=== PATIENT | female | born 1945 | race Asian ===

== ENCOUNTER 2018-10-25 09:27 | Inpatient (IN) | payer MEDICAID, OTHER ==
[~2018-10-25] VITALS: Ht 149.9 cm; Wt 69.4 kg
[~2018-10-25 09:27] MED LIST: ASPI-482 PO; GABA-585 PO; GLIP2.5T4 PO; MECL12.5 PO; METF500T9 PO; METO-239 PO; METO25TA4 PO; SIMV40TA3 PO
[2018-10-25] MEDS ORDERED: IPRATRPIUM/ALBUTEROL 0.5/2.5MG 3 ML NEBU. NEB ONE ×2 (09:45→11:15)
[2018-10-25] MEDS ORDERED: methylPREDNISolone SOD SUCC PF 125 MG/2 ML VIAL. IV ONE (09:45)
--- NOTE | 2018-10-25 09:45 | PHYS DOC ---
Past Medical History Past Medical History: Diabetes-Type II, Hypertension Past Surgical History: Coronary Bypass Surgery, Other Additional Past Surgical Histo: Cardiac Stents Alcohol Use: None Drug Use: None Adult General Chief Complaint Chief Complaint: SHORTNESS OF BREATH HPI HPI 73-year-old female was sent to the ER by her primary care physician for complaints of shortness of air and productive cough. Per daughter patient over the past few days has had increased shortness of air and was exposed to RSV. Patient has history of COPD and uses O2 PRN- she arrived with no oxygen on an initial O2 sat was 77% on room air. Pt denies CP, fever, N/V/D, or body aches. Pt's dgtr is translating as pt speaks no Surinamese. Review of Systems Review of Systems Constitutional: Denies fever or chills [] Eyes: Denies change in visual acuity, redness, or eye pain [] HENT: Denies nasal congestion or sore throat [] Respiratory: Reports cough/SOA Cardiovascular: Denies CP GI: Denies abdominal pain, nausea, vomiting, bloody stools or diarrhea [] : Denies dysuria or hematuria [] Musculoskeletal: Denies back/neck pain or joint pain [] Integument: Denies rash, swelling or skin lesions [] Neurologic: Denies headache, focal weakness or sensory changes [] Endocrine: Denies polyuria or polydipsia [] All other systems were reviewed and found to be within normal limits, except as documented in this note. Current Medications Current Medications Current Medications Medications (Trade) Dose Ordered Sig/Pipo Start Time Stop Time Status Last Admin Dose Admin Albuterol/ Ipratropium (Duoneb) 3 ml 1X ONCE 10/25/18 11:15 10/25/18 11:16 DC 10/25/18 11:17 3 ML Aspirin (Children'S Aspirin) 324 mg 1X ONCE 10/25/18 11:45 10/25/18 11:46 DC 10/25/18 12:00 324 MG Doxycycline Hyclate (Vibra-Tab) 100 mg 1X ONCE 10/25/18 11:45 10/25/18 11:46 DC 10/25/18 12:00 100 MG Methylprednisolone Sodium Succinate (SOLU-Medrol 125MG VIAL) 125 mg 1X ONCE 10/25/18 09:45 10/25/18 09:46 DC 10/25/18 10:49 125 MG Allergies Allergies Allergies Coded Allergies Type Severity Reaction Last Updated Verified No Known Drug Allergies 12/06/15 No Physical Exam Physical Exam Constitutional: Well developed, well nourished, no acute distress, non-toxic appearance. [] HENT: Normocephalic, atraumatic, bilateral ears normal, oropharynx moist, no oral exudates, nose normal. [] Eyes: Pupils equal, conjunctiva normal, no discharge. [] Neck: Normal range of motion, no tenderness, supple, no stridor. [] Cardiovascular: Heart rate regular rhythm, no murmur [] Lungs & Thorax: Coarse rhonchi bilat. upper lung wylie with slight expiratory wheeze rt upper lobe- diminished in bases. Resp. equal/nonlabored. Occasional dry cough during exam Abdomen: Bowel sounds normal, soft, no tenderness Skin: Warm, dry, no erythema, no rash. [] Back: No tenderness, no CVA tenderness. [] Extremities: No tenderness, no cyanosis, no clubbing, ROM intact, no edema. [] Neurologic: Alert and oriented X 3, normal motor function, normal sensory function, no focal deficits noted. [] Psychologic: Affect normal, judgement normal, mood normal. [] Current Patient Data Vital Signs Vital Signs Date Time Temp Pulse Resp B/P (MAP) Pulse Ox O2 Delivery O2 Flow Rate FiO2 10/25/18 11:45 68 20 175/86 (115) 95 Nasal Cannula 3.5 10/25/18 09:44 99.7 99.7 Lab Values Laboratory Tests Test 10/25/18 10:05 10/25/18 10:51 Influenza Type A Antigen Negative (NEGATIVE) Influenza Type B Antigen Negative (NEGATIVE) White Blood Count 7.4 x10^3/uL (4.0-11.0) Red Blood Count 5.75 x10^6/uL (3.50-5.40) H Hemoglobin 16.6 g/dL (12.0-15.5) H Hematocrit 49.7 % (36.0-47.0) H Mean Corpuscular Volume 86 fL (79-100) Mean Corpuscular Hemoglobin 29 pg (25-35) Mean Corpuscular Hemoglobin Concent 33 g/dL (31-37) Red Cell Distribution Width 14.8 % (11.5-14.5) H Platelet Count 97 x10^3/uL (140-400) L Neutrophils (%) (Auto) 78 % (31-73) H Lymphocytes (%) (Auto) 12 % (24-48) L Monocytes (%) (Auto) 9 % (0-9) Eosinophils (%) (Auto) 1 % (0-3) Basophils (%) (Auto) 0 % (0-3) Neutrophils # (Auto) 5.8 x10^3uL (1.8-7.7) Lymphocytes # (Auto) 0.8 x10^3/uL (1.0-4.8) L Monocytes # (Auto) 0.7 x10^3/uL (0.0-1.1) Eosinophils # (Auto) 0.1 x10^3/uL (0.0-0.7) Basophils # (Auto) 0.0 x10^3/uL (0.0-0.2) Sodium Level 141 mmol/L (136-145) Potassium Level 3.9 mmol/L (3.5-5.1) Chloride Level 101 mmol/L (98-107) Carbon Dioxide Level 31 mmol/L (21-32) Anion Gap 9 (6-14) Blood Urea Nitrogen 20 mg/dL (7-20) Creatinine 1.3 mg/dL (0.6-1.0) H Estimated GFR (Cockcroft-Gault) 40.2 BUN/Creatinine Ratio 15 (6-20) Glucose Level 167 mg/dL (70-99) H Lactic Acid Level 1.7 mmol/L (0.4-2.0) Calcium Level 8.8 mg/dL (8.5-10.1) Magnesium Level 1.8 mg/dL (1.8-2.4) Total Bilirubin 1.4 mg/dL (0.2-1.0) H Aspartate Amino Transferase (AST) 25 U/L (15-37) Alanine Aminotransferase (ALT) 26 U/L (14-59) Alkaline Phosphatase 78 U/L (46-116) Troponin I Quantitative 0.085 ng/mL (0.000-0.055) DR-Niq-T-Type Natriuretic Peptide 890 pg/mL (0-124) H Total Protein 7.4 g/dL (6.4-8.2) Albumin 3.4 g/dL (3.4-5.0) Albumin/Globulin Ratio 0.9 (1.0-1.7) L Triglycerides Level 144 mg/dL (0-150) Cholesterol Level 252 mg/dL (0-200) H LDL Cholesterol, Calculated 177 mg/dL (0-100) H VLDL Cholesterol, Calculated 29 mg/dL (0-40) Non-HDL Cholesterol Calculated 206 mg/dL (0-129) H HDL Cholesterol 46 mg/dL (40-60) Cholesterol/HDL Ratio 5.5 Thyroid Stimulating Hormone (TSH) 1.079 uIU/mL (0.358-3.74) Laboratory Tests 10/25/18 10:51 Laboratory Tests 10/25/18 10:51 EKG EKG EKG obtained 10/25/[address] Schmidt Sinus rhythm Rate 70 No STEMI Radiology/Procedures Radiology/Procedures PROCEDURE: CHEST AP ONLY Portable chest, 10/25/2018: HISTORY: Chest pain, shortness of breath Comparison is made to a study from 12/06/2015. There has been a previous median sternotomy. The heart is mildly enlarged. There is calcific plaquing of the aorta. The pulmonary vascularity is normal. No pulmonary infiltrate is seen. There is no evidence of pleural fluid. Moderate spurring is present in the spine. IMPRESSION: 1. Cardiomegaly and aortic atherosclerosis. 2. No acute cardiopulmonary abnormality is detected. Electronically signed by: Onel Mooney MD (10/25/2018 9:53 AM) [facility] DICTATED and SIGNED BY: ONEL MOONEY MD DATE: 10/25/18 0952 Course & Med Decision Making Course & Med Decision Making Pertinent Labs and Imaging studies reviewed. (See chart for details) 1200: Patient was sent to the ER by her primary care physician for complaints of shortness of air. Patient has had coarse lung sounds in upper lung wylie with rotatory wheeze. Patient arrived to the ER without oxygen and initial saturation was 66-70%. Patient was placed on O2 via nasal cannula at 3 L and oxygenation improved to 88-90%. Patient was given 2 DuoNeb treatments and IV Solu-Medrol 125 mg. Patient had EKG with no acute ST elevation or STEMI her troponin was elevated at 0.085-with patient denying any chest pain. Chest x-ray with "Cardiomegaly and aortic atherosclerosis. No acute cardiopulmonary abnormality is detected" per report. Flu test neg. Patient had no improvement in lung sounds following treatments and so with elevated troponin discussed test results and plans for admission with patient's daughter who translated for pt. Pt will be given 324 mg of aspirin. Patient will also be started on doxycycline. Blood cultures were obtained. Patient had normal limits lactic at 1.7 WBCs normal limits at 7.4 with platelets down at 97 bands on differential. 1257: Spoke with Dr. Lawrence who called back for Dr. Morrison pt's PCP- discussed pt 's case and admit plan. Will admit to [facility] for further monitoring. Will consult cardiology with admit orders for elevated troponin. Or Staff Physician Addendum: I was working in the ER during the course of this patient's visit. I was available for consultation as needed, but I was not directly involved in the care of this patient. I Alexon Disclaimer Dragon Disclaimer This electronic medical record was generated, in whole or in part, using a voice recognition dictation system. Departure Departure Impression: Primary Impression: Dyspnea Additional Impressions: COPD exacerbation Elevated troponin Disposition: ADMITTED INPATIENT Admitting Physician: Marilee Morrison Condition: STABLE Referrals: MARILEE MORRISON MD (PCP) Scripts Cholecalciferol (Vitamin D3) (Vitamin D) 50,000 Unit Capsule 04447 UNIT PO WEEKLY for replacement for 30 Days, #3 CAP Prov: Hayden SUMMERS MD 10/25/18 Tiotropium [place] (SPIRIVA) 18 Mcg Cap.w.dev 1 CAP IH DAILY for lungs, #30 CAP 3 Refills Prov: Hayden SUMMERS MD 10/25/18 Loratadine (CLARITIN) 10 Mg Tablet 1 TAB PO DAILY for allergies, #30 TAB 5 Refills Prov: Hayden SUMMERS MD 10/25/18 Losartan Potassium (LOSARTAN POTASSIUM) 50 Mg Tablet 50 MG PO DAILY for HYPERTENSION for 30 Days, #30 TAB Prov: Hayden SUMMERS MD 10/25/18 Furosemide (LASIX) 20 Mg Tablet 1 TAB PO DAILY for chf, #90 TAB 1 Refill Prov: Hayden SUMMERS MD 10/25/18 Atorvastatin Calcium (ATORVASTATIN CALCIUM) 40 Mg Tablet 1 TAB PO DAILY for cholesterol, #30 TAB 5 Refills Prov: Hayden SUMMERS MD 10/25/18 Problem Qualifiers RM SIMEON APRN Oct 25, 2018 09:45 JULIO SCHMIDT MD Oct 26, 2018 06:05
--- NOTE | 2018-10-25 09:58 | RAD ---
Portable chest, 10/25/2018: HISTORY: Chest pain, shortness of breath Comparison is made to a study from 12/06/2015. There has been a previous median sternotomy. The heart is mildly enlarged. There is calcific plaquing of the aorta. The pulmonary vascularity is normal. No pulmonary infiltrate is seen. There is no evidence of pleural fluid. Moderate spurring is present in the spine. IMPRESSION: 1. Cardiomegaly and aortic atherosclerosis. 2. No acute cardiopulmonary abnormality is detected. Electronically signed by: Onel Mooney MD (10/25/2018 9:53 AM) [facility]
--- NOTE | 2018-10-25 10:22 | EKG ---
[facility] [address] [place] [address] Test Date: 2018-10-25 Test Time: 10:08:57 Pat Name: TRACEY LOPEZ Department: Room: Gender: F Set Builder: : [id number] Requested By: RM SIMEON Order Number: [id number] Reading MD: Fran Juarez MD Measurements Intervals [place] Rate: 69 P: [place]: QRS: 25 QRSD: 82 T: 41 QT: 414 QTc: 450 Interpretive Statements SR NON-SPECIFIC ST/T CHANGES Electronically Signed On 10-25-2018 12:34:58 CAP MAKER by Fran Juarez MD
[2018-10-25 10:35] LABS: INFLUENZA A PATIENT NEGATIVE (NEGATIVE); INFLUENZA B PATIENT NEGATIVE (NEGATIVE)
[2018-10-25 11:05] LABS: BASO % 0 % (0-3); EOS # 0.1 x10^3/uL (0.0-0.7); EOS % 1 % (0-3); HEMATOCRIT 49.7 % (36.0-47.0); HEMOGLOBIN 16.6 g/dL (12.0-15.5); LYMPH # 0.8 x10^3/uL (1.0-4.8); LYMPH % 12 % (24-48); MEAN CORPUSCULAR HEMOGLOBIN 29 pg (25-35); MEAN CORPUSCULAR HGB CONC 33 g/dL (31-37); MEAN CORPUSCULAR VOLUME 86 fL (79-100); MONO # 0.7 x10^3/uL (0.0-1.1); MONO % 9 % (0-9); NEUT # 5.8 x10^3uL (1.8-7.7); NEUT % 78 % (31-73); PLATELET COUNT 97 x10^3/uL (140-400); RED BLOOD COUNT 5.75 x10^6/uL (3.50-5.40); RED CELL DISTRIBUTION WIDTH 14.8 % (11.5-14.5); WHITE BLOOD COUNT 7.4 x10^3/uL (4.0-11.0)
[2018-10-25 11:14] LABS: CALCIUM 8.8 mg/dL (8.5-10.1); CREATININE 1.3 mg/dL (0.6-1.0); GFR 40.2; POTASSIUM 3.9 mmol/L (3.5-5.1)
[2018-10-25 11:20] LABS: ALBUMIN 3.4 g/dL (3.4-5.0); ALBUMIN/GLOBULIN RATIO 0.9 (1.0-1.7); MAGNESIUM 1.8 mg/dL (1.8-2.4); TOTAL BILIRUBIN 1.4 mg/dL (0.2-1.0); TOTAL PROTEIN 7.4 g/dL (6.4-8.2)
[2018-10-25] MEDS ORDERED: DOXYCYCLINE HYCLATE 100 MG TABLET PO ONE (11:45)
[2018-10-25] MEDS ORDERED: ASPIRIN CHEWABLE 81 MG TABLET. PO ONE (11:45)
[2018-10-25 14:35] LABS: BILIRUBIN,URINE NEGATIVE (NEG); CLARITY,URINE CLEAR; COLOR,URINE AMBER; NITRITE,URINE NEGATIVE (NEG); PROTEIN,URINE >=300 mg/dL (NEG-TRACE)
[2018-10-25 14:42] LABS: BACTERIA,URINE FEW /HPF (0-FEW); HYALINE CASTS, URINE FEW /HPF; RBC,URINE OCC /HPF (0-2); SQUAMOUS EPITHELIAL CELL,UR MANY /LPF; WBC,URINE OCC /HPF (0-4)
--- NOTE | 2018-10-25 15:01 | PDOC2 ---
BRITTANY NUÑEZ LAWN TECHNICIAN 10/25/18 1501: CARDIAC CONSULT DATE OF CONSULT Date of Consult DATE: 10/25/18 TIME: 14:47 REASON FOR CONSULT Reason for Consult: elevated troponin REFERRING PHYSICIAN Referring Physician: diamond SOURCE Source: Caregiver (daughter), Chart review, Patient HISTORY OF PRESENT ILLNESS HISTORY OF PRESENT ILLNESS This is a 73 yo female admitted for complains of SOA and productive cough with white sputum. She has been exposed to RSV from her 2 yo nephew recently. Her SOA and cough started about last week and was getting worse. No reported fever. She also has COPD from significant secondary tobacco exposure at her younger years and has not been routinely using her advair and albuterol. Denies any chest pain or SOA prior to this event. She has been having intermittent shapr simon pain since her cough started and again reproducible with cough. Presently her SOA is better and no CP. she has had aortic dissection repair and CABG in 2009 and has not seen her burlesque dancer in a while otherwise she has been complaint with her medications. PAST MEDICAL HISTORY Cardiovascular: CAD, HTN, Hyperlipidemia, Other (aortic dissection with repair in 2009) CENTRAL NERVOUS SYSTEM: Periperal neuropathy, Vertigo, Other (meningioma) GI: No pertinent hx Musculoskeletal: Osteoarthritis Infectious disease: No pertinent hx ENT: No pertinent hx Renal/: Chronic renal insuff (?) Endocrine: Diabetes (2) Dermatology: No pertinent hx PAST SURGICAL HISTORY Past Surgical History: CABG, Other (PCI/stent) FAMILY HISTORY Family History noncontributory SOCIAL HISTORY Smoke: No ALCOHOL: none Drugs: None Lives: with Family CURRENT MEDICATIONS CURRENT MEDICATIONS Current Medications Medications (Trade) Dose Ordered Sig/Pipo Route PRN Reason Start Time Stop Time Status Last Admin Dose Admin Albuterol/ Ipratropium (Duoneb) 3 ml 1X ONCE NEB 10/25/18 09:45 10/25/18 09:46 DC 10/25/18 09:54 Methylprednisolone Sodium Succinate (SOLU-Medrol 125MG VIAL) 125 mg 1X ONCE IV 10/25/18 09:45 10/25/18 09:46 DC 10/25/18 10:49 Albuterol/ Ipratropium (Duoneb) 3 ml 1X ONCE NEB 10/25/18 11:15 10/25/18 11:16 DC 10/25/18 11:17 Doxycycline Hyclate (Vibra-Tab) 100 mg 1X ONCE PO 10/25/18 11:45 10/25/18 11:46 DC 10/25/18 12:00 Aspirin (Children'S Aspirin) 324 mg 1X ONCE PO 10/25/18 11:45 10/25/18 11:46 DC 10/25/18 12:00 ALLERGIES ALLERGIES: Coded Allergies: No Known Drug Allergies (Unverified , 12/06/15) ROS Review of System limited: SANJU, language barrier PHYSICAL EXAM General: Alert, Oriented X3, Cooperative, mild distress HEENT: Atraumatic, Mucous membr. moist/pink Lungs: Other (faint wheeze) Heart: Regular rate (SR), Normal S1, Normal S2, No murmurs Abdomen: Soft, No tenderness Extremities: No cyanosis, No edema Skin: No breakdown, No significant lesion Neuro: Normal speech, Sensation intact Psych/Mental Status: Mental status NL, Mood NL MUSCULOSKELETAL: Osteoarthritic changes both hands VITALS VITALS Vital Signs Date Time Temp Pulse Resp B/P (MAP) Pulse Ox O2 Delivery O2 Flow Rate FiO2 10/25/18 14:07 74 20 169/86 (113) 98 Nasal Cannula 3.5 10/25/18 09:44 99.7 99.7 LABS Lab: Laboratory Tests Test 10/25/18 10:05 10/25/18 10:51 10/25/18 14:20 Influenza Type A Antigen Negative (NEGATIVE) Influenza Type B Antigen Negative (NEGATIVE) White Blood Count 7.4 x10^3/uL (4.0-11.0) Red Blood Count 5.75 x10^6/uL (3.50-5.40) Hemoglobin 16.6 g/dL (12.0-15.5) Hematocrit 49.7 % (36.0-47.0) Mean Corpuscular Volume 86 fL (79-100) Mean Corpuscular Hemoglobin 29 pg (25-35) Mean Corpuscular Hemoglobin Concent 33 g/dL (31-37) Red Cell Distribution Width 14.8 % (11.5-14.5) Platelet Count 97 x10^3/uL (140-400) Neutrophils (%) (Auto) 78 % (31-73) Lymphocytes (%) (Auto) 12 % (24-48) Monocytes (%) (Auto) 9 % (0-9) Eosinophils (%) (Auto) 1 % (0-3) Basophils (%) (Auto) 0 % (0-3) Neutrophils # (Auto) 5.8 x10^3uL (1.8-7.7) Lymphocytes # (Auto) 0.8 x10^3/uL (1.0-4.8) Monocytes # (Auto) 0.7 x10^3/uL (0.0-1.1) Eosinophils # (Auto) 0.1 x10^3/uL (0.0-0.7) Basophils # (Auto) 0.0 x10^3/uL (0.0-0.2) Sodium Level 141 mmol/L (136-145) Potassium Level 3.9 mmol/L (3.5-5.1) Chloride Level 101 mmol/L (98-107) Carbon Dioxide Level 31 mmol/L (21-32) Anion Gap 9 (6-14) Blood Urea Nitrogen 20 mg/dL (7-20) Creatinine 1.3 mg/dL (0.6-1.0) Estimated GFR (Cockcroft-Gault) 40.2 BUN/Creatinine Ratio 15 (6-20) Glucose Level 167 mg/dL (70-99) Lactic Acid Level 1.7 mmol/L (0.4-2.0) Calcium Level 8.8 mg/dL (8.5-10.1) Magnesium Level 1.8 mg/dL (1.8-2.4) Total Bilirubin 1.4 mg/dL (0.2-1.0) Aspartate Amino Transf (AST/SGOT) 25 U/L (15-37) Alanine Aminotransferase (ALT/SGPT) 26 U/L (14-59) Alkaline Phosphatase 78 U/L (46-116) Troponin I Quantitative 0.085 ng/mL (0.000-0.055) LI-Upt-A-Type Natriuretic Peptide 890 pg/mL (0-124) Total Protein 7.4 g/dL (6.4-8.2) Albumin 3.4 g/dL (3.4-5.0) Albumin/Globulin Ratio 0.9 (1.0-1.7) Urine Collection Type Unknown Urine Color [place] Urine Clarity Clear Urine pH 6.0 Urine Specific [place] >=1.030 Urine Protein >=300 mg/dL (NEG-TRACE) Urine Glucose (UA) Negative mg/dL (NEG) Urine Ketones (Stick) Negative mg/dL (NEG) Urine Blood Trace (NEG) Urine Nitrite Negative (NEG) Urine Bilirubin Negative (NEG) Urine Urobilinogen Dipstick 1.0 mg/dL (0.2 mg/dL) Urine Leukocyte Esterase Negative (NEG) Urine RBC Occ /HPF (0-2) Urine WBC Occ /HPF (0-4) Urine Squamous Epithelial Cells Many /LPF Urine Bacteria Few /HPF (0-FEW) Urine Hyaline Casts Few /HPF Urine Mucus Marked /LPF ASSESSMENT/PLAN ASSESSMENT/PLAN 1. AECOPD: recent RSV exposure. Noncompliant with her inhalers. 2. Elevated troponin: initial at 0.085, EKG SR no acute changes. Demand mediated due to hypoxia. 3. Thrombocytopenia: possibly reactive. defer to PCP 4. HTN: controlled 5. HLP 6. DM2/DPN 7. Suspect CKD3 with macroalbuminuria 8. CAD: past CABG, clinically stable. 9. Pleuritic CP: reproducible with cough Recommendations 1. TTE, lipids and TSH. 2. Consult pulmonary. Solumedrol given in ED. 3. Consider outpt stress test as an outpt unless significant changes to TTE. and will trend troponin 4. Continue secondary prevention measures. 5. May follow up with burlesque dancer upon discharge. LUIS MIGUEL MEHTA MD 10/26/18 0915: CARDIAC CONSULT ASSESSMENT/PLAN ASSESSMENT/PLAN Patient seen and examined 10/25/18. Agree with BREWING DIRECTOR's assessment and plan. Slight troponin elevation probably demand ischemia. CAD status clinically stable overall. Check 2-D echo to assess LV function and rule out wall motion abnormalities. Consider ischemic evaluation as an outpatient. Continue current treatment for acute COPD exacerbation. Thank you for your consultation. BRITTANY NUÑEZ APRN Oct 25, 2018 15:01 LUIS MIGUEL MEHTA MD Oct 26, 2018 09:15
[2018-10-25 15:37] LABS: CHOLESTEROL/HDL RATIO 5.5
[2018-10-25 16:00] VITALS: BP 151/55
[2018-10-25] MEDS ORDERED: ALBU2.5V8 INH (16:04)
[2018-10-25] MEDS ORDERED: SITA50TA PO (16:04)
[2018-10-25] MEDS ORDERED: ERGO500027 PO (16:04)
[2018-10-25] MEDS ORDERED: ATOR40TA59 PO (16:57)
[2018-10-25] MEDS ORDERED: FURO-69 PO (16:57)
[2018-10-25] MEDS ORDERED: LORA10TA68 PO (16:57)
[2018-10-25] MEDS ORDERED: CHOL500050 PO (16:57)
[2018-10-25] MEDS ORDERED: LOSA-73 PO (16:57)
[2018-10-25] MEDS ORDERED: TIOT18CA IH (16:57)
[2018-10-25] MEDS ORDERED: MECLIZINE HCL 12.5 MG TABLET. PO PRN (17:00)
[2018-10-25] MEDS ORDERED: ALBUTEROL SULFATE 2.5 MG/3 ML NEBU. INH PRN ×2 (17:00→17:30)
[2018-10-25] MEDS ORDERED: DEXTROSE 50% 25 GM / 50ML DISP.SYRIN. IV PRN (17:00)
[2018-10-25] MEDS ORDERED: GABAPENTIN 100 MG CAPSULE. PO PRN (17:00)
--- NOTE | 2018-10-25 17:39 | PDOC ---
PULMONARY PROGRESS NOTES Vitals Vital Signs Date Time Temp Pulse Resp B/P (MAP) Pulse Ox O2 Delivery O2 Flow Rate FiO2 10/25/18 16:00 97.9 70 16 151/55 (87) 96 97.9 10/25/18 14:07 Nasal Cannula 3.5 Labs Laboratory Tests Test 10/25/18 10:05 10/25/18 10:51 10/25/18 14:20 10/25/18 16:00 Influenza Type A Antigen Negative (NEGATIVE) Influenza Type B Antigen Negative (NEGATIVE) White Blood Count 7.4 x10^3/uL (4.0-11.0) Red Blood Count 5.75 x10^6/uL (3.50-5.40) Hemoglobin 16.6 g/dL (12.0-15.5) Hematocrit 49.7 % (36.0-47.0) Mean Corpuscular Volume 86 fL (79-100) Mean Corpuscular Hemoglobin 29 pg (25-35) Mean Corpuscular Hemoglobin Concent 33 g/dL (31-37) Red Cell Distribution Width 14.8 % (11.5-14.5) Platelet Count 97 x10^3/uL (140-400) Neutrophils (%) (Auto) 78 % (31-73) Lymphocytes (%) (Auto) 12 % (24-48) Monocytes (%) (Auto) 9 % (0-9) Eosinophils (%) (Auto) 1 % (0-3) Basophils (%) (Auto) 0 % (0-3) Neutrophils # (Auto) 5.8 x10^3uL (1.8-7.7) Lymphocytes # (Auto) 0.8 x10^3/uL (1.0-4.8) Monocytes # (Auto) 0.7 x10^3/uL (0.0-1.1) Eosinophils # (Auto) 0.1 x10^3/uL (0.0-0.7) Basophils # (Auto) 0.0 x10^3/uL (0.0-0.2) Sodium Level 141 mmol/L (136-145) Potassium Level 3.9 mmol/L (3.5-5.1) Chloride Level 101 mmol/L (98-107) Carbon Dioxide Level 31 mmol/L (21-32) Anion Gap 9 (6-14) Blood Urea Nitrogen 20 mg/dL (7-20) Creatinine 1.3 mg/dL (0.6-1.0) Estimated GFR (Cockcroft-Gault) 40.2 BUN/Creatinine Ratio 15 (6-20) Glucose Level 167 mg/dL (70-99) Lactic Acid Level 1.7 mmol/L (0.4-2.0) Calcium Level 8.8 mg/dL (8.5-10.1) Magnesium Level 1.8 mg/dL (1.8-2.4) Total Bilirubin 1.4 mg/dL (0.2-1.0) Aspartate Amino Transf (AST/SGOT) 25 U/L (15-37) Alanine Aminotransferase (ALT/SGPT) 26 U/L (14-59) Alkaline Phosphatase 78 U/L (46-116) Troponin I Quantitative 0.085 ng/mL (0.000-0.055) 0.063 ng/mL (0.000-0.055) LG-Zjt-Z-Type Natriuretic Peptide 890 pg/mL (0-124) Total Protein 7.4 g/dL (6.4-8.2) Albumin 3.4 g/dL (3.4-5.0) Albumin/Globulin Ratio 0.9 (1.0-1.7) Triglycerides Level 144 mg/dL (0-150) Cholesterol Level 252 mg/dL (0-200) LDL Cholesterol, Calculated 177 mg/dL (0-100) VLDL Cholesterol, Calculated 29 mg/dL (0-40) Non-HDL Cholesterol Calculated 206 mg/dL (0-129) HDL Cholesterol 46 mg/dL (40-60) Cholesterol/HDL Ratio 5.5 Thyroid Stimulating Hormone (TSH) 1.079 uIU/mL (0.358-3.74) Urine Collection Type Unknown Urine Color Zena Urine Clarity Clear Urine pH 6.0 Urine Specific [place] >=1.030 Urine Protein >=300 mg/dL (NEG-TRACE) Urine Glucose (UA) Negative mg/dL (NEG) Urine Ketones (Stick) Negative mg/dL (NEG) Urine Blood Trace (NEG) Urine Nitrite Negative (NEG) Urine Bilirubin Negative (NEG) Urine Urobilinogen Dipstick 1.0 mg/dL (0.2 mg/dL) Urine Leukocyte Esterase Negative (NEG) Urine RBC Occ /HPF (0-2) Urine WBC Occ /HPF (0-4) Urine Squamous Epithelial Cells Many /LPF Urine Bacteria Few /HPF (0-FEW) Urine Hyaline Casts Few /HPF Urine Mucus Marked /LPF Test 10/25/18 17:00 Glucose (Fingerstick) 353 mg/dL (70-99) Laboratory Tests Test 10/25/18 10:05 10/25/18 10:51 10/25/18 14:20 10/25/18 16:00 Influenza Type A Antigen Negative (NEGATIVE) Influenza Type B Antigen Negative (NEGATIVE) White Blood Count 7.4 x10^3/uL (4.0-11.0) Red Blood Count 5.75 x10^6/uL (3.50-5.40) Hemoglobin 16.6 g/dL (12.0-15.5) Hematocrit 49.7 % (36.0-47.0) Mean Corpuscular Volume 86 fL (79-100) Mean Corpuscular Hemoglobin 29 pg (25-35) Mean Corpuscular Hemoglobin Concent 33 g/dL (31-37) Red Cell Distribution Width 14.8 % (11.5-14.5) Platelet Count 97 x10^3/uL (140-400) Neutrophils (%) (Auto) 78 % (31-73) Lymphocytes (%) (Auto) 12 % (24-48) Monocytes (%) (Auto) 9 % (0-9) Eosinophils (%) (Auto) 1 % (0-3) Basophils (%) (Auto) 0 % (0-3) Neutrophils # (Auto) 5.8 x10^3uL (1.8-7.7) Lymphocytes # (Auto) 0.8 x10^3/uL (1.0-4.8) Monocytes # (Auto) 0.7 x10^3/uL (0.0-1.1) Eosinophils # (Auto) 0.1 x10^3/uL (0.0-0.7) Basophils # (Auto) 0.0 x10^3/uL (0.0-0.2) Sodium Level 141 mmol/L (136-145) Potassium Level 3.9 mmol/L (3.5-5.1) Chloride Level 101 mmol/L (98-107) Carbon Dioxide Level 31 mmol/L (21-32) Anion Gap 9 (6-14) Blood Urea Nitrogen 20 mg/dL (7-20) Creatinine 1.3 mg/dL (0.6-1.0) Estimated GFR (Cockcroft-Gault) 40.2 BUN/Creatinine Ratio 15 (6-20) Glucose Level 167 mg/dL (70-99) Lactic Acid Level 1.7 mmol/L (0.4-2.0) Calcium Level 8.8 mg/dL (8.5-10.1) Magnesium Level 1.8 mg/dL (1.8-2.4) Total Bilirubin 1.4 mg/dL (0.2-1.0) Aspartate Amino Transf (AST/SGOT) 25 U/L (15-37) Alanine Aminotransferase (ALT/SGPT) 26 U/L (14-59) Alkaline Phosphatase 78 U/L (46-116) Troponin I Quantitative 0.085 ng/mL (0.000-0.055) 0.063 ng/mL (0.000-0.055) LK-Wiw-Y-Type Natriuretic Peptide 890 pg/mL (0-124) Total Protein 7.4 g/dL (6.4-8.2) Albumin 3.4 g/dL (3.4-5.0) Albumin/Globulin Ratio 0.9 (1.0-1.7) Triglycerides Level 144 mg/dL (0-150) Cholesterol Level 252 mg/dL (0-200) LDL Cholesterol, Calculated 177 mg/dL (0-100) VLDL Cholesterol, Calculated 29 mg/dL (0-40) Non-HDL Cholesterol Calculated 206 mg/dL (0-129) HDL Cholesterol 46 mg/dL (40-60) Cholesterol/HDL Ratio 5.5 Thyroid Stimulating Hormone (TSH) 1.079 uIU/mL (0.358-3.74) Urine Collection Type Unknown Urine Color Zena Urine Clarity Clear Urine pH 6.0 Urine Specific [place] >=1.030 Urine Protein >=300 mg/dL (NEG-TRACE) Urine Glucose (UA) Negative mg/dL (NEG) Urine Ketones (Stick) Negative mg/dL (NEG) Urine Blood Trace (NEG) Urine Nitrite Negative (NEG) Urine Bilirubin Negative (NEG) Urine Urobilinogen Dipstick 1.0 mg/dL (0.2 mg/dL) Urine Leukocyte Esterase Negative (NEG) Urine RBC Occ /HPF (0-2) Urine WBC Occ /HPF (0-4) Urine Squamous Epithelial Cells Many /LPF Urine Bacteria Few /HPF (0-FEW) Urine Hyaline Casts Few /HPF Urine Mucus Marked /LPF Test 10/25/18 17:00 Glucose (Fingerstick) 353 mg/dL (70-99) Medications Active Scripts Medications Dose Route/Sig Max Daily Dose Days Date Category Dose Instructions Vitamin D (Cholecalciferol (Vitamin D3)) 50,000 Unit Capsule 50,000 Unit PO WEEKLY 30 10/25/18 Rx Spiriva (Tiotropium [place]) 18 Mcg Cap.w.dev 1 Cap IH DAILY 10/25/18 Rx Claritin (Loratadine) 10 Mg Tablet 1 Tab PO DAILY 10/25/18 Rx Losartan Potassium 50 Mg Tablet 50 Mg PO DAILY 30 10/25/18 Rx Lasix (Furosemide) 20 Mg Tablet 1 Tab PO DAILY 10/25/18 Rx Atorvastatin Calcium 40 Mg Tablet 1 Tab PO DAILY 10/25/18 Rx Vitamin D2 (Ergocalciferol (Vitamin D2)) 50,000 Unit Capsule 1 Cap PO WEEKLY 10/25/18 Reported Proair Hfa (Albuterol Sulfate) 8.5 Gm Hfa.aer.ad 1 Puff INH QID PRN 10/25/18 Reported Januvia (Sitagliptin Phosphate) 50 Mg Tablet 1 Tab PO DAILY 10/25/18 Reported Metoprolol Tartrate 25 Mg Tablet 25 Mg PO BID 12/08/15 Reported Aspir 81 (Aspirin) 81 Mg Tablet.dr 1 Tab PO DAILY 12/08/15 Reported Antivert (Meclizine Hcl) 12.5 Mg Tablet 25 Mg PO PRN TID PRN 12/08/15 Rx Glipizide Er (Glipizide) 2.5 Mg Tab.er.24 4 Tab PO DAILY 12/06/15 Reported Gave this morning Take again tomorrow morning Gabapentin (Gabapentin) 100 Mg Capsule 100 Mg PO PRN Q8HRS PRN 12/06/15 Reported Not given on this admission Take as previously directed Metformin Hcl Er (Metformin Hcl) 500 Mg Tab.er.24h 2 Tab PO BID 12/06/15 Reported Gave this morning Take again tonight Impression . DICTATED AECOPD AGREE WITHC CURRENT RX THANKS HERIBERTO MENON MD Oct 25, 2018 17:39
[2018-10-25] MEDS: metFORMIN XR 500 MG TAB.ER.24H PO SCH (17:44)
[2018-10-25] MEDS: INSULIN LISPRO 300 UNITS/3 ML INSULN.PEN. SQ SCH (17:48)
[2018-10-25 19:25] VITALS: BP 192/81
[2018-10-25] MEDS ORDERED: IPRATRPIUM/ALBUTEROL 0.5/2.5MG 3 ML NEBU. NEB SCH (20:00)
[2018-10-25] MEDS: ALBUTEROL SULFATE 2.5 MG/3 ML NEBU. NEB SCH (20:14)
[2018-10-25] MEDS: METOPROLOL TART IMMED RELEASE 25 MG TABLET. PO SCH (21:00)
[2018-10-25] MEDS ORDERED: ATORVASTATIN CALCIUM 40 MG TABLET. PO SCH (21:00)
[2018-10-25] MEDS ORDERED: SIMVASTATIN 40 MG TABLET. PO SCH (21:00)
--- NOTE | 2018-10-25 22:06 | CONS ---
DATE OF CONSULTATION: 10/25/2018 ATTENDING PHYSICIAN: Dr. Morrison. REASON FOR CONSULTATION: The patient seen in pulmonary consultation at the request of Dr. Morrison for hypoxemia. HISTORY OF PRESENT ILLNESS: The patient is a 73-year-old female that was seen by Dr. Morrison in the office for increasing shortness of breath and cough. She was apparently exposed to RSV. She became increasingly more short of breath. She normally wears 2 liters of oxygen supplementation. She was found to have O2 saturation of 77% on room air. She was admitted. I was asked to see her in consultation. Denies fever, chills, nausea, vomiting. PAST MEDICAL AND PAST SURGICAL HISTORY: Type 2 diabetes, hypertension, coronary artery bypass grafting, previous cardiac stenting. REVIEW OF SYSTEMS: CONSTITUTIONAL: No fever or chills. EYES: No change in visual acuity. HEENT: No nasal congestion or sore throat. PULMONARY: As indicated above. CARDIOVASCULAR: No chest pain or pressure. GASTROINTESTINAL: No nausea, vomiting, diarrhea. GENITOURINARY: No dysuria or frequency. CURRENT MEDICATIONS: List was reviewed. ALLERGIES: No known drug allergies. PHYSICAL EXAMINATION: GENERAL: The patient was in no respiratory distress, normally on 2 liters of oxygen supplementation. VITAL SIGNS: She is up to 4 liters now. HEENT: Eyes, the sclerae were nonicteric. NECK: Jugular venous distention was not elevated. No lymphadenopathy. CHEST: Full expansion. LUNGS: Coarse breath sounds, expiratory wheeze. CARDIOVASCULAR: Regular rate and rhythm with S1, S2, no S3. ABDOMEN: Soft, nontender, nondistended. EXTREMITIES: No clubbing, cyanosis or edema. NEUROLOGIC: The patient was awake, alert, following commands. A detailed neuro exam was not performed. LABORATORY DATA: Reviewed. White count was normal. Electrolytes were noted. Chest x-ray: No acute infiltrate. IMPRESSION: 1. Acute on chronic hypoxemic respiratory failure. 2. Acute nonspecific bronchitis. 3. Recent RSV exposure. 4. Significant wheezing, dyspnea secondary to above. PLAN: 1. Continue current support with oxygen supplementation. 2. Nebulized treatments. 3. Steroids. 4. DVT prophylaxis. 5. Continue home meds. I do appreciate the privilege in sharing in this patient's care. HERIBERTO MENON MD DR: ABE/nolvia JOB#: [id number] / [id number]
[2018-10-25 23:44] VITALS: BP 182/81
[2018-10-26 03:46] VITALS: BP 143/83
[2018-10-26 05:02] LABS: BASO % 0 % (0-3); EOS % 0 % (0-3); HEMATOCRIT 46.9 % (36.0-47.0); HEMOGLOBIN 15.9 g/dL (12.0-15.5); LYMPH # 0.8 x10^3/uL (1.0-4.8); LYMPH % 14 % (24-48); MEAN CORPUSCULAR HEMOGLOBIN 29 pg (25-35); MEAN CORPUSCULAR HGB CONC 34 g/dL (31-37); MEAN CORPUSCULAR VOLUME 86 fL (79-100); MONO # 0.3 x10^3/uL (0.0-1.1); MONO % 6 % (0-9); NEUT # 4.3 x10^3uL (1.8-7.7); NEUT % 80 % (31-73); PLATELET COUNT 102 x10^3/uL (140-400); RED BLOOD COUNT 5.43 x10^6/uL (3.50-5.40); RED CELL DISTRIBUTION WIDTH 14.9 % (11.5-14.5); WHITE BLOOD COUNT 5.4 x10^3/uL (4.0-11.0)
[2018-10-26 05:43] LABS: CALCIUM 9.2 mg/dL (8.5-10.1); CREATININE 1.8 mg/dL (0.6-1.0); GFR 27.6; POTASSIUM 3.9 mmol/L (3.5-5.1)
[2018-10-26 07:00] VITALS: BP 161/58
[2018-10-26] MEDS: ALBUTEROL SULFATE 2.5 MG/3 ML NEBU. NEB SCH ×3 (08:00→15:46)
--- NOTE | 2018-10-26 08:48 | PDOC ---
PULMONARY PROGRESS NOTES Subjective PT NOT MORE SOA Vitals Vital Signs Date Time Temp Pulse Resp B/P (MAP) Pulse Ox O2 Delivery O2 Flow Rate FiO2 10/26/18 07:00 97.9 61 20 161/58 (92) 97 Nasal Cannula 3.5 97.9 ROS: No Nausea, No Chest Pain, No Abdominal Pain, No Increase Cough Lungs: Wheezing Cardiovascular: S1, S2 Abdomen: Soft Neuro Exam: Alert Extremities: No Edema Skin: Warm Labs Laboratory Tests Test 10/25/18 10:05 10/25/18 10:51 10/25/18 14:20 10/25/18 16:00 Influenza Type A Antigen Negative (NEGATIVE) Influenza Type B Antigen Negative (NEGATIVE) White Blood Count 7.4 x10^3/uL (4.0-11.0) Red Blood Count 5.75 x10^6/uL (3.50-5.40) Hemoglobin 16.6 g/dL (12.0-15.5) Hematocrit 49.7 % (36.0-47.0) Mean Corpuscular Volume 86 fL (79-100) Mean Corpuscular Hemoglobin 29 pg (25-35) Mean Corpuscular Hemoglobin Concent 33 g/dL (31-37) Red Cell Distribution Width 14.8 % (11.5-14.5) Platelet Count 97 x10^3/uL (140-400) Neutrophils (%) (Auto) 78 % (31-73) Lymphocytes (%) (Auto) 12 % (24-48) Monocytes (%) (Auto) 9 % (0-9) Eosinophils (%) (Auto) 1 % (0-3) Basophils (%) (Auto) 0 % (0-3) Neutrophils # (Auto) 5.8 x10^3uL (1.8-7.7) Lymphocytes # (Auto) 0.8 x10^3/uL (1.0-4.8) Monocytes # (Auto) 0.7 x10^3/uL (0.0-1.1) Eosinophils # (Auto) 0.1 x10^3/uL (0.0-0.7) Basophils # (Auto) 0.0 x10^3/uL (0.0-0.2) Sodium Level 141 mmol/L (136-145) Potassium Level 3.9 mmol/L (3.5-5.1) Chloride Level 101 mmol/L (98-107) Carbon Dioxide Level 31 mmol/L (21-32) Anion Gap 9 (6-14) Blood Urea Nitrogen 20 mg/dL (7-20) Creatinine 1.3 mg/dL (0.6-1.0) Estimated GFR (Cockcroft-Gault) 40.2 BUN/Creatinine Ratio 15 (6-20) Glucose Level 167 mg/dL (70-99) Lactic Acid Level 1.7 mmol/L (0.4-2.0) Calcium Level 8.8 mg/dL (8.5-10.1) Magnesium Level 1.8 mg/dL (1.8-2.4) Total Bilirubin 1.4 mg/dL (0.2-1.0) Aspartate Amino Transf (AST/SGOT) 25 U/L (15-37) Alanine Aminotransferase (ALT/SGPT) 26 U/L (14-59) Alkaline Phosphatase 78 U/L (46-116) Troponin I Quantitative 0.085 ng/mL (0.000-0.055) 0.063 ng/mL (0.000-0.055) IU-Nxk-W-Type Natriuretic Peptide 890 pg/mL (0-124) Total Protein 7.4 g/dL (6.4-8.2) Albumin 3.4 g/dL (3.4-5.0) Albumin/Globulin Ratio 0.9 (1.0-1.7) Triglycerides Level 144 mg/dL (0-150) Cholesterol Level 252 mg/dL (0-200) LDL Cholesterol, Calculated 177 mg/dL (0-100) VLDL Cholesterol, Calculated 29 mg/dL (0-40) Non-HDL Cholesterol Calculated 206 mg/dL (0-129) HDL Cholesterol 46 mg/dL (40-60) Cholesterol/HDL Ratio 5.5 Thyroid Stimulating Hormone (TSH) 1.079 uIU/mL (0.358-3.74) Urine Collection Type Unknown Urine Color Zena Urine Clarity Clear Urine pH 6.0 Urine Specific [place] >=1.030 Urine Protein >=300 mg/dL (NEG-TRACE) Urine Glucose (UA) Negative mg/dL (NEG) Urine Ketones (Stick) Negative mg/dL (NEG) Urine Blood Trace (NEG) Urine Nitrite Negative (NEG) Urine Bilirubin Negative (NEG) Urine Urobilinogen Dipstick 1.0 mg/dL (0.2 mg/dL) Urine Leukocyte Esterase Negative (NEG) Urine RBC Occ /HPF (0-2) Urine WBC Occ /HPF (0-4) Urine Squamous Epithelial Cells Many /LPF Urine Bacteria Few /HPF (0-FEW) Urine Hyaline Casts Few /HPF Urine Mucus Marked /LPF Test 10/25/18 17:00 10/25/18 19:00 10/25/18 20:56 10/26/18 04:20 Glucose (Fingerstick) 353 mg/dL (70-99) 293 mg/dL (70-99) Troponin I Quantitative 0.068 ng/mL (0.000-0.055) White Blood Count 5.4 x10^3/uL (4.0-11.0) Red Blood Count 5.43 x10^6/uL (3.50-5.40) Hemoglobin 15.9 g/dL (12.0-15.5) Hematocrit 46.9 % (36.0-47.0) Mean Corpuscular Volume 86 fL (79-100) Mean Corpuscular Hemoglobin 29 pg (25-35) Mean Corpuscular Hemoglobin Concent 34 g/dL (31-37) Red Cell Distribution Width 14.9 % (11.5-14.5) Platelet Count 102 x10^3/uL (140-400) Neutrophils (%) (Auto) 80 % (31-73) Lymphocytes (%) (Auto) 14 % (24-48) Monocytes (%) (Auto) 6 % (0-9) Eosinophils (%) (Auto) 0 % (0-3) Basophils (%) (Auto) 0 % (0-3) Neutrophils # (Auto) 4.3 x10^3uL (1.8-7.7) Lymphocytes # (Auto) 0.8 x10^3/uL (1.0-4.8) Monocytes # (Auto) 0.3 x10^3/uL (0.0-1.1) Eosinophils # (Auto) 0.0 x10^3/uL (0.0-0.7) Basophils # (Auto) 0.0 x10^3/uL (0.0-0.2) Sodium Level 142 mmol/L (136-145) Potassium Level 3.9 mmol/L (3.5-5.1) Chloride Level 102 mmol/L (98-107) Carbon Dioxide Level 29 mmol/L (21-32) Anion Gap 11 (6-14) Blood Urea Nitrogen 35 mg/dL (7-20) Creatinine 1.8 mg/dL (0.6-1.0) Estimated GFR (Cockcroft-Gault) 27.6 Glucose Level 186 mg/dL (70-99) Calcium Level 9.2 mg/dL (8.5-10.1) Test 10/26/18 07:12 Glucose (Fingerstick) 163 mg/dL (70-99) Laboratory Tests Test 10/25/18 10:05 10/25/18 10:51 10/25/18 14:20 10/25/18 16:00 Influenza Type A Antigen Negative (NEGATIVE) Influenza Type B Antigen Negative (NEGATIVE) White Blood Count 7.4 x10^3/uL (4.0-11.0) Red Blood Count 5.75 x10^6/uL (3.50-5.40) Hemoglobin 16.6 g/dL (12.0-15.5) Hematocrit 49.7 % (36.0-47.0) Mean Corpuscular Volume 86 fL (79-100) Mean Corpuscular Hemoglobin 29 pg (25-35) Mean Corpuscular Hemoglobin Concent 33 g/dL (31-37) Red Cell Distribution Width 14.8 % (11.5-14.5) Platelet Count 97 x10^3/uL (140-400) Neutrophils (%) (Auto) 78 % (31-73) Lymphocytes (%) (Auto) 12 % (24-48) Monocytes (%) (Auto) 9 % (0-9) Eosinophils (%) (Auto) 1 % (0-3) Basophils (%) (Auto) 0 % (0-3) Neutrophils # (Auto) 5.8 x10^3uL (1.8-7.7) Lymphocytes # (Auto) 0.8 x10^3/uL (1.0-4.8) Monocytes # (Auto) 0.7 x10^3/uL (0.0-1.1) Eosinophils # (Auto) 0.1 x10^3/uL (0.0-0.7) Basophils # (Auto) 0.0 x10^3/uL (0.0-0.2) Sodium Level 141 mmol/L (136-145) Potassium Level 3.9 mmol/L (3.5-5.1) Chloride Level 101 mmol/L (98-107) Carbon Dioxide Level 31 mmol/L (21-32) Anion Gap 9 (6-14) Blood Urea Nitrogen 20 mg/dL (7-20) Creatinine 1.3 mg/dL (0.6-1.0) Estimated GFR (Cockcroft-Gault) 40.2 BUN/Creatinine Ratio 15 (6-20) Glucose Level 167 mg/dL (70-99) Lactic Acid Level 1.7 mmol/L (0.4-2.0) Calcium Level 8.8 mg/dL (8.5-10.1) Magnesium Level 1.8 mg/dL (1.8-2.4) Total Bilirubin 1.4 mg/dL (0.2-1.0) Aspartate Amino Transf (AST/SGOT) 25 U/L (15-37) Alanine Aminotransferase (ALT/SGPT) 26 U/L (14-59) Alkaline Phosphatase 78 U/L (46-116) Troponin I Quantitative 0.085 ng/mL (0.000-0.055) 0.063 ng/mL (0.000-0.055) KD-Kbo-Q-Type Natriuretic Peptide 890 pg/mL (0-124) Total Protein 7.4 g/dL (6.4-8.2) Albumin 3.4 g/dL (3.4-5.0) Albumin/Globulin Ratio 0.9 (1.0-1.7) Triglycerides Level 144 mg/dL (0-150) Cholesterol Level 252 mg/dL (0-200) LDL Cholesterol, Calculated 177 mg/dL (0-100) VLDL Cholesterol, Calculated 29 mg/dL (0-40) Non-HDL Cholesterol Calculated 206 mg/dL (0-129) HDL Cholesterol 46 mg/dL (40-60) Cholesterol/HDL Ratio 5.5 Thyroid Stimulating Hormone (TSH) 1.079 uIU/mL (0.358-3.74) Urine Collection Type Unknown Urine Color [place] Urine Clarity Clear Urine pH 6.0 Urine Specific [place] >=1.030 Urine Protein >=300 mg/dL (NEG-TRACE) Urine Glucose (UA) Negative mg/dL (NEG) Urine Ketones (Stick) Negative mg/dL (NEG) Urine Blood Trace (NEG) Urine Nitrite Negative (NEG) Urine Bilirubin Negative (NEG) Urine Urobilinogen Dipstick 1.0 mg/dL (0.2 mg/dL) Urine Leukocyte Esterase Negative (NEG) Urine RBC Occ /HPF (0-2) Urine WBC Occ /HPF (0-4) Urine Squamous Epithelial Cells Many /LPF Urine Bacteria Few /HPF (0-FEW) Urine Hyaline Casts Few /HPF Urine Mucus Marked /LPF Test 10/25/18 17:00 10/25/18 19:00 10/25/18 20:56 10/26/18 04:20 Glucose (Fingerstick) 353 mg/dL (70-99) 293 mg/dL (70-99) Troponin I Quantitative 0.068 ng/mL (0.000-0.055) White Blood Count 5.4 x10^3/uL (4.0-11.0) Red Blood Count 5.43 x10^6/uL (3.50-5.40) Hemoglobin 15.9 g/dL (12.0-15.5) Hematocrit 46.9 % (36.0-47.0) Mean Corpuscular Volume 86 fL (79-100) Mean Corpuscular Hemoglobin 29 pg (25-35) Mean Corpuscular Hemoglobin Concent 34 g/dL (31-37) Red Cell Distribution Width 14.9 % (11.5-14.5) Platelet Count 102 x10^3/uL (140-400) Neutrophils (%) (Auto) 80 % (31-73) Lymphocytes (%) (Auto) 14 % (24-48) Monocytes (%) (Auto) 6 % (0-9) Eosinophils (%) (Auto) 0 % (0-3) Basophils (%) (Auto) 0 % (0-3) Neutrophils # (Auto) 4.3 x10^3uL (1.8-7.7) Lymphocytes # (Auto) 0.8 x10^3/uL (1.0-4.8) Monocytes # (Auto) 0.3 x10^3/uL (0.0-1.1) Eosinophils # (Auto) 0.0 x10^3/uL (0.0-0.7) Basophils # (Auto) 0.0 x10^3/uL (0.0-0.2) Sodium Level 142 mmol/L (136-145) Potassium Level 3.9 mmol/L (3.5-5.1) Chloride Level 102 mmol/L (98-107) Carbon Dioxide Level 29 mmol/L (21-32) Anion Gap 11 (6-14) Blood Urea Nitrogen 35 mg/dL (7-20) Creatinine 1.8 mg/dL (0.6-1.0) Estimated GFR (Cockcroft-Gault) 27.6 Glucose Level 186 mg/dL (70-99) Calcium Level 9.2 mg/dL (8.5-10.1) Test 10/26/18 07:12 Glucose (Fingerstick) 163 mg/dL (70-99) Medications Active Scripts Medications Dose Route/Sig Max Daily Dose Days Date Category Dose Instructions Vitamin D (Cholecalciferol (Vitamin D3)) 50,000 Unit Capsule 50,000 Unit PO WEEKLY 30 10/25/18 Rx Spiriva (Tiotropium [place]) 18 Mcg Cap.w.dev 1 Cap IH DAILY 10/25/18 Rx Claritin (Loratadine) 10 Mg Tablet 1 Tab PO DAILY 10/25/18 Rx Losartan Potassium 50 Mg Tablet 50 Mg PO DAILY 30 10/25/18 Rx Lasix (Furosemide) 20 Mg Tablet 1 Tab PO DAILY 10/25/18 Rx Atorvastatin Calcium 40 Mg Tablet 1 Tab PO DAILY 10/25/18 Rx Vitamin D2 (Ergocalciferol (Vitamin D2)) 50,000 Unit Capsule 1 Cap PO WEEKLY 10/25/18 Reported Proair Hfa (Albuterol Sulfate) 8.5 Gm Hfa.aer.ad 1 Puff INH QID PRN 10/25/18 Reported Januvia (Sitagliptin Phosphate) 50 Mg Tablet 1 Tab PO DAILY 10/25/18 Reported Metoprolol Tartrate 25 Mg Tablet 25 Mg PO BID 12/08/15 Reported Aspir 81 (Aspirin) 81 Mg Tablet.dr 1 Tab PO DAILY 12/08/15 Reported Antivert (Meclizine Hcl) 12.5 Mg Tablet 25 Mg PO PRN TID PRN 12/08/15 Rx Glipizide Er (Glipizide) 2.5 Mg Tab.er.24 4 Tab PO DAILY 12/06/15 Reported Gave this morning Take again tomorrow morning Gabapentin (Gabapentin) 100 Mg Capsule 100 Mg PO PRN Q8HRS PRN 12/06/15 Reported Not given on this admission Take as previously directed Metformin Hcl Er (Metformin Hcl) 500 Mg Tab.er.24h 2 Tab PO BID 12/06/15 Reported Gave this morning Take again tonight Impression . IMPRESSION: 1. Acute on chronic hypoxemic respiratory failure. 2. Acute nonspecific bronchitis. 3. Recent RSV exposure. 4. Significant wheezing, dyspnea secondary to above. Plan . HOME OK BY SPOKE WITH FAMILY HERIBERTO MENON MD Oct 26, 2018 08:48
[2018-10-26] MEDS ORDERED: CETIRIZINE HCL 10 MG TABLET. PO SCH (09:00)
[2018-10-26] MEDS ORDERED: FUROSEMIDE 20 MG TABLET PO SCH (09:00)
[2018-10-26] MEDS ORDERED: ASPIRIN ENTERIC COATED 81 MG TABLET.DR. PO SCH (09:00)
[2018-10-26] MEDS ORDERED: LINAGLIPTIN 5 MG TABLET PO SCH (09:00)
[2018-10-26] MEDS ORDERED: glipiZIDE ER 2.5 MG TAB.ER.24 PO SCH (09:00)
[2018-10-26] MEDS ORDERED: LOSARTAN POTASSIUM 50 MG TABLET. PO SCH ×2 (09:00)
[2018-10-26] MEDS ORDERED: NON FORMULARY ITEM (Tiotropium Bromide (Spiriva) 1 CAP) IH SCH (09:00)
[2018-10-26] MEDS: metFORMIN XR 500 MG TAB.ER.24H PO SCH (09:34)
[2018-10-26] MEDS: METOPROLOL TART IMMED RELEASE 25 MG TABLET. PO SCH (09:37)
[2018-10-26] MEDS: INSULIN LISPRO 300 UNITS/3 ML INSULN.PEN. SQ SCH ×2 (09:43→11:33)
--- NOTE | 2018-10-26 11:02 | CARD ---
MR#: [id number] Date of Study: 10/26/2018 Ordering Physician: BRITTANY NUÑEZ, Referring Physician: VIMAL MONAE Tech: Yulisa Roger RDCS APPROVED REPORT EXAM: Two-dimensional and M-mode echocardiogram with Doppler and color Doppler. Other Information Quality : GoodHR: 63bpm Rhythm : NSR INDICATION CAD 2D DIMENSIONS RVDd2.7 (2.9-3.5cm)Left Atrium(2D)3.9 (1.6-4.0cm) IVSd1.3 (0.7-1.1cm)Aortic Root(2D)3.1 (2.0-3.7cm) LVDd4.6 (3.9-5.9cm)LVOT Diameter2.3 (1.8-2.4cm) PWd0.9 (0.7-1.1cm)LVDs2.4 (2.5-4.0cm) FS (%) 47.8 %SV77.4 ml LVEF(%)79.3 (>50%) M-Mode DIMENSIONS Left Atrium(MM)3.90 (2.5-4.0cm)Aortic Root3.23 (2.2-3.7cm) Aortic Valve AoV Peak Ole.149.9cm/sAoV VTI32.3cm AO Peak GR.9.0mmHgLVOT Peak Ole.100.3cm/s AO Mean GR.5mmHgAVA (VMAX)2.67cm2 HERBERT (VTI)2.49fn9YS P 1/2 Kzzy405oh Mitral Valve MV E Iyqrbaah498.0cm/sMV E Peak Gr.8mmHg MV DECEL [id number] A Hwrcgnsp18.8cm/s MV E Mean Gr.2mmHgE/A Ratio2.1 MV A [id number] Pulmonary Valve PV Peak Iffejlsa737.2cm/s Tricuspid Valve TR P. Addxjkof731xm/sRAP [id number] TR Peak Gr.96jkGlILUA76isZe Pulmonary Vein S1 Jeahhrzr51.3cm/sD2 Robvkehi00.3cm/s LEFT VENTRICLE The left ventricle is normal size. Proximal septal thickening is noted. The left ventricle systolic f unction is hyperdynamic. The Ejection Fraction is >70%. There is normal LV segmental wall motion. Tra nsmitral Doppler flow pattern is Grade II-pseudonormal filling dynamics. RIGHT VENTRICLE The right ventricle is normal size. There is normal right ventricular wall thickness. The right ventr icular systolic function is normal. ATRIA The left atrium size is normal. The right atrium size is normal. The interatrial septum is intact wit h no evidence for an atrial septal defect or patent foramen ovale as noted on 2-D or Doppler imaging. AORTIC VALVE The aortic valve is calcified but opens well. The aortic valve is trileaflet. Doppler and Color Flow revealed mild aortic regurgitation. There is no significant aortic valvular stenosis. MITRAL VALVE There is systolic anterior motion of the mitral valve. There is no evidence of mitral valve prolapse. There is no mitral valve stenosis. Doppler and Color-flow revealed mild mitral regurgitation. TRICUSPID VALVE The tricuspid valve is normal in structure and function. Doppler and Color Flow revealed trace tricus pid regurgitation. There is moderate pulmonary hypertension. The PA pressure was estimated at 58 mmHg . There is no tricuspid valve prolapse or vegetation. There is no tricuspid valve stenosis. PULMONIC VALVE The pulmonary valve is normal in structure and function. Doppler and Color Flow revealed mild pulmoni c valvular regurgitation. There is no pulmonic valvular stenosis. GREAT VESSELS The aortic root is normal in size. The ascending aorta is normal in size. The IVC is normal in size a nd collapses >50% with inspiration. PERICARDIAL EFFUSION There is no evidence of significant pericardial effusion. Critical Notification Critical Value: No <Conclusion> The left ventricle systolic function is hyperdynamic. The Ejection Fraction is >70%. There is normal LV segmental wall motion. Transmitral Doppler flow pattern is Grade II-pseudonormal filling dynamics. Mild aortic regurgitation. Mild mitral regurgitation. Trace tricuspid regurgitation. There is moderate pulmonary hypertension. The PA pressure was estimated at 58 mmHg. There is no evidence of significant pericardial effusion. Signed by : Zheng Bryant, Electronically Approved : 10/26/2018 11:00:37
[2018-10-26 11:09] VITALS: BP 137/77
--- NOTE | 2018-10-26 13:31 | PDOC ---
BRITTANY NUÑEZ MIX MAKER 10/26/18 1331: CARDIO Progress Notes Date and Time Date of Service 10/26/2018 Time of Evaluation 1300 Subjective Subjective: No Chest Pain, No shortness of breath, No Palpitations, Other (SOA much better) Vitals Vitals Vital Signs Date Time Temp Pulse Resp B/P (MAP) Pulse Ox O2 Delivery O2 Flow Rate FiO2 10/26/18 11:18 98 Nasal Cannula 3.0 10/26/18 11:09 98.2 68 20 137/77 (97) 98.2 Weight Weight [ ] Input and Output Intake and Output Intake and Output 10/26/18 07:01 Intake Total 700 ml Output Total 150 ml Balance 550 ml Intake Oral 700 ml Output Urine Total 150 ml # Voids 1 Laboratory Labs Laboratory Tests Test 10/25/18 14:20 10/25/18 16:00 10/25/18 17:00 10/25/18 19:00 Urine Collection Type Unknown Urine Color Zena Urine Clarity Clear Urine pH 6.0 Urine Specific [place] >=1.030 Urine Protein >=300 mg/dL (NEG-TRACE) Urine Glucose (UA) Negative mg/dL (NEG) Urine Ketones (Stick) Negative mg/dL (NEG) Urine Blood Trace (NEG) Urine Nitrite Negative (NEG) Urine Bilirubin Negative (NEG) Urine Urobilinogen Dipstick 1.0 mg/dL (0.2 mg/dL) Urine Leukocyte Esterase Negative (NEG) Urine RBC Occ /HPF (0-2) Urine WBC Occ /HPF (0-4) Urine Squamous Epithelial Cells Many /LPF Urine Bacteria Few /HPF (0-FEW) Urine Hyaline Casts Few /HPF Urine Mucus Marked /LPF Troponin I Quantitative 0.063 ng/mL (0.000-0.055) 0.068 ng/mL (0.000-0.055) Glucose (Fingerstick) 353 mg/dL (70-99) Test 10/25/18 20:56 10/26/18 04:20 10/26/18 07:12 10/26/18 11:20 Glucose (Fingerstick) 293 mg/dL (70-99) 163 mg/dL (70-99) 148 mg/dL (70-99) White Blood Count 5.4 x10^3/uL (4.0-11.0) Red Blood Count 5.43 x10^6/uL (3.50-5.40) Hemoglobin 15.9 g/dL (12.0-15.5) Hematocrit 46.9 % (36.0-47.0) Mean Corpuscular Volume 86 fL (79-100) Mean Corpuscular Hemoglobin 29 pg (25-35) Mean Corpuscular Hemoglobin Concent 34 g/dL (31-37) Red Cell Distribution Width 14.9 % (11.5-14.5) Platelet Count 102 x10^3/uL (140-400) Neutrophils (%) (Auto) 80 % (31-73) Lymphocytes (%) (Auto) 14 % (24-48) Monocytes (%) (Auto) 6 % (0-9) Eosinophils (%) (Auto) 0 % (0-3) Basophils (%) (Auto) 0 % (0-3) Neutrophils # (Auto) 4.3 x10^3uL (1.8-7.7) Lymphocytes # (Auto) 0.8 x10^3/uL (1.0-4.8) Monocytes # (Auto) 0.3 x10^3/uL (0.0-1.1) Eosinophils # (Auto) 0.0 x10^3/uL (0.0-0.7) Basophils # (Auto) 0.0 x10^3/uL (0.0-0.2) Sodium Level 142 mmol/L (136-145) Potassium Level 3.9 mmol/L (3.5-5.1) Chloride Level 102 mmol/L (98-107) Carbon Dioxide Level 29 mmol/L (21-32) Anion Gap 11 (6-14) Blood Urea Nitrogen 35 mg/dL (7-20) Creatinine 1.8 mg/dL (0.6-1.0) Estimated GFR (Cockcroft-Gault) 27.6 Glucose Level 186 mg/dL (70-99) Calcium Level 9.2 mg/dL (8.5-10.1) Microbiology Micro Microbiology 10/25/18 Blood Culture - Preliminary, Resulted NO GROWTH AFTER 1 DAY Physical Exam HEENT: Neck Supple W Full Motion Chest: Symmetric LUNGS: Other (diminished basilar wheeze. ) Heart: S1S2, RRR (SR) Abdomen: Soft N/T Extremities: No Edema, No Calf Tenderness Neurology: alert, follow commands, other (language barrier) Assessment Assessment 1. AECOPD/moderate pulmonary HTN: recent RSV exposure. Noncompliant with her inhalers. SOA better. per pulmonary 2. Elevated troponin: peaked at 0.085, EKG SR no acute changes. Demand mediated due to hypoxia. EF >70% 3. Thrombocytopenia: possibly reactive. defer to PCP 4. HTN: controlled 5. HLP: not on goal 6. DM2/DPN 7. 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 Cr at 1.8 per PCP 8. CAD: past CABG, clinically stable. 9. Pleuritic CP: reproducible with cough 10. Mild valvular insufficiency: mild AI/MR Recommendations 1. Consider outpt stress test as an outpt and will defer to her route delivery service driver 2. Increase lipitor 3. Continue secondary prevention measures. 4. May follow up with route delivery service driver upon discharge. LUIS MIGUEL MEHTA MD 10/26/182039: CARDIO Progress Notes Assessment Assessment Patient seen and examined. Agree with BRASS BOBBIN WINDER's assessment and plan 2D echo showed normal LVF without any WMA Slight trop elevation probably demand ischemia We will consider ischemic evaluation as outpatient BRITTANY NUÑEZ APRN Oct 26, 2018 13:31 LUIS MIGUEL MEHTA MD Oct 26, 2018 20:40
--- NOTE | 2018-10-26 14:39 | PDOC3 ---
DATE OF ADMISSION Date of Admission 10/25/18 DATE OF DISCHARGE Discharge Date 10/26/18 PROBLEM LIST Problems: (1) COPD exacerbation (2) Elevated troponin CONSULTS Consults cardiology and pulmonary PROCEDURES Procedures none LABS Labs Laboratory Tests Test 10/25/18 16:00 10/25/18 17:00 10/25/18 19:00 10/25/18 20:56 Troponin I Quantitative 0.063 ng/mL (0.000-0.055) 0.068 ng/mL (0.000-0.055) Glucose (Fingerstick) 353 mg/dL (70-99) 293 mg/dL (70-99) Test 10/26/18 04:20 10/26/18 07:12 10/26/18 11:20 White Blood Count 5.4 x10^3/uL (4.0-11.0) Red Blood Count 5.43 x10^6/uL (3.50-5.40) Hemoglobin 15.9 g/dL (12.0-15.5) Hematocrit 46.9 % (36.0-47.0) Mean Corpuscular Volume 86 fL (79-100) Mean Corpuscular Hemoglobin 29 pg (25-35) Mean Corpuscular Hemoglobin Concent 34 g/dL (31-37) Red Cell Distribution Width 14.9 % (11.5-14.5) Platelet Count 102 x10^3/uL (140-400) Neutrophils (%) (Auto) 80 % (31-73) Lymphocytes (%) (Auto) 14 % (24-48) Monocytes (%) (Auto) 6 % (0-9) Eosinophils (%) (Auto) 0 % (0-3) Basophils (%) (Auto) 0 % (0-3) Neutrophils # (Auto) 4.3 x10^3uL (1.8-7.7) Lymphocytes # (Auto) 0.8 x10^3/uL (1.0-4.8) Monocytes # (Auto) 0.3 x10^3/uL (0.0-1.1) Eosinophils # (Auto) 0.0 x10^3/uL (0.0-0.7) Basophils # (Auto) 0.0 x10^3/uL (0.0-0.2) Sodium Level 142 mmol/L (136-145) Potassium Level 3.9 mmol/L (3.5-5.1) Chloride Level 102 mmol/L (98-107) Carbon Dioxide Level 29 mmol/L (21-32) Anion Gap 11 (6-14) Blood Urea Nitrogen 35 mg/dL (7-20) Creatinine 1.8 mg/dL (0.6-1.0) Estimated GFR (Cockcroft-Gault) 27.6 Glucose Level 186 mg/dL (70-99) Calcium Level 9.2 mg/dL (8.5-10.1) Glucose (Fingerstick) 163 mg/dL (70-99) 148 mg/dL (70-99) Microbiology 10/25/18 Blood Culture - Preliminary, Resulted NO GROWTH AFTER 1 DAY MEDICATIONS Medications Medications reviewed and reconciled for discharge. CHEIF COMPLAINT Cheif Complaint She was brought to office by her daughter for SOA and was found to be significantly hypoxic despite a neb treatment and sent to ER and subsequently admitted. She has had recent exposure to RSV. She has oxygen at home and uses it intermittently. In the ER her sats came up to 90 % on 2 liters of oxygen, she received Duoneb x 2 and IV solumedrol. Overnight she has improved but remains on O2. Her troponin was elevated initially which also contributed to her being hospitalized, she denied chest pain though PAST MEDICAL HISTORY PMH type 2 diabetes with DPN HTN COPD hypoxia allergic rhinitis AAA Prevnar given 05/28 PAST SURGICAL HISTORY PSH AAA dissection repair 10/2009 SOCIAL HISTORY SH never smoker, no drug use, , lives with and daughter, [place] FAMILY HISTORY FH parents , unknown cause, daughter healthy ALLERGIES Allergies Allergies Coded Allergies Type Severity Reaction Last Updated Verified No Known Drug Allergies 12/06/15 No MEDICATIONS Meds Medications reviewed. REVIEW OF SYSTEMS ROS A 14 point ROS was completed with the following noted as positive: see HPI Other systems reviewed and negative. PHYSICAL EXAM Subjective SOA Objective NAD, A&O HEENT: no acute findings other than mild nasal congestion Neck: supple, no adenopathy Lungs: end expiratory wheezes, good respiratory effort, non labored Heart: RRR, no murmur heard Chest: no tenderness Abdomen: soft and non tender, normal bowel sounds Ext: no C/C/E Skin: no rash, good turgor MS: good tone and strength Neuro: diminished sensation distal legs Vital Signs Vital Signs Date Time Temp Pulse Resp B/P (MAP) Pulse Ox O2 Delivery O2 Flow Rate FiO2 10/26/18 11:18 98 Nasal Cannula 3.0 10/26/18 11:09 98.2 68 20 137/77 (97) 98.2 Assessment Acute COPD exac, elevated troponin in a diabetic that has O2 at home, she has had recent RSV exposure [facility] Note She has improved dramatically overnight with neb treatments, O2 and solumedrol, her blood sugar has been controlled, she has been evaluated by PT and strength is adequate. She did have a slight rise in her creatinine overnight presumably from a dose of furosemide but is eating and drinking well now. Cardiology and Pulmonary have seen her in consultation and have found no further need for hospitalization and recommending discharge. She will be sent home on 12 day prednisone taper and Tyra Nixon FOLLOW UP F/U 1-2 weeks DISPOSITION Dispo home. hold Hayden Contreras MD Oct 26, 2018 14:39
[2018-10-26] MEDS ORDERED: BENZ100C PO (14:43)
[2018-10-26] MEDS ORDERED: PRED-220 PO (14:43)
--- NOTE | 2018-10-26 17:09 | NUR ---
Discharge Note: SUZANNE LOPEZ Discharge instructions and discharge home medications reviewed with Patient and a copy given. All questions have been answered and understanding verbalized. The following instructions and handouts were given: COPD, COPD exacerbation, Troponin Discontinued lines and drains: 20G R-hand removed. Catheter intact. Patient discharged to home with self-care via to private vehicle. Pt. son accepted discharge instuctions. Pt. dressed self and had a steady gait walking to and from to car.
[2018-10-26 19:15] LABS: HEMOGLOBIN A1C 8.3 % (4.8-5.6)
[2018-10-26] MEDS ORDERED: ATORVASTATIN CALCIUM 40 MG TABLET. PO SCH (21:00)
[2018-10-30] MEDS ORDERED: ERGOCALCIFEROL (VITAMIN D2) 50,000 UNIT CAPSULE. PO SCH (09:00)
[2018-11-01] MEDS ORDERED: ERGOCALCIFEROL (VITAMIN D2) 50,000 UNIT CAPSULE. PO SCH (09:00)
== END 2018-10-26 17:00 | disposition home or self-care (01) | DRG 189 ==
LOC: ER 09:27 → 2 SOUTH 12:25
PROVIDERS: ADMIT Family Medicine; ATTEND Family Medicine
DX: J96.21 Acute and chronic respiratory failure with hypoxia (principal); J44.1 Chronic obstructive pulmonary disease with (acute) exacerbation; N17.9 Acute kidney failure, unspecified; D69.6 Thrombocytopenia, unspecified; E11.22 Type 2 diabetes mellitus with diabetic chronic kidney disease; E78.5 Hyperlipidemia, unspecified; I12.9 Hypertensive chronic kidney disease with stage 1 through stage 4 chronic kidney disease, or unspecified chronic kidney disease; I25.10 Atherosclerotic heart disease of native coronary artery without angina pectoris; I27.20 Pulmonary hypertension, unspecified; G62.9 Polyneuropathy, unspecified; M19.90 Unspecified osteoarthritis, unspecified site; I34.0 Nonrheumatic mitral (valve) insufficiency; N18.3 Chronic kidney disease, stage 3 (moderate); Z20.828 Contact with and (suspected) exposure to other viral communicable diseases; Z86.011 Personal history of benign neoplasm of the brain; Z91.19 Patient's noncompliance with other medical treatment and regimen; Z95.1 Presence of aortocoronary bypass graft; Z95.5 Presence of coronary angioplasty implant and graft; Z99.81 Dependence on supplemental oxygen
CPT/HCPCS: 36415; 71045; 80048; 80053; 80061; 81001; 82962; 83036; 83605; 83735; 83880; 84443; 84484; 85025; 87040; 87804; 93005; 93306; 94640; 94760; 96374; J1815; J2930; J7613; J7620; 99285-25; G0378

== ENCOUNTER 2019-08-14 16:12 | Inpatient (IN) | payer MEDICAID, OTHER ==
[~2019-08-14] VITALS: Ht 149.9 cm; Wt 65.8 kg
[~2019-08-14 16:12] MED LIST changes: +ALBU2.5V8 INH; +ATOR40TA59 PO; +BENZ100C PO; +CHOL500050 PO; +ERGO500027 PO; +FURO-69 PO; +LORA10TA68 PO; +LOSA-73 PO; +METF500T11 PO; -METF500T9 PO; +PRED-220 PO; +SIMV40TA18 PO; -SIMV40TA3 PO; +SITA50TA PO; +TIOT18CA IH
--- NOTE | 2019-08-14 16:41 | PHYS DOC ---
Past Medical History Past Medical History: COPD, Diabetes-Type II, High Cholesterol, Hypertension Past Surgical History: Coronary Bypass Surgery, Other Additional Past Surgical Histo: Cardiac Stents - UNKNOWN NUMBER Alcohol Use: Rarely Drug Use: None Adult General Chief Complaint Chief Complaint: CHEST PAIN HPI HPI Patient is a 74 year old Female who presents with 3 days of right-sided chest pain it's a burning sensation. Patient states when she gets up and moves is worse. Patient states it does not radiate. Patient states she also has some shortness of air. Patient also states that she has dizziness and blurred vision especially when she stands up but not at this time. She states it comes and goes. She states that dizziness and the blurred vision has been going on for months. Patient does have history of vertigo. Patient rates her pain a 10 out of 10. Patient denies abdominal pain, nausea, vomiting, diarrhea, syncope, headache. Review of Systems Review of Systems Eyes: Blurred visual acuity, denies redness, or eye pain [] HENT: Denies nasal congestion or sore throat [] Respiratory: Denies cough. +shortness of breath [] Cardiovascular: Right sided burning chest pain Neurologic: Dizziness. Denies headache, focal weakness or sensory changes [] All other systems were reviewed and found to be within normal limits, except as documented in this note. Current Medications Current Medications Current Medications Medications (Trade) Dose Ordered [facility] Start Time Stop Time Status Last Admin Dose Admin Aspirin (Daly Aspirin) 325 mg 1X ONCE 08/14/19 16:45 08/14/19 16:46 DC 08/14/19 17:56 325 MG Clonidine HCl (Catapres) 0.1 mg 1X ONCE 08/14/19 17:00 08/14/19 17:54 DC Famotidine (Pepcid Vial) 20 mg 1X ONCE 08/14/19 16:45 08/14/19 16:46 DC 08/14/19 17:57 20 MG Allergies Allergies Allergies Coded Allergies Type Severity Reaction Last Updated Verified No Known Drug Allergies 12/06/15 No Physical Exam Physical Exam Constitutional: Well developed, well nourished, no acute distress, non-toxic appearance. [] HENT: Normocephalic, atraumatic, bilateral external ears normal, oropharynx moist, no oral exudates, nose normal. [] Eyes: PERRLA, EOMI, conjunctiva normal, no discharge. [] Neck: Normal range of motion, no tenderness, supple, no stridor. [] Cardiovascular:Heart rate regular rhythm, no murmur. Tenderness with palpation to right chest. [] Lungs & Thorax: Bilateral breath sounds clear to auscultation [] Abdomen: Bowel sounds normal, soft, no tenderness, no masses, no pulsatile masses. [] Skin: Warm, dry, no erythema, no rash. [] Back: No tenderness, no CVA tenderness. [] Extremities: No tenderness, no cyanosis, no clubbing, ROM intact, no edema. [] Neurologic: Alert and oriented X 3, normal motor function, normal sensory function, no focal deficits noted. [] Psychologic: Affect normal, judgement normal, mood normal. [] Current Patient Data Vital Signs Vital Signs Date Time Temp Pulse Resp B/P (MAP) Pulse Ox O2 Delivery O2 Flow Rate FiO2 08/14/19 16:21 97.3 58 16 222/88 (132) 96 Room Air 97.3 Lab Values Laboratory Tests Test 08/14/19 16:50 08/14/19 17:35 White Blood Count 7.6 x10^3/uL (4.0-11.0) Red Blood Count 5.28 x10^6/uL (3.50-5.40) Hemoglobin 15.2 g/dL (12.0-15.5) Hematocrit 45.2 % (36.0-47.0) Mean Corpuscular Volume 86 fL (79-100) Mean Corpuscular Hemoglobin 29 pg (25-35) Mean Corpuscular Hemoglobin Concent 34 g/dL (31-37) Red Cell Distribution Width 15.1 % (11.5-14.5) H Platelet Count 118 x10^3/uL (140-400) L Neutrophils (%) (Auto) 58 % (31-73) Lymphocytes (%) (Auto) 30 % (24-48) Monocytes (%) (Auto) 8 % (0-9) Eosinophils (%) (Auto) 3 % (0-3) Basophils (%) (Auto) 1 % (0-3) Neutrophils # (Auto) 4.4 x10^3/uL (1.8-7.7) Lymphocytes # (Auto) 2.3 x10^3/uL (1.0-4.8) Monocytes # (Auto) 0.6 x10^3/uL (0.0-1.1) Eosinophils # (Auto) 0.2 x10^3/uL (0.0-0.7) Basophils # (Auto) 0.1 x10^3/uL (0.0-0.2) Sodium Level 147 mmol/L (136-145) H Potassium Level 4.1 mmol/L (3.5-5.1) Chloride Level 106 mmol/L (98-107) Carbon Dioxide Level 29 mmol/L (21-32) Anion Gap 12 (6-14) Blood Urea Nitrogen 27 mg/dL (7-20) H Creatinine 1.4 mg/dL (0.6-1.0) H Estimated GFR (Cockcroft-Gault) 36.8 BUN/Creatinine Ratio 19 (6-20) Glucose Level 156 mg/dL (70-99) H Calcium Level 9.3 mg/dL (8.5-10.1) Total Bilirubin 1.1 mg/dL (0.2-1.0) H Aspartate Amino Transferase (AST) 23 U/L (15-37) Alanine Aminotransferase (ALT) 24 U/L (14-59) Alkaline Phosphatase 69 U/L (46-116) Troponin I Quantitative 0.025 ng/mL (0.000-0.055) Total Protein 7.4 g/dL (6.4-8.2) Albumin 3.6 g/dL (3.4-5.0) Albumin/Globulin Ratio 0.9 (1.0-1.7) L Laboratory Tests 08/14/19 16:50 Laboratory Tests 08/14/19 17:35 EKG EKG Sinus Rhythm and no STEMI[] Interpretation Time: [address] Watson Radiology/Procedures Radiology/Procedures [] Impressions: [facility] [address] [place], [place] [id number] IMAGING REPORT Signed PATIENT: TRACEY LOPEZ ACCOUNT: [id number] : 1945 LOCATION: ER AGE: 74 SEX: F EXAM STATUS: REG ER ORD. PHYSICIAN: BAFUS,IVETTE M RN FIELD CASE MANAGER REASON: DIZZINESS PROCEDURE: CT HEAD WO CONTRAST CT HEAD WO CONTRAST History: Dizziness Comparison: Brain MRI December 07, [address] December 06, 2015 Technique: Noncontrast CT imaging was performed of the head. Exposure: One or more of the following individualized dose reduction techniques were utilized for this examination: 1. Automated exposure control 2. Adjustment of the mA and/or kV according to patient size 3. Use of iterative reconstruction technique. Findings: No acute intracranial hemorrhage. No hydrocephalus. Right paramedian frontal region partially calcified extra-axial mass measures 2.9 x 2.2 cm. Additional smaller calcified left superior frontal parietal extra-axial lesion, unchanged, favor meningioma. Foci of decreased attenuation within the hemispheric white matter, most often due to moderate sequela chronic microvascular ischemia. Mild brain parenchymal volume loss., similar compared to prior. Imaged orbits are unremarkable. Minimal scattered paranasal sinus mucosal thickening. Mastoid air cells are clear. No acute calvarial fracture. Left frontal scalp cutaneous lesion, increased compared to prior measures 0.7 cm compared to 0.4 cm. Impression: 1. No acute intracranial abnormality. 2. Unchanged right paramedian frontal extra-axial partially calcified mass, favor meningioma. 3. Moderate sequela chronic microvascular ischemia. Electronically signed by: Randy Smalls DO (08/14/2019 5:30 PM) [id number] DICTATED and SIGNED BY: RANDY SMALLS DO DATE: 08/14/19 173 [facility] [address] [place] [address] IMAGING REPORT Signed PATIENT: TRACEY LOPEZ ACCOUNT: [id number] : 1945 LOCATION: ER AGE: 74 SEX: F EXAM STATUS: REG ER ORD. PHYSICIAN: IVETTE STANLEY APRN REASON: RIGHT SIDED CHEST PAIN X3 DAYS PROCEDURE: PORTABLE CHEST 1V PORTABLE CHEST 1V History: Right-sided chest pain. Comparison: October 25, 2018 Findings: Cardiomegaly, unchanged. Prior median sternotomy. No consolidation or pleural effusion. No pneumothorax. Impression: 1. No acute cardiopulmonary process. 2. Cardiomegaly, unchanged. Electronically signed by: Randy Smalls DO (08/14/2019 5:18 PM) [facility]-HCA6 DICTATED and SIGNED BY: RANDY SMALLS DO DATE: 08/14/191717 Course & Med Decision Making Course & Med Decision Making Patient states she took her hypertension medication today but her blood pressure is 222/88. She is alert and oriented. Speaks in full clear sentences. Ambulatory with a steady gait. Moves all extremities equally and has equal strengths. Denies any numbness or tingling. Patient does have some neuropathy in her hands and feet due to diabetes. Lungs are clear to auscultation in all lobes. Skin is pink warm and dry. Patient is eating and drinking without location. Abdomen is soft and nontender. When I palpate the chest patient states it does hurt worse right shoulder her chest on the right side. PERRLA. Patient has a history of crack cholesterol, hypertension, diabetes, COPD, neuropathy, vertigo. No extremity edema. She is sinus rhythm and no STEMI. 1749: Blood pressure is 158/ 64. The nurse had not given the Clonidine yet and I have told RN to hold the Clonidine as the blood pressure has come down on its own. 1834: Has spoken to Dr. castillo for admission. Dragon Disclaimer Alexon Disclaimer This electronic medical record was generated, in whole or in part, using a voice recognition dictation system. The HEART Score for CP Pts HEART Score for Chest Pain: HEART Score for Chest Pain Response (Comments) Value History Moderately Suspicious 1 ECG Nonspecific Repolarizatio 1 Age > 65 2 Risk Factors >3 Risk Factors or Hx CAD 2 Troponin < Normal Limit 0 Total 6 Risk Factors: Risk Factors: DM, Current or recent (<one month) smoker, HTN, HLP, family history of CAD, obesity. Risk Scores: Score 0 - 3: 2.5% MACE over next 6 weeks - Discharge Home Score 4 - 6: 20.3% MACE over next 6 weeks - Admit for Clinical Observation Score 7 - 10: 72.7% MACE over next 6 weeks - Early Invasive Strategies NIHSS Stroke Scale NIH Stroke Scale: NIH Stroke Scale Response (Comments) Value Level of Consciousness: 0 Alert/Responsive 0 LOC Questions: 0 Answers both correctly 0 LOC Commands: 0 Performs both tasks 0 Best Gaze: 0 Normal 0 Visual: 0 No visual loss 0 Facial Palsy: 0 Normal, symmetrical 0 Motor - Left Arm 0 No drift 0 Motor - Right Arm 0 No drift 0 Motor - Left Leg 0 No drift 0 Motor: Right Leg 0 No drift 0 Limb Ataxia: 0 Absent 0 Sensory: 0 No loss 0 Best Language: 0 Normal 0 Dysathria: 0 Normal 0 Extinction and Inattention: 0 Normal 0 Total 0 Departure Departure Impression: Primary Impression: Chest pain Disposition: 09 ADMITTED INPATIENT Admitting Physician: ISAIAS Condition: STABLE Referrals: VIMAL MONAE MD (PCP) Problem Qualifiers Primary Impression: Chest pain Chest pain type: unspecified Qualified Codes: R07.9 - Chest pain, unspecified IVETTE STANLEY RN FIELD CASE MANAGER Aug 14, 2019 16:41
[2019-08-14] MEDS ORDERED: FAMOTIDINE 20 MG/2 ML VIAL IVP ONE (16:45)
[2019-08-14] MEDS ORDERED: ASPIRIN 325 MG TABLET PO ONE (16:45)
[2019-08-14] MEDS ORDERED: cloNIDine HCL 0.1 MG TABLET PO ONE (17:00)
[2019-08-14 17:06] LABS: BASO # 0.1 x10^3/uL (0.0-0.2); BASO % 1 % (0-3); EOS # 0.2 x10^3/uL (0.0-0.7); EOS % 3 % (0-3); HEMATOCRIT 45.2 % (36.0-47.0); HEMOGLOBIN 15.2 g/dL (12.0-15.5); LYMPH # 2.3 x10^3/uL (1.0-4.8); LYMPH % 30 % (24-48); MEAN CORPUSCULAR HEMOGLOBIN 29 pg (25-35); MEAN CORPUSCULAR HGB CONC 34 g/dL (31-37); MEAN CORPUSCULAR VOLUME 86 fL (79-100); MONO # 0.6 x10^3/uL (0.0-1.1); MONO % 8 % (0-9); NEUT # 4.4 x10^3/uL (1.8-7.7); NEUT % 58 % (31-73); PLATELET COUNT 118 x10^3/uL (140-400); RED BLOOD COUNT 5.28 x10^6/uL (3.50-5.40); RED CELL DISTRIBUTION WIDTH 15.1 % (11.5-14.5); WHITE BLOOD COUNT 7.6 x10^3/uL (4.0-11.0)
--- NOTE | 2019-08-14 17:21 | RAD ---
PORTABLE CHEST 1V History: Right-sided chest pain. Comparison: October 25, 2018 Findings: Cardiomegaly, unchanged. Prior median sternotomy. No consolidation or pleural effusion. No pneumothorax. Impression: 1. No acute cardiopulmonary process. 2. Cardiomegaly, unchanged. Electronically signed by: Randy Smalls DO (08/14/2019 5:18 PM) [id number]
--- NOTE | 2019-08-14 17:32 | RAD ---
CT HEAD WO CONTRAST History: Dizziness Comparison: Brain MRI December 07, [address] December 06, 2015 Technique: Noncontrast CT imaging was performed of the head. Exposure: One or more of the following individualized dose reduction techniques were utilized for this examination: 1. Automated exposure control 2. Adjustment of the mA and/or kV according to patient size 3. Use of iterative reconstruction technique. Findings: No acute intracranial hemorrhage. No hydrocephalus. Right paramedian frontal region partially calcified extra-axial mass measures 2.9 x 2.2 cm. Additional smaller calcified left superior frontal parietal extra-axial lesion, unchanged, favor meningioma. Foci of decreased attenuation within the hemispheric white matter, most often due to moderate sequela chronic microvascular ischemia. Mild brain parenchymal volume loss., similar compared to prior. Imaged orbits are unremarkable. Minimal scattered paranasal sinus mucosal thickening. Mastoid air cells are clear. No acute calvarial fracture. Left frontal scalp cutaneous lesion, increased compared to prior measures 0.7 cm compared to 0.4 cm. Impression: 1. No acute intracranial abnormality. 2. Unchanged right paramedian frontal extra-axial partially calcified mass, favor meningioma. 3. Moderate sequela chronic microvascular ischemia. Electronically signed by: Randy Smalls DO (08/14/2019 5:30 PM) [facility]-[id number]
[2019-08-14 17:59] LABS: CALCIUM 9.3 mg/dL (8.5-10.1); CREATININE 1.4 mg/dL (0.6-1.0); GFR 36.8; POTASSIUM 4.1 mmol/L (3.5-5.1)
[2019-08-14 18:06] LABS: ALBUMIN 3.6 g/dL (3.4-5.0); ALBUMIN/GLOBULIN RATIO 0.9 (1.0-1.7); TOTAL BILIRUBIN 1.1 mg/dL (0.2-1.0); TOTAL PROTEIN 7.4 g/dL (6.4-8.2)
[2019-08-14] MEDS ORDERED: fentaNYL PF VIAL 100 MCG/2 ML VIAL IV PRN (18:45)
[2019-08-14] MEDS ORDERED: ONDANSETRON PF 4 MG/2 ML VIAL. IV PRN (18:45)
[2019-08-14 20:05] VITALS: BP 225/94
[2019-08-14] MEDS ORDERED: GABAPENTIN 100 MG CAPSULE. PO PRN (20:15)
[2019-08-14] MEDS ORDERED: amLODIPine BESYLATE 5 MG TABLET PO ONE (20:15)
[2019-08-14] MEDS ORDERED: METOPROLOL TARTRATE 5 MG/5 ML VIAL. IVP PRN (20:15)
[2019-08-14] MEDS ORDERED: ALBUTEROL SULFATE 2.5 MG/3 ML NEBU. INH PRN (20:15)
[2019-08-14] MEDS ORDERED: hydrALAZINE 20 MG/ML VIAL. IVP PRN (20:15)
[2019-08-14] MEDS ORDERED: DEXTROSE 50% 25 GM / 50ML DISP.SYRIN. IV PRN (20:15)
[2019-08-14] MEDS: BENZONATATE 100 MG CAPSULE. PO SCH (20:31)
[2019-08-14] MEDS: METOPROLOL TART IMMED RELEASE 25 MG TABLET. PO SCH (20:31)
--- NOTE | 2019-08-14 20:32 | PDOC1 ---
History and Physical Date of Admission Date of Admission DATE: 08/14/19 TIME: 20:26 Source Source: Chart review, Patient History of Present Illness History of Present Illness Ms. Bryan is a 74 year old Female admit [facility] intermittent chest pain, currently improved, she has had 3 days of right-sided chest pain it's a burning sensation. about a week ago, she had upper back pain that her family tried to treat with massage and cupping that hasnt much improved her symptoms. Patient states when she gets up and moves is worse. Patient states it does not radiate. She was in the ER earlier in an uncomfortable chair for a long time as her was being admitted, Also has vertigo and complains of dizziness and blurred vision especially when she stands up but not at this time. painwas 07/20 in ER,but now resolved. I admitted her about 2 hours ago for abd pain Past Medical History Cardiovascular: CAD, HTN, Hyperlipidemia, Other CENTRAL NERVOUS SYSTEM: Periperal neuropathy, Vertigo, Other GI: No pertinent hx Musculoskeletal: Osteoarthritis Infectious disease: No pertinent hx Renal/: Chronic renal insuff Endocrine: Diabetes Past Surgical History Past Surgical History: CABG, Other Family History Family History: No Significant Social History Smoke: Quit (many yrs ago) ALCOHOL: none Drugs: None Current Problem List Problem List Problems Medical Problems: (1) Chest pain Status: Acute Current Medications Current Medications Current Medications Aspirin (Daly Aspirin) 325 mg 1X ONCE PO Last administered on 08/14/19at 17:56; Start 08/14/19 at 16:45; Stop 08/14/19 at 16:46; Status DC Famotidine (Pepcid Vial) 20 mg 1X ONCE IVP Last administered on 08/14/19at 17:57; Start 08/14/19 at 16:45; Stop 08/14/19 at 16:46; Status DC Clonidine HCl (Catapres) 0.1 mg 1X ONCE PO ; Start 08/14/19 at 17:00; Stop 08/14/19 at 17:54; Status DC Ondansetron HCl (Zofran) 4 mg PRN Q8HRS PRN IV NAUSEA/VOMITING; Start 08/14/19 at 18:45; Stop 08/15/19 at 18:44 Fentanyl Citrate (Fentanyl 2ml Vial) 50 mcg PRN Q1HR PRN IV PAIN; Start 08/14/19 at 18:45; Stop 08/15/19 at 18:44 Amlodipine Besylate (Norvasc) 5 mg 1X ONCE PO ; Start 08/14/19 at 20:15; Stop 08/14/19 at 20:16 Amlodipine Besylate (Norvasc) 5 mg DAILY PO ; Start 08/15/19 at 09:00 Albuterol Sulfate (Ventolin Neb Soln) 2.5 mg QID PRN INH SHORTNESS OF BREATH; Start 08/14/19 at 20:15; Status UNV Aspirin (Ecotrin) 81 mg DAILY PO ; Start 08/15/19 at 09:00; Status UNV Atorvastatin Calcium (Lipitor) 40 mg DAILY PO ; Start 08/15/19 at 09:00; Status UNV Benzonatate (Tessalon Perle) 100 mg TID PO ; Start 08/14/19 at 21:00; Status UNV Gabapentin (Neurontin) 100 mg PRN Q8HRS PRN PO PAIN; Start 08/14/19 at 20:15; Status UNV Losartan Potassium (Cozaar) 50 mg DAILY PO ; Start 08/15/19 at 09:00; Status UNV Metoprolol Tartrate (Lopressor) 50 mg BID PO ; Start 08/14/19 at 21:00; Status UNV Prednisone (Prednisone) 10 mg DAILY PO ; Start 08/15/19 at 09:00; Status UNV Non-Formulary Medication (Loratadine (Claritin)) 1 tab DAILY PO ; Start 08/15/19 at 09:00; Status UNV Non-Formulary Medication (Sitagliptin Phosphate (Januvia)) 1 tab DAILY PO ; Start 08/15/19 at 09:00; Status UNV Non-Formulary Medication (Tiotropium [place] (Spiriva)) 1 cap DAILY IH ; Start 08/15/19 at 09:00; Status UNV Metoprolol Tartrate (Lopressor Vial) 5 mg PRN Q6HRS PRN IVP HYPERTENSION; Start 08/14/19 at 20:15; Status UNV Active Scripts Active Prednisone (Prednisone) 10 Mg Tablet 10 Mg PO UD Take 5 tablets by mouth daily for 2 days, then take 4 tablets by mouth daily for 2 days, then take 3 tablets by mouth daily for 2 days, then take 2 tablets by mouth daily for 2 days, then take 1 tablets by mouth daily for 2 days, then stop. Tessalon Perle (Benzonatate) 100 Mg Capsule 1 Cap PO TID Spiriva (Tiotropium [place]) 18 Mcg Cap.w.dev 1 Cap IH DAILY Claritin (Loratadine) 10 Mg Tablet 1 Tab PO DAILY Losartan Potassium 50 Mg Tablet 50 Mg PO DAILY 30 Days Atorvastatin Calcium 40 Mg Tablet 1 Tab PO DAILY Reported Proair Hfa (Albuterol Sulfate) 8.5 Gm Hfa.aer.ad 1 Puff INH QID PRN Januvia (Sitagliptin Phosphate) 50 Mg Tablet 1 Tab PO DAILY Metoprolol Tartrate 25 Mg Tablet 25 Mg PO BID Aspir 81 (Aspirin) 81 Mg Tablet.dr 1 Tab PO DAILY Glipizide Er (Glipizide) 2.5 Mg Tab.er.24 4 Tab PO DAILY Gave this morning Take again tomorrow morning Gabapentin (Gabapentin) 100 Mg Capsule 100 Mg PO PRN Q8HRS PRN Not given on this admission Take as previously directed Metformin Hcl Er (Metformin Hcl) 500 Mg Tab.er.24h 2 Tab PO BID Gave this morning Take again tonight Allergies Allergies: Coded Allergies: No Known Drug Allergies (Unverified , 12/06/15) ROS Review of System Patient denies abdominal pain, nausea, vomiting, diarrhea, syncope, headache. General: No: Chills, Night Sweats, Fatigue, Malaise, Appetite, Other PSYCHOLOGICAL ROS: No: Anxiety, Behavioral Disorder, Concentration difficultie, Decreased libido, Depression, Disorientation, Hallucinations, Hostility, Irri tablity, Memory difficulties, Mood Swings, Obsessive thoughts, Physical abuse, Sexual abuse, Sleep disturbances, Suicidal ideation, Other Eyes: No Blurry vision, No Decreased vision, No Double vision, No Dry eyes, No Excessive tearing, No Eye Pain, No Itchy Eyes, No Loss of vision, No Photophobia, No Scotomata, No Uses contacts, No Uses glasses, No Other HEENT: No: Heacaches, Visual Changes, Hearing change, Nasal congestion, Nasal discharge, Oral lesions, Sinus pain, Sore Throat, Epistaxis, Sneezing, Snoring, Tinnitus, Vertigo, Vocal changes, Other Respiratory: No: Cough, Hemoptysis, Orthopnea, Pleuritic Pain, Shortness of breath, SOB with excertion, Sputum Changes, Stridor, Tachypnea, Wheezing, Other Cardiovascular: No Chest Pain, No Palpitations, No Orthopnea, No Paroxysmal Noc. Dyspnea, No Edema, No Lt Headedness, No Other Gastrointestinal: No Nausea, No Vomiting, No Abdominal Pain, No Diarrhea, No Constipation, No Melena, No Hematochezia, No Other Genitourinary: No Dysuria, No Frequency, No Incontinence, No Hematuria, No Retention, No Discharge, No Urgency, No Pain, No Flank Pain, No Other, No , No , No , No , No , No , No Musculoskeletal: Yes Joint Stiffness, Yes Pain In: (back 1 week); No Gait Disturbance, No Joint Pain, No Joint Swelling, No Muscle Pain, No Muscular Weakness, No Swelling In:, No Other Neurological: No Behavorial Changes, No Bowel/Bladder ControlChng, No Confusion, No Dizziness, No Gait Disturbance, No Headaches, No Impaired Coord/balance, No Memory Loss, No Numbness/Tingling, No Seizures, No Speech Problems, No Tremors, No Visual Changes, No Weakness, No Other Skin: Yes Dry Skin; No Eczema, No Hair Changes, No Lumps, No Mole Changes, No Mottling, No Nail Changes, No Pruritus, No Rash, No Skin Lesion Changes, No Other, No Acne Physical Exam General: Alert, Oriented X3, Cooperative, No acute distress HEENT: Atraumatic, PERRLA, EOMI, Mucous membr. moist/pink Lungs: Clear to auscultation, Normal air movement Heart: S1S2, RRR, no thrills, no gallops Abdomen: Normal bowel sounds, Soft Rectal Exam: not examined Extremities: No clubbing, No edema Skin: No rashes, No significant lesion Neuro: Normal gait, Normal speech, Normal tone Psych/Mental Status: Mental status NL, Mood NL Vitals Vitals Vital Signs Date Time Temp Pulse Resp B/P (MAP) Pulse Ox O2 Delivery O2 Flow Rate FiO2 08/14/19 18:59 58 17 194/83 (120) 93 Room Air 08/14/19 16:21 97.3 97.3 Labs Labs Laboratory Tests Test 08/14/19 16:50 08/14/19 17:35 White Blood Count 7.6 x10^3/uL (4.0-11.0) Red Blood Count 5.28 x10^6/uL (3.50-5.40) Hemoglobin 15.2 g/dL (12.0-15.5) Hematocrit 45.2 % (36.0-47.0) Mean Corpuscular Volume 86 fL (79-100) Mean Corpuscular Hemoglobin 29 pg (25-35) Mean Corpuscular Hemoglobin Concent 34 g/dL (31-37) Red Cell Distribution Width 15.1 % (11.5-14.5) Platelet Count 118 x10^3/uL (140-400) Neutrophils (%) (Auto) 58 % (31-73) Lymphocytes (%) (Auto) 30 % (24-48) Monocytes (%) (Auto) 8 % (0-9) Eosinophils (%) (Auto) 3 % (0-3) Basophils (%) (Auto) 1 % (0-3) Neutrophils # (Auto) 4.4 x10^3/uL (1.8-7.7) Lymphocytes # (Auto) 2.3 x10^3/uL (1.0-4.8) Monocytes # (Auto) 0.6 x10^3/uL (0.0-1.1) Eosinophils # (Auto) 0.2 x10^3/uL (0.0-0.7) Basophils # (Auto) 0.1 x10^3/uL (0.0-0.2) Sodium Level 147 mmol/L (136-145) Potassium Level 4.1 mmol/L (3.5-5.1) Chloride Level 106 mmol/L (98-107) Carbon Dioxide Level 29 mmol/L (21-32) Anion Gap 12 (6-14) Blood Urea Nitrogen 27 mg/dL (7-20) Creatinine 1.4 mg/dL (0.6-1.0) Estimated GFR (Cockcroft-Gault) 36.8 BUN/Creatinine Ratio 19 (6-20) Glucose Level 156 mg/dL (70-99) Calcium Level 9.3 mg/dL (8.5-10.1) Total Bilirubin 1.1 mg/dL (0.2-1.0) Aspartate Amino Transf (AST/SGOT) 23 U/L (15-37) Alanine Aminotransferase (ALT/SGPT) 24 U/L (14-59) Alkaline Phosphatase 69 U/L (46-116) Troponin I Quantitative 0.025 ng/mL (0.000-0.055) Total Protein 7.4 g/dL (6.4-8.2) Albumin 3.6 g/dL (3.4-5.0) Albumin/Globulin Ratio 0.9 (1.0-1.7) Laboratory Tests Test 08/14/19 16:50 08/14/19 17:35 White Blood Count 7.6 x10^3/uL (4.0-11.0) Red Blood Count 5.28 x10^6/uL (3.50-5.40) Hemoglobin 15.2 g/dL (12.0-15.5) Hematocrit 45.2 % (36.0-47.0) Mean Corpuscular Volume 86 fL (79-100) Mean Corpuscular Hemoglobin 29 pg (25-35) Mean Corpuscular Hemoglobin Concent 34 g/dL (31-37) Red Cell Distribution Width 15.1 % (11.5-14.5) Platelet Count 118 x10^3/uL (140-400) Neutrophils (%) (Auto) 58 % (31-73) Lymphocytes (%) (Auto) 30 % (24-48) Monocytes (%) (Auto) 8 % (0-9) Eosinophils (%) (Auto) 3 % (0-3) Basophils (%) (Auto) 1 % (0-3) Neutrophils # (Auto) 4.4 x10^3/uL (1.8-7.7) Lymphocytes # (Auto) 2.3 x10^3/uL (1.0-4.8) Monocytes # (Auto) 0.6 x10^3/uL (0.0-1.1) Eosinophils # (Auto) 0.2 x10^3/uL (0.0-0.7) Basophils # (Auto) 0.1 x10^3/uL (0.0-0.2) Sodium Level 147 mmol/L (136-145) Potassium Level 4.1 mmol/L (3.5-5.1) Chloride Level 106 mmol/L (98-107) Carbon Dioxide Level 29 mmol/L (21-32) Anion Gap 12 (6-14) Blood Urea Nitrogen 27 mg/dL (7-20) Creatinine 1.4 mg/dL (0.6-1.0) Estimated GFR (Cockcroft-Gault) 36.8 BUN/Creatinine Ratio 19 (6-20) Glucose Level 156 mg/dL (70-99) Calcium Level 9.3 mg/dL (8.5-10.1) Total Bilirubin 1.1 mg/dL (0.2-1.0) Aspartate Amino Transf (AST/SGOT) 23 U/L (15-37) Alanine Aminotransferase (ALT/SGPT) 24 U/L (14-59) Alkaline Phosphatase 69 U/L (46-116) Troponin I Quantitative 0.025 ng/mL (0.000-0.055) Total Protein 7.4 g/dL (6.4-8.2) Albumin 3.6 g/dL (3.4-5.0) Albumin/Globulin Ratio 0.9 (1.0-1.7) VTE Prophylaxis Ordered VTE Prophylaxis Devices: No VTE Pharmacological Prophylaxi: Yes Assessment/Plan Assessment/Plan intermittent chest pain and back pain for a week currently no pain accelerated malignant hypertension, add norvasc, PRN labetalol if SBP > 200 acute on chronic renal failure, try to hydrate, eGFR 36 Dm2, add SSI, hold metformin for renal fxn r.o ACS echo may need CT angio, but renal function poor, try to get BP down, if cr better may CT angio, also no current pain JUAN VELA MD Aug 14, 2019 20:32
[2019-08-14] MEDS ORDERED: ATORVASTATIN CALCIUM 40 MG TABLET. PO SCH (21:00)
[2019-08-14 23:00] VITALS: BP 247/97
[2019-08-15 00:42] VITALS: BP 144/75
[2019-08-15 03:10] VITALS: BP 151/75
--- NOTE | 2019-08-15 04:36 | NUR ---
Patient arrived at 2000 via wheelchair and escorted by family. Patient only speaks Raúl and family translated. Orders verified and reviewed with Dr. Whitehead.
[2019-08-15 04:42] LABS: BASO % 1 % (0-3); EOS # 0.2 x10^3/uL (0.0-0.7); EOS % 4 % (0-3); HEMOGLOBIN 14.6 g/dL (12.0-15.5); LYMPH # 1.8 x10^3/uL (1.0-4.8); LYMPH % 33 % (24-48); MEAN CORPUSCULAR HEMOGLOBIN 28 pg (25-35); MEAN CORPUSCULAR HGB CONC 33 g/dL (31-37); MEAN CORPUSCULAR VOLUME 85 fL (79-100); MONO # 0.5 x10^3/uL (0.0-1.1); MONO % 9 % (0-9); NEUT % 54 % (31-73); PLATELET COUNT 101 x10^3/uL (140-400); RED BLOOD COUNT 5.19 x10^6/uL (3.50-5.40); RED CELL DISTRIBUTION WIDTH 14.5 % (11.5-14.5); WHITE BLOOD COUNT 5.5 x10^3/uL (4.0-11.0)
[2019-08-15 05:12] LABS: ALBUMIN 3.5 g/dL (3.4-5.0); ALBUMIN/GLOBULIN RATIO 0.9 (1.0-1.7); CREATININE 1.1 mg/dL (0.6-1.0); GFR 48.6; POTASSIUM 3.4 mmol/L (3.5-5.1); TOTAL BILIRUBIN 1.3 mg/dL (0.2-1.0); TOTAL PROTEIN 7.2 g/dL (6.4-8.2)
[2019-08-15 07:00] VITALS: BP 123/66
--- NOTE | 2019-08-15 07:28 | EKG ---
[facility] [address] [place] [address] Test Date: 2019-08-14 Test Time: 16:27:48 Pat Name: TRACEY LOPEZ Department: Room: Gender: F Advanced Practice Psychiatric Nurse: : 1945 Requested By: IVETTE STANLEY Order Number: [id number] Reading MD: Measurements Intervals [place] Rate: 65 P: -21 SD: 146 QRS: -5 QRSD: 92 T: 115 QT: 446 QTc: 469 Interpretive Statements SINUS RHYTHM LEFTWARD AXIS ST & T ABNORMALITY, CONSIDER HIGH LATERAL ISCHEMIA OR LEFT VENTRICULAR STRAIN ABNORMAL ECG RI6.01 No previous ECG available for comparison
[2019-08-15] MEDS: INSULIN LISPRO 300 UNITS/3 ML VIAL. SQ SCH ×2 (08:00→12:00)
[2019-08-15] MEDS: IPRATRPIUM/ALBUTEROL 0.5/2.5MG 3 ML NEBU. NEB SCH ×3 (08:09→15:15)
[2019-08-15] MEDS: BENZONATATE 100 MG CAPSULE. PO SCH ×2 (08:50→15:24)
[2019-08-15] MEDS: METOPROLOL TART IMMED RELEASE 25 MG TABLET. PO SCH ×2 (08:50→09:00)
[2019-08-15] MEDS ORDERED: amLODIPine BESYLATE 5 MG TABLET PO SCH (09:00)
[2019-08-15] MEDS ORDERED: LOSARTAN POTASSIUM 50 MG TABLET. PO SCH (09:00)
[2019-08-15] MEDS ORDERED: CETIRIZINE HCL 10 MG TABLET. PO SCH (09:00)
[2019-08-15] MEDS ORDERED: LINAGLIPTIN 5 MG TABLET PO SCH (09:00)
[2019-08-15] MEDS ORDERED: predniSONE 10 MG TABLET PO SCH (09:00)
[2019-08-15] MEDS ORDERED: ENOXAPARIN 30 MG/0.3 ML SYRINGE. SQ SCH (09:00)
[2019-08-15] MEDS ORDERED: ASPIRIN ENTERIC COATED 81 MG TABLET.DR. PO SCH (09:00)
--- NOTE | 2019-08-15 09:30 | CARD ---
MR#: [id number] Date of Study: 08/15/2019 Ordering Physician: JUAN VELA, Referring Physician: JUAN VELA, Tech: Yulisa Roger RDCS APPROVED REPORT EXAM: Two-dimensional and M-mode echocardiogram with Doppler and color Doppler. Other Information Quality : AverageHR: 60bpm Rhythm : NSR INDICATION Hypertension/HCVD 2D DIMENSIONS RVDd2.9 (2.9-3.5cm)Left Atrium(2D)4.5 (1.6-4.0cm) IVSd1.9 (0.7-1.1cm)Aortic Root(2D)3.0 (2.0-3.7cm) LVDd2.9 (3.9-5.9cm)LVOT Diameter1.8 (1.8-2.4cm) PWd1.3 (0.7-1.1cm)LVDs1.8 (2.5-4.0cm) FS (%) 38.8 %SV22.5 ml LVEF(%)70.9 (>50%) Aortic Valve AoV Peak Ole.137.3cm/sAoV VTI24.4cm AO Peak GR.7.5mmHgLVOT VTI 14.91cm AO Mean GR.4mmHgAVA (VTI)1.60cm2 Mitral Valve MV E Ymgjkpdo03.3cm/sMV DECEL [id number] MV A Hhdpgtyk03.6cm/sE/A Ratio1.5 MV A Eycrxmpd84ug TDI Lateral E' P. V6.64cm/sMedial E' P. V5.69cm/s E/Lateral E'12.8E/Medial E'15.0 Tricuspid Valve TR P. Reulubrv257zl/sRAP [id number] TR Peak Gr.24auWlDSLF02ifQl LEFT VENTRICLE The left ventricle cavity is small. There is moderate concentric left ventricular hypertrophy. The le ft ventricular systolic function is normal and the ejection fraction is within normal range. The Ejec tion Fraction is 65-70%. There is normal LV segmental wall motion. Transmitral Doppler flow pattern i s abnormal. RIGHT VENTRICLE The right ventricle is normal size. There is normal right ventricular wall thickness. The right ventr icular systolic function is normal. ATRIA The left atrium size is normal. The right atrium size is normal. The interatrial septum is intact wit h no evidence for an atrial septal defect or patent foramen ovale as noted on 2-D or Doppler imaging. AORTIC VALVE The aortic valve is mildly calcified. The aortic valve is trileaflet. Doppler and Color Flow revealed trace to mild aortic regurgitation. There is no significant aortic valvular stenosis. There is no ao rtic valvular vegetation. MITRAL VALVE The mitral valve is thickened but opens well. There is no evidence of mitral valve prolapse. There is no mitral valve stenosis. Doppler and Color-flow revealed trace mitral regurgitation. TRICUSPID VALVE The tricuspid valve is normal in structure and function. Doppler and Color Flow revealed trace to mil d tricuspid regurgitation. The PA pressure was estimated at 48 mmHg. There is no tricuspid valve prol apse or vegetation. There is no tricuspid valve stenosis. PULMONIC VALVE The pulmonic valve is not well visualized. GREAT VESSELS The aortic root is normal in size. The ascending aorta is normal in size. The IVC is dilated and mike apses >50% with inspiration. PERICARDIAL EFFUSION There is no evidence of significant pericardial effusion. Critical Notification Critical Value: No <Conclusion> The left ventricular systolic function is normal and the ejection fraction is within normal range. Th e Ejection Fraction is 65-70%. There is moderate concentric left ventricular hypertrophy. There is normal LV segmental wall motion. Doppler and Color Flow revealed trace to mild tricuspid regurgitation. The PA pressure was estimated at 48 mmHg. Signed by : Fran Juarez, Electronically Approved : 08/15/2019 09:30:24
[2019-08-15 11:00] VITALS: BP 164/76
--- NOTE | 2019-08-15 12:17 | PDOC2 ---
FABIENNE,ERICKJAMES HENSLEY 08/15/19 1217: CARDIAC CONSULT DATE OF CONSULT Date of Consult DATE: 08/15/19 TIME: 12:07 REASON FOR CONSULT Reason for Consult: Chest pain REFERRING PHYSICIAN Referring Physician: Altagracia Saenz APRN SOURCE Source: Chart review, Patient HISTORY OF PRESENT ILLNESS HISTORY OF PRESENT ILLNESS This is a 74 yo female who presented secondary to chest pain. Patient reports intermittent pain in her right chest for the past 3-4 days. Describes as burning//sharp in nature. Pain worsened with deep breathing and twisting her body a ceratin way. Non-radiating. Was dizzy and mild SOA while down in emergency room with her . He was admitted to the 5th floor. Blood pressure significantly elevated in ED. Does have a history of CAD s/p CABG. Previously followed with cardiology, but has not been seen in some time. Would like further testing and f/u to be scheduled her as it is more convenient for family. PAST MEDICAL HISTORY Past Medical History Cardiovascular: CAD, HTN, Hyperlipidemia, Other (aortic dissection with repair in 2009) CENTRAL NERVOUS SYSTEM: Periperal neuropathy, Vertigo, Other (meningioma) GI: No pertinent hx Musculoskeletal: Osteoarthritis Infectious disease: No pertinent hx ENT: No pertinent hx Renal/: Chronic renal insuff (?) Endocrine: Diabetes (2) Dermatology: No pertinent hx PAST SURGICAL HISTORY Past Surgical History: CABG (PCI/stent ) FAMILY HISTORY Family History: Other (noncontributory ) SOCIAL HISTORY Social History Smoke: No ALCOHOL: none Drugs: None Lives: with Family CURRENT MEDICATIONS CURRENT MEDICATIONS Current Medications Medications (Trade) Dose Ordered Sig/Pipo Route PRN Reason Start Time Stop Time Status Last Admin Dose Admin Aspirin (Daly Aspirin) 325 mg 1X ONCE PO 08/14/19 16:45 08/14/19 16:46 DC 08/14/19 17:56 Famotidine (Pepcid Vial) 20 mg 1X ONCE IVP 08/14/19 16:45 08/14/19 16:46 DC 08/14/19 17:57 Amlodipine Besylate (Norvasc) 5 mg 1X ONCE PO 08/14/19 20:15 08/14/19 20:16 DC 08/14/19 20:31 Amlodipine Besylate (Norvasc) 5 mg DAILY PO 08/15/19 09:00 08/15/19 08:49 Aspirin (Ecotrin) 81 mg DAILY PO 08/15/19 09:00 08/15/19 08:49 Atorvastatin Calcium (Lipitor) 40 mg QHS PO 08/14/19 21:00 08/14/19 20:30 Benzonatate (Tessalon Perle) 100 mg TID PO 08/14/19 21:00 08/15/19 08:50 Losartan Potassium (Cozaar) 50 mg DAILY PO 08/15/19 09:00 08/15/19 08:49 Metoprolol Tartrate (Lopressor) 50 mg BID PO 08/14/19 21:00 08/15/19 09:00 Prednisone (Prednisone) 10 mg DAILY PO 08/15/19 09:00 08/15/19 08:49 Cetirizine HCl (ZyrTEC) 10 mg DAILY PO 08/15/19 09:00 08/15/19 08:49 Linagliptin (Tradjenta) 5 mg DAILY PO 08/15/19 09:00 08/15/19 08:49 Albuterol/ Ipratropium (Duoneb) 3 ml RTQID NEB 08/15/19 08:00 08/15/19 11:24 Hydralazine HCl (Apresoline Inj) 10 mg PRN Q4HRS PRN IVP ELEVATED BP, SEE COMMENTS 08/14/19 20:15 08/14/19 23:14 Enoxaparin Sodium (Lovenox 30mg Syringe) 30 mg Q24H SQ 08/15/19 09:00 08/15/19 08:50 ALLERGIES ALLERGIES: Coded Allergies: No Known Drug Allergies (Unverified , 12/06/15) ROS Review of System 14 point ROS conducted with pertinent positives noted above in HPI PHYSICAL EXAM PHYSICAL EXAM General: Alert, Oriented X3, Cooperative, mild distress HEENT: Atraumatic, Mucous membr. moist/pink Lungs: CTA Heart: Regular rate (SR), Normal S1, Normal S2, No murmurs Abdomen: Soft, No tenderness Extremities: No cyanosis, No edema Skin: No breakdown, No significant lesion Neuro: Normal speech, Sensation intact Psych/Mental Status: Mental status NL, Mood NL MUSCULOSKELETAL: Osteoarthritic changes both hands VITALS/I&O VITALS/I&O: Vital Signs Date Time Temp Pulse Resp B/P (MAP) Pulse Ox O2 Delivery O2 Flow Rate FiO2 08/15/19 11:25 96 Nasal Cannula 2.0 08/15/19 09:00 65 08/15/19 07:00 98.7 18 123/66 (85) 98.7 I & O 08/14/19 08/14/19 08/15/19 15:00 23:00 07:00 Intake Total 0 ml Balance 0 ml LABS Lab: Laboratory Tests Test 08/14/19 16:50 08/14/19 17:35 08/14/19 20:58 08/14/19 21:30 White Blood Count 7.6 x10^3/uL (4.0-11.0) Red Blood Count 5.28 x10^6/uL (3.50-5.40) Hemoglobin 15.2 g/dL (12.0-15.5) Hematocrit 45.2 % (36.0-47.0) Mean Corpuscular Volume 86 fL (79-100) Mean Corpuscular Hemoglobin 29 pg (25-35) Mean Corpuscular Hemoglobin Concent 34 g/dL (31-37) Red Cell Distribution Width 15.1 % (11.5-14.5) H Platelet Count 118 x10^3/uL (140-400) L Neutrophils (%) (Auto) 58 % (31-73) Lymphocytes (%) (Auto) 30 % (24-48) Monocytes (%) (Auto) 8 % (0-9) Eosinophils (%) (Auto) 3 % (0-3) Basophils (%) (Auto) 1 % (0-3) Neutrophils # (Auto) 4.4 x10^3/uL (1.8-7.7) Lymphocytes # (Auto) 2.3 x10^3/uL (1.0-4.8) Monocytes # (Auto) 0.6 x10^3/uL (0.0-1.1) Eosinophils # (Auto) 0.2 x10^3/uL (0.0-0.7) Basophils # (Auto) 0.1 x10^3/uL (0.0-0.2) Sodium Level 147 mmol/L (136-145) H Potassium Level 4.1 mmol/L (3.5-5.1) Chloride Level 106 mmol/L (98-107) Carbon Dioxide Level 29 mmol/L (21-32) Anion Gap 12 (6-14) Blood Urea Nitrogen 27 mg/dL (7-20) H Creatinine 1.4 mg/dL (0.6-1.0) H Estimated GFR (Cockcroft-Gault) 36.8 BUN/Creatinine Ratio 19 (6-20) Glucose Level 156 mg/dL (70-99) H Calcium Level 9.3 mg/dL (8.5-10.1) Total Bilirubin 1.1 mg/dL (0.2-1.0) H Aspartate Amino Transferase (AST) 23 U/L (15-37) Alanine Aminotransferase (ALT) 24 U/L (14-59) Alkaline Phosphatase 69 U/L (46-116) Troponin I Quantitative 0.025 ng/mL (0.000-0.055) 0.028 ng/mL (0.000-0.055) Total Protein 7.4 g/dL (6.4-8.2) Albumin 3.6 g/dL (3.4-5.0) Albumin/Globulin Ratio 0.9 (1.0-1.7) L Glucose (Fingerstick) 208 mg/dL (70-99) H Test 08/15/19 03:20 08/15/19 08:04 White Blood Count 5.5 x10^3/uL (4.0-11.0) Red Blood Count 5.19 x10^6/uL (3.50-5.40) Hemoglobin 14.6 g/dL (12.0-15.5) Hematocrit 44.0 % (36.0-47.0) Mean Corpuscular Volume 85 fL (79-100) Mean Corpuscular Hemoglobin 28 pg (25-35) Mean Corpuscular Hemoglobin Concent 33 g/dL (31-37) Red Cell Distribution Width 14.5 % (11.5-14.5) Platelet Count 101 x10^3/uL (140-400) L Neutrophils (%) (Auto) 54 % (31-73) Lymphocytes (%) (Auto) 33 % (24-48) Monocytes (%) (Auto) 9 % (0-9) Eosinophils (%) (Auto) 4 % (0-3) H Basophils (%) (Auto) 1 % (0-3) Neutrophils # (Auto) 3.0 x10^3/uL (1.8-7.7) Lymphocytes # (Auto) 1.8 x10^3/uL (1.0-4.8) Monocytes # (Auto) 0.5 x10^3/uL (0.0-1.1) Eosinophils # (Auto) 0.2 x10^3/uL (0.0-0.7) Basophils # (Auto) 0.0 x10^3/uL (0.0-0.2) Sodium Level 145 mmol/L (136-145) Potassium Level 3.4 mmol/L (3.5-5.1) L Chloride Level 105 mmol/L (98-107) Carbon Dioxide Level 32 mmol/L (21-32) Anion Gap 8 (6-14) Blood Urea Nitrogen 20 mg/dL (7-20) Creatinine 1.1 mg/dL (0.6-1.0) H Estimated GFR (Cockcroft-Gault) 48.6 BUN/Creatinine Ratio 18 (6-20) Glucose Level 173 mg/dL (70-99) H Calcium Level 9.0 mg/dL (8.5-10.1) Total Bilirubin 1.3 mg/dL (0.2-1.0) H Aspartate Amino Transferase (AST) 21 U/L (15-37) Alanine Aminotransferase (ALT) 21 U/L (14-59) Alkaline Phosphatase 70 U/L (46-116) Total Protein 7.2 g/dL (6.4-8.2) Albumin 3.5 g/dL (3.4-5.0) Albumin/Globulin Ratio 0.9 (1.0-1.7) L Glucose (Fingerstick) 180 mg/dL (70-99) H Laboratory Tests 08/14/19 16:50 08/15/19 03:20 Laboratory Tests 08/14/19 17:35 08/15/19 03:20 ECHOCARDIOGRAM ECHOCARDIOGRAM <Conclusion> The left ventricular systolic function is normal and the ejection fraction is within normal range. The Ejection Fraction is 65-70%. There is moderate concentric left ventricular hypertrophy. There is normal LV segmental wall motion. Doppler and Color Flow revealed trace to mild tricuspid regurgitation. The PA pressure was estimated at 48 mmHg. DATE: 08/15/19926 ASSESSMENT/PLAN ASSESSMENT/PLAN 1. Chest pain, atypical. Trop slightly elevated at 0.028. Most probably type II, demand medicated secondary to #2. Echo today with preserved LV systolic function, no WMA as noted above 2. Malignant hypertension; better controlled with medication titration 3. CAD s/p CABG 2009 4. Aortic dissection s/p repair 2009 4. Hyperlipidemia; statin 5. Diabetes, II 6 . CKD 7. Hypokalemia Recommendations Secondary prevention measures Lipid panel Replace K Will arrange for outpatient stress test and f/u LUIS MIGUEL MEHTA MD 08/15/191940: CARDIAC CONSULT ASSESSMENT/PLAN ASSESSMENT/PLAN Patient seen and examined. Agree with MACHINE CAGE MAKER's assessment and plan CP with atypical features Slight trop elevation prob demand ischemia 2D echo showed normal LVF without any WMA Plan ischemic evaluation as outpatient BP better controlled since admission Thank you for your consultation ERICK LOVING APRN Aug 15, 2019 12:17 LUIS MIGUEL MEHTA MD Aug 15, 2019 19:41
[2019-08-15] MEDS ORDERED: POTASSIUM CHLORIDE 20 MEQ TABLET.ER. PO ONE (12:30)
[2019-08-15 12:37] LABS: CHOLESTEROL/HDL RATIO 3.2
[2019-08-15 12:51] LABS: MAGNESIUM 1.5 mg/dL (1.8-2.4)
--- NOTE | 2019-08-15 13:16 | NUR ---
SS following for discharge planning. SS reviewed pt chart. Pt is from home with family and is currently on room air. SS will continue to follow for discharge planning.
--- NOTE | 2019-08-15 13:27 | PDOC ---
[facility] [facility] PROGRESS NOTE Chief Complaint Chief Complaint chest pain malignant hypertension acute on chronic renal failure DM2 History of Present Illness History of Present Illness 08/15/19 Pt seen and examined. Blood pressure 123/66 this a.m. then 160s/70s at 1100. Was 247/97 last night. Echo was done today and showed normal EF. Vitals/I&O Vitals/I&O: Vital Signs Date Time Temp Pulse Resp B/P (MAP) Pulse Ox O2 Delivery O2 Flow Rate FiO2 08/15/19 11:25 96 Nasal Cannula 2.0 08/15/19 11:00 97.2 65 18 164/76 (105) 97.2 I & O 08/14/19 08/14/19 08/15/19 15:00 23:00 07:00 Intake Total 0 ml Balance 0 ml Physical Exam General: Alert, Oriented X3, Cooperative, No acute distress Heart: Regular rate, Normal S1, Normal S2 Lungs: Wheezing Abdomen: Normal bowel sounds, Soft Extremities: No clubbing, No edema Skin: No rashes, No significant lesion Labs Labs: Laboratory Tests Test 08/14/19 16:50 08/14/19 17:35 08/14/19 20:58 08/14/19 21:30 White Blood Count 7.6 x10^3/uL (4.0-11.0) Red Blood Count 5.28 x10^6/uL (3.50-5.40) Hemoglobin 15.2 g/dL (12.0-15.5) Hematocrit 45.2 % (36.0-47.0) Mean Corpuscular Volume 86 fL (79-100) Mean Corpuscular Hemoglobin 29 pg (25-35) Mean Corpuscular Hemoglobin Concent 34 g/dL (31-37) Red Cell Distribution Width 15.1 % (11.5-14.5) Platelet Count 118 x10^3/uL (140-400) Neutrophils (%) (Auto) 58 % (31-73) Lymphocytes (%) (Auto) 30 % (24-48) Monocytes (%) (Auto) 8 % (0-9) Eosinophils (%) (Auto) 3 % (0-3) Basophils (%) (Auto) 1 % (0-3) Neutrophils # (Auto) 4.4 x10^3/uL (1.8-7.7) Lymphocytes # (Auto) 2.3 x10^3/uL (1.0-4.8) Monocytes # (Auto) 0.6 x10^3/uL (0.0-1.1) Eosinophils # (Auto) 0.2 x10^3/uL (0.0-0.7) Basophils # (Auto) 0.1 x10^3/uL (0.0-0.2) Sodium Level 147 mmol/L (136-145) Potassium Level 4.1 mmol/L (3.5-5.1) Chloride Level 106 mmol/L (98-107) Carbon Dioxide Level 29 mmol/L (21-32) Anion Gap 12 (6-14) Blood Urea Nitrogen 27 mg/dL (7-20) Creatinine 1.4 mg/dL (0.6-1.0) Estimated GFR (Cockcroft-Gault) 36.8 BUN/Creatinine Ratio 19 (6-20) Glucose Level 156 mg/dL (70-99) Calcium Level 9.3 mg/dL (8.5-10.1) Total Bilirubin 1.1 mg/dL (0.2-1.0) Aspartate Amino Transf (AST/SGOT) 23 U/L (15-37) Alanine Aminotransferase (ALT/SGPT) 24 U/L (14-59) Alkaline Phosphatase 69 U/L (46-116) Troponin I Quantitative 0.025 ng/mL (0.000-0.055) 0.028 ng/mL (0.000-0.055) Total Protein 7.4 g/dL (6.4-8.2) Albumin 3.6 g/dL (3.4-5.0) Albumin/Globulin Ratio 0.9 (1.0-1.7) Glucose (Fingerstick) 208 mg/dL (70-99) Test 08/15/19 03:20 08/15/19 08:04 08/15/19 11:45 White Blood Count 5.5 x10^3/uL (4.0-11.0) Red Blood Count 5.19 x10^6/uL (3.50-5.40) Hemoglobin 14.6 g/dL (12.0-15.5) Hematocrit 44.0 % (36.0-47.0) Mean Corpuscular Volume 85 fL (79-100) Mean Corpuscular Hemoglobin 28 pg (25-35) Mean Corpuscular Hemoglobin Concent 33 g/dL (31-37) Red Cell Distribution Width 14.5 % (11.5-14.5) Platelet Count 101 x10^3/uL (140-400) Neutrophils (%) (Auto) 54 % (31-73) Lymphocytes (%) (Auto) 33 % (24-48) Monocytes (%) (Auto) 9 % (0-9) Eosinophils (%) (Auto) 4 % (0-3) Basophils (%) (Auto) 1 % (0-3) Neutrophils # (Auto) 3.0 x10^3/uL (1.8-7.7) Lymphocytes # (Auto) 1.8 x10^3/uL (1.0-4.8) Monocytes # (Auto) 0.5 x10^3/uL (0.0-1.1) Eosinophils # (Auto) 0.2 x10^3/uL (0.0-0.7) Basophils # (Auto) 0.0 x10^3/uL (0.0-0.2) Sodium Level 145 mmol/L (136-145) Potassium Level 3.4 mmol/L (3.5-5.1) Chloride Level 105 mmol/L (98-107) Carbon Dioxide Level 32 mmol/L (21-32) Anion Gap 8 (6-14) Blood Urea Nitrogen 20 mg/dL (7-20) Creatinine 1.1 mg/dL (0.6-1.0) Estimated GFR (Cockcroft-Gault) 48.6 BUN/Creatinine Ratio 18 (6-20) Glucose Level 173 mg/dL (70-99) Calcium Level 9.0 mg/dL (8.5-10.1) Magnesium Level 1.5 mg/dL (1.8-2.4) Total Bilirubin 1.3 mg/dL (0.2-1.0) Aspartate Amino Transf (AST/SGOT) 21 U/L (15-37) Alanine Aminotransferase (ALT/SGPT) 21 U/L (14-59) Alkaline Phosphatase 70 U/L (46-116) Troponin I Quantitative 0.017 ng/mL (0.000-0.055) Total Protein 7.2 g/dL (6.4-8.2) Albumin 3.5 g/dL (3.4-5.0) Albumin/Globulin Ratio 0.9 (1.0-1.7) Triglycerides Level 129 mg/dL (0-150) Cholesterol Level 131 mg/dL (0-200) LDL Cholesterol, Calculated 65 mg/dL (0-100) VLDL Cholesterol, Calculated 26 mg/dL (0-40) Non-HDL Cholesterol Calculated 91 mg/dL (0-129) HDL Cholesterol 41 mg/dL (40-60) Cholesterol/HDL Ratio 3.2 Glucose (Fingerstick) 180 mg/dL (70-99) 186 mg/dL (70-99) Review of Systems Review of Systems: No headache. Yes chest pain Assessment and Plan Assessmemt and Plan Problems Medical Problems: (1) Acute on chronic renal failure Status: Acute (2) Back pain Status: Chronic (3) Chest pain Status: Acute (4) Intermittent chest pain Status: Acute (5) Malignant hypertension Status: Chronic (6) T2DM (type 2 diabetes mellitus) Status: Chronic chest pain malignant hypertension acute on chronic renal failure Dm2, add SSI, hold metformin for renal fxn cardiac monitoring, serial enzymes, serial EKG Discussed with nurse. Hope to discharge if ok with cardiology Norvasc PO Metoprolol Tartrate PO Comment Review of Relevant I have reviewed the following items lety (where applicable) has been applied. Medications: Current Medications Medications (Trade) Dose Ordered Sig/Ippo Route PRN Reason Start Time Stop Time Status Last Admin Dose Admin Aspirin (Daly Aspirin) 325 mg 1X ONCE PO 08/14/19 16:45 08/14/19 16:46 DC 08/14/19 17:56 Famotidine (Pepcid Vial) 20 mg 1X ONCE IVP 08/14/19 16:45 08/14/19 16:46 DC 08/14/19 17:57 Amlodipine Besylate (Norvasc) 5 mg 1X ONCE PO 08/14/19 20:15 08/14/19 20:16 DC 08/14/19 20:31 Amlodipine Besylate (Norvasc) 5 mg DAILY PO 08/15/19 09:00 08/15/19 08:49 Aspirin (Ecotrin) 81 mg DAILY PO 08/15/19 09:00 08/15/19 08:49 Atorvastatin Calcium (Lipitor) 40 mg QHS PO 08/14/19 21:00 08/14/19 20:30 Benzonatate (Tessalon Perle) 100 mg TID PO 08/14/19 21:00 08/15/19 08:50 Losartan Potassium (Cozaar) 50 mg DAILY PO 08/15/19 09:00 08/15/19 08:49 Metoprolol Tartrate (Lopressor) 50 mg BID PO 08/14/19 21:00 08/15/19 09:00 Prednisone (Prednisone) 10 mg DAILY PO 08/15/19 09:00 08/15/19 08:49 Cetirizine HCl (ZyrTEC) 10 mg DAILY PO 08/15/19 09:00 08/15/19 08:49 Linagliptin (Tradjenta) 5 mg DAILY PO 08/15/19 09:00 08/15/19 08:49 Albuterol/ Ipratropium (Duoneb) 3 ml RTQID NEB 08/15/19 08:00 08/15/19 11:24 Hydralazine HCl (Apresoline Inj) 10 mg PRN Q4HRS PRN IVP ELEVATED BP, SEE COMMENTS 08/14/19 20:15 08/14/19 23:14 Enoxaparin Sodium (Lovenox 30mg Syringe) 30 mg Q24H SQ 08/15/19 09:00 08/15/19 08:50 RANJAN WEIR III DO Aug 15, 2019 13:27
[2019-08-15 15:00] VITALS: BP 107/62
[2019-08-15] MEDS ORDERED: AMLO5TAB4 PO (16:23)
--- NOTE | 2019-08-15 17:57 | NUR ---
Discharge: Teaching verbal and written. Reviewed medication, norvasc, chest pain, hypertension, hyperkalemia, ect. Patients daughter in law Xai verbilized understanding. IV removed without complications, catheter tip in tact. 1 prescription for Norvasc given to patient. All belongings with patient. Patient assisted off of unit via wheelchair accompanied by family and STUFFER. patient went to visit her which is a patient on 5th floor.
== END 2019-08-15 17:55 | disposition home or self-care (01) | DRG 682 ==
LOC: ER 16:12 → 2 NORTH 19:04
PROVIDERS: ADMIT Internal Medicine; ATTEND Internal Medicine
DX: I13.10 Hypertensive heart and chronic kidney disease without heart failure, with stage 1 through stage 4 chronic kidney disease, or unspecified chronic kidney disease (principal); N17.0 Acute kidney failure with tubular necrosis; E87.0 Hyperosmolality and hypernatremia; M19.90 Unspecified osteoarthritis, unspecified site; J44.9 Chronic obstructive pulmonary disease, unspecified; E78.00 Pure hypercholesterolemia, unspecified; E78.5 Hyperlipidemia, unspecified; N18.9 Chronic kidney disease, unspecified; E11.22 Type 2 diabetes mellitus with diabetic chronic kidney disease; E87.6 Hypokalemia; I25.10 Atherosclerotic heart disease of native coronary artery without angina pectoris; E11.42 Type 2 diabetes mellitus with diabetic polyneuropathy; Z95.1 Presence of aortocoronary bypass graft; Z95.5 Presence of coronary angioplasty implant and graft; Z86.011 Personal history of benign neoplasm of the brain
CPT/HCPCS: 36415; 70450; 71045; 80053; 80061; 82465; 82962; 83735; 84484; 85025; 93005; 93306; 94640; 94760; 96374; J0360; J1650; J1815; J3490; J7512; J7620; 99285-25; G0378

== ENCOUNTER 2019-12-20 22:10 | Emergency (ER) | payer MEDICAID ==
[~2019-12-20] VITALS: Ht 149.9 cm; Wt 60.0 kg
[~2019-12-20 22:10] MED LIST changes: +AMLO5TAB4 PO
[2019-12-20] MEDS ORDERED: IPRATRPIUM/ALBUTEROL 0.5/2.5MG 3 ML NEBU. NEB ONE (23:45)
[2019-12-20] MEDS ORDERED: predniSONE 20 MG TABLET PO ONE (23:45)
[2019-12-20] MEDS ORDERED: ACETAMINOPHEN 500 MG TABLET PO ONE (23:45)
--- NOTE | 2019-12-21 00:15 | RAD ---
EXAM: AP View of the chest DATE: 12/20/2019 11:26 PM INDICATION: Cough COMPARISON: 08/14/2019, 10/25/2018 FINDINGS/ IMPRESSION: Heart is mildly enlarged. Atherosclerotic calcifications of the tortuous aorta are seen. Bilateral interstitial prominence is seen, possibly atypical infectious or inflammatory process or interstitial edema. Trace left pleural effusion. No pneumothorax. Electronically signed by: Leland Andrews MD (12/21/2019 12:12 AM) [id number]
[2019-12-21 00:23] LABS: INFLUENZA A PATIENT POSITIVE (NEGATIVE); INFLUENZA B PATIENT NEGATIVE (NEGATIVE)
[2019-12-21] MEDS ORDERED: DOXY100T PO (00:47)
--- NOTE | 2019-12-21 00:48 | PHYS DOC ---
Past Medical History Past Medical History: COPD, Diabetes-Type II, Hypertension Additional Past Medical Histor: HIGH CHOLESTEROL Past Surgical History: No Surgical History Additional Past Surgical Histo: Cardiac Stents - UNKNOWN NUMBER Smoking Status: Never Smoker Alcohol Use: None Drug Use: None Adult General Chief Complaint Chief Complaint: FLU SYMPTOM HPI HPI Patient is a 74 year old female with a history of diabetes type 2, hypertension, COPD non-smoker who presents to the ED today complaining of cough and fever that began today. Patient is in the ED with her son who is interpreting for [employer] language, the son reports patient was exposed to influenza from the grandchild who has the disease. Review of Systems Review of Systems Constitutional: Reports fever Eyes: Denies change in visual acuity, redness, or eye pain [] HENT: Denies nasal congestion or sore throat [] Respiratory: Reports cough, denies shortness of breath [] Cardiovascular: No additional information not addressed in HPI [] GI: Denies abdominal pain, nausea, vomiting, bloody stools or diarrhea [] : Denies dysuria or hematuria [] Musculoskeletal: Denies back pain or joint pain [] Integument: Denies rash or skin lesions [] Neurologic: Denies headache, focal weakness or sensory changes [] All other systems were reviewed and found to be within normal limits, except as documented in this note. Current Medications Current Medications Current Medications Medications (Trade) Dose Ordered Sig/Pipo Start Time Stop Time Status Last Admin Dose Admin Acetaminophen (Tylenol) 1,000 mg 1X ONCE 12/20/19 23:45 12/20/19 23:46 DC 12/20/19 23:49 1,000 MG Albuterol/ Ipratropium (Duoneb) 3 ml 1X ONCE 12/20/19 23:45 12/20/19 23:46 DC 12/20/19 23:58 3 ML Ceftriaxone Sodium (Rocephin Im) 1 gm 1X ONCE 12/21/19 00:45 12/21/19 00:46 UNV Clonidine HCl (Catapres) 0.1 mg 1X ONCE 12/21/19 00:45 12/21/19 00:46 UNV Lidocaine HCl (Xylocaine-Mpf 1% 2ml Vial) 2 ml 1X ONCE 12/21/19 00:45 12/21/19 00:46 UNV Prednisone (Prednisone) 60 mg 1X ONCE 12/20/19 23:45 12/20/19 23:46 DC 12/20/19 23:49 60 MG Allergies Allergies Allergies Coded Allergies Type Severity Reaction Last Updated Verified No Known Drug Allergies 12/06/15 No Physical Exam Physical Exam Constitutional: Well developed, well nourished, no acute distress, non-toxic appearance. [] HENT: Normocephalic, atraumatic, bilateral external ears normal, oropharynx moist, no oral exudates, nose normal. [] Eyes: PERRLA, EOMI, conjunctiva normal, no discharge. [] Neck: Normal range of motion, no tenderness, supple, no stridor. [] Cardiovascular:Heart rate regular rhythm, no murmur [] Lungs & Thorax: Diminished breath sounds to posterior lung bases Abdomen: Bowel sounds normal, soft, no tenderness, no masses, no pulsatile masses. [] Skin: Warm, dry, no erythema, no rash. [] Back: No tenderness, no CVA tenderness. [] Extremities: No tenderness, no cyanosis, no clubbing, ROM intact, no edema. [] Neurologic: Alert and oriented X 2, normal motor function, normal sensory function, no focal deficits noted. Cranial nerves II through XII intact communication is difficult due to language barrier Psychologic: Affect normal, judgement normal, mood normal. [] Current Patient Data Vital Signs Vital Signs Date Time Temp Pulse Resp B/P (MAP) Pulse Ox O2 Delivery O2 Flow Rate FiO2 12/20/19 23:58 92 Nasal Cannula 3.0 12/20/19 23:15 101.0 80 22 215/94 (134) 101.0 Lab Values Laboratory Tests Test 12/20/19 23:59 Influenza Type A Antigen Positive (NEGATIVE) Influenza Type B Antigen Negative (NEGATIVE) EKG EKG [] Radiology/Procedures Radiology/Procedures []PROCEDURE: PORTABLE CHEST 1V EXAM: AP View of the chest DATE: 12/20/2019 11:26 PM INDICATION: Cough COMPARISON: 08/14/2019, 10/25/2018 FINDINGS/ IMPRESSION: Heart is mildly enlarged. Atherosclerotic calcifications of the tortuous aorta are seen. Bilateral interstitial prominence is seen, possibly atypical infectious or inflammatory process or interstitial edema. Trace left pleural effusion. No pneumothorax. Electronically signed by: Leland Andrews MD (12/21/2019 12:12 AM) [id number] DICTATED and SIGNED BY: LELAND ANDREWS MD DATE: 12/21/19 0012 Course & Med Decision Making Course & Med Decision Making Pertinent Labs and Imaging studies reviewed. (See chart for details) This is a 74-year-old female patient presenting to the ED today with cough and fever that began today after being exposed to influenza from another family member. Family report PCP was already contacted and prescription for Tamiflu was ordered but not picked up yet. Patient was given 1 dose of Tamiflu from another family member. Patient arrives in the ED with a temperature of 101. Patient was given Tylenol, positive for influenza A. Chest x-ray shows possible atypical infection or inflammatory process or interstitial edema. Patient was given a shot of Rocephin in the ED. Discharged with prescription for doxycycline. Follow-up with primary care doctor in the course of this week. Dragon Disclaimer Dragon Disclaimer This electronic medical record was generated, in whole or in part, using a voice recognition dictation system. Departure Departure Impression: Primary Impression: Influenza A Additional Impressions: Fever Infiltrate of lung present on chest x-ray Disposition: HOME, SELF-CARE Condition: STABLE Referrals: VIMAL MONAE MD (PCP) Follow-up in the course of this week Patient Instructions: Fever, Adult, [id number], Influenza A (H1N1), Pneumonia, Adult Additional Instructions: You have influenza A and possible pneumonia. Continue taking Tamiflu that your doctor ordered. Please take Tylenol/Motrin for pain or fever. We will also put you on antibiotics for pneumonia ensure you complete them. Rest, push fluids. Follow-up with your doctor in the course of this week. Scripts Doxycycline Hyclate (DOXYCYCLINE HYCLATE) 100 Mg Tablet 1 TAB PO BID, #14 TAB Prov: GABRIEL GRANT FINISH SAW OPERATOR 12/21/19 Problem Qualifiers Additional Impressions: Fever Fever type: unspecified Qualified Codes: R50.9 - Fever, unspecified GABRIEL GRANT FINISH SAW OPERATOR Dec 21, 2019 00:48
[2019-12-21 01:00] VITALS: BP 182/77
[2019-12-21] MEDS ORDERED: cloNIDine HCL 0.1 MG TABLET PO ONE (01:00)
[2019-12-21] MEDS ORDERED: cefTRIAXone IM 1 GM VIAL IM ONE (01:00)
[2019-12-21] MEDS ORDERED: LIDOCAINE 1% PF 2 ML VIAL. INJ ONE (01:00)
== END 2019-12-21 01:05 | disposition home or self-care (01) ==
LOC: ER 22:10
DX: J10.1 Influenza due to other identified influenza virus with other respiratory manifestations (principal); R91.8 Other nonspecific abnormal finding of lung field; J44.9 Chronic obstructive pulmonary disease, unspecified; E11.9 Type 2 diabetes mellitus without complications; I10 Essential (primary) hypertension; E78.00 Pure hypercholesterolemia, unspecified; Z95.5 Presence of coronary angioplasty implant and graft
CPT/HCPCS: 71045; 87804; 94640; 96372; 99285; J0696; J3490; J7512

== ENCOUNTER 2020-03-10 16:29 | Inpatient (IN) | payer MEDICAID ==
[~2020-03-10] VITALS: Ht 144.8 cm; Wt 64.0 kg
[~2020-03-10 16:29] MED LIST changes: +DOXY100T PO; +METF-658 PO; -METF500T11 PO
--- NOTE | 2020-03-10 16:43 | PHYS DOC ---
Past Medical History Past Medical History: COPD, Diabetes-Type II, Hypertension Additional Past Medical Histor: HIGH CHOLESTEROL Past Surgical History: No Surgical History Additional Past Surgical Histo: Cardiac Stents - UNKNOWN NUMBER Smoking Status: Never Smoker Alcohol Use: None Drug Use: None General Adult EDM: Chief Complaint: WEAKNESS/GENERALIZED HPI: HPI: Patient is a 74 year old female presenting to the ED with a chief complaint of weakness and numbness in her left upper extremity. Daughter is translating for patient. Patient states that the symptoms started yesterday afternoon. Patient does have a history of COPD, diabetes and high blood pressure. Patient does not take any blood thinners. Patient also denies an active smoker. Patient does use an unknown amount of oxygen at home. Patient denies headache, slurred speech, trouble walking. Patient states that she has a weaker spool maker in her left upper extremity than before. Review of Systems: Review of Systems: Constitutional: Denies fever or chills. [] Eyes: Denies change in visual acuity. [] HENT: Denies nasal congestion or sore throat. [] Respiratory: Denies cough or shortness of breath. [] Cardiovascular: Denies chest pain or edema. [] GI: Denies abdominal pain, nausea, vomiting : Denies dysuria. [] Neurologic: Complains about left upper extremity weakness and numbness Heart Score: Risk Factors: Risk Factors: DM, Current or recent (<one month) smoker, HTN, HLP, family history of CAD, obesity. Risk Scores: Score 0 - 3: 2.5% MACE over next 6 weeks - Discharge Home Score 4 - 6: 20.3% MACE over next 6 weeks - Admit for Clinical Observation Score 7 - 10: 72.7% MACE over next 6 weeks - Early Invasive Strategies Allergies: Allergies: Allergies Coded Allergies Type Severity Reaction Last Updated Verified No Known Drug Allergies 12/06/15 No Physical Exam: PE: Constitutional: Well developed, well nourished, no acute distress, non-toxic appearance. [] HENT: Normocephalic, atraumatic Eyes: EOMI Neck: Normal range of motion, Supple Cardiovascular:Heart rate regular rhythm Lungs & Thorax: Bilateral breath sounds clear to auscultation [] Abdomen: Bowel sounds normal, soft, no tenderness Extremities: No tenderness, ROM intact Neurologic: Alert and oriented X 3, equal strength in both upper extremities. Patient states that her sensation is altered in her left upper extremity compared to the right. EKG: EKG: [] Radiology/Procedures: Radiology/Procedures: [] Impression: CT Head IMPRESSION: No new intracranial abnormality is seen. Stable study. Stable right frontal partially calcified meningioma. Small subcentimeter meningioma versus focal cortical thickening of the inner table of the skull of the posterior left parietal region which is stable. Stable chronic small vessel ischemic disease. On the previous study, a small cutaneous nodule was seen in the left frontal area. This is again evident and is unchanged. Course & Med Decision Making: Course & Med Decision Making Pertinent Labs and Imaging studies reviewed. (See chart for details) Ordered labs, EKG, UA, CT head CT head shows a stable meningioma there is been seen in the past imaging. Labs are within normal limits. Discussed results and plan of care with patient and family. Due to patient's presenting symptoms, patient will be admitted for further evaluation and treatment. I will discuss case with hospitalist service for admission. Discussed case with Dr. Up who accepts admission. Cesia Disclaimer: Cesia Disclaimer: This electronic medical record was generated, in whole or in part, using a voice recognition dictation system. Departure Departure Impression: Primary Impression: TIA (transient ischemic attack) Disposition: ADMITTED INPATIENT Admitting Physician: ISAIAS Condition: GOOD Referrals: VIMAL MONAE MD (PCP) JOHN WASHINGTON DO March 10, 2020 16:43
[2020-03-10 16:54] LABS: BASO # 0.1 x10^3/uL (0.0-0.2); BASO % 1 % (0-3); EOS # 0.2 x10^3/uL (0.0-0.7); EOS % 3 % (0-3); HEMATOCRIT 41.7 % (36.0-47.0); LYMPH # 2.1 x10^3/uL (1.0-4.8); LYMPH % 31 % (24-48); MEAN CORPUSCULAR HEMOGLOBIN 29 pg (25-35); MEAN CORPUSCULAR HGB CONC 34 g/dL (31-37); MEAN CORPUSCULAR VOLUME 85 fL (79-100); MONO # 0.5 x10^3/uL (0.0-1.1); MONO % 8 % (0-9); NEUT % 58 % (31-73); PLATELET COUNT 122 x10^3/uL (140-400); RED BLOOD COUNT 4.92 x10^6/uL (3.50-5.40); RED CELL DISTRIBUTION WIDTH 14.8 % (11.5-14.5); WHITE BLOOD COUNT 6.9 x10^3/uL (4.0-11.0)
[2020-03-10 17:03] LABS: PROTHROMBIN TIME PATIENT 12.7 SEC (11.7-14.0)
[2020-03-10 17:05] LABS: CREATININE 1.6 mg/dL (0.6-1.0); GFR 31.5; POTASSIUM 4.3 mmol/L (3.5-5.1)
[2020-03-10 17:10] LABS: ALBUMIN 3.8 g/dL (3.4-5.0); TOTAL PROTEIN 7.6 g/dL (6.4-8.2)
--- NOTE | 2020-03-10 17:25 | RAD ---
CT HEAD WO CONTRAST Clinical indications: Reason: neuro deficit, left side numbness since yesterday. COMPARISON: August 14, 2019. Technique: Noncontrast axial cross sectional scanning of the head was performed. PQRS compliance Statement One or more of the following individualized dose reduction techniques were utilized for this study: 1. Automated exposure control 2. Adjustment of the mA and/or kV according to patient size 3. Use of iterative reconstruction technique Findings: Again seen is a calcified meningioma of the paramidline of the right frontal lobe anteriorly. This measures about 3 cm and is unchanged. There is a another extradural round calcification of the posterior left parietal region which measures less than a centimeter. This could represent a small meningioma or focal cortical thickening of the inner table of the skull. This is stable. No acute intracranial hemorrhage or midline shift or mass-effect or hydrocephalus or extra-axial fluid collection is seen. There is encephalomalacia adjacent to the right frontal meningioma. This is unchanged. There is moderate bilateral periventricular white matter hypodensity consistent with chronic small vessel ischemic disease in this age group. This is stable. There is chronic small vessel ischemic disease of the anterior limb of the left internal capsule. This is unchanged. No new focal hypodense area or sulci effacement is seen to indicate an acute infarct or edema radiographically. No skull fracture or pneumocephalus is seen. No opacification of the mastoid sinuses or the middle ear cavities or the paranasal sinuses is seen. The maxillary sinuses are not completely seen in this study. IMPRESSION: No new intracranial abnormality is seen. Stable study. Stable right frontal partially calcified meningioma. Small subcentimeter meningioma versus focal cortical thickening of the inner table of the skull of the posterior left parietal region which is stable. Stable chronic small vessel ischemic disease. On the previous study, a small cutaneous nodule was seen in the left frontal area. This is again evident and is unchanged. Electronically signed by: Enrico Hussein MD (03/10/2020 5:22 PM) [id number]
[2020-03-10 19:54] VITALS: BP 122/65
[2020-03-10] MEDS ORDERED: DEXTROSE 50% 25 GM / 50ML DISP.SYRIN. IV PRN (20:00)
[2020-03-10] MEDS ORDERED: GABAPENTIN 100 MG CAPSULE. PO PRN (22:00)
[2020-03-10] MEDS ORDERED: ALBUTEROL SULFATE 2.5 MG/3 ML NEBU. INH PRN (22:00)
[2020-03-10] MEDS ORDERED: ACETAMINOPHEN 325 MG TABLET. PO PRN (22:00)
[2020-03-10] MEDS ORDERED: ONDANSETRON PF 4 MG/2 ML VIAL. IVP PRN (22:00)
[2020-03-10] MEDS: ATORVASTATIN CALCIUM 40 MG TABLET. PO SCH (22:33)
[2020-03-10] MEDS: METOPROLOL TART IMMED RELEASE 25 MG TABLET. PO SCH (22:33)
[2020-03-10] MEDS: HEPARIN for SUB-Q USE 5,000 UNIT/ML VIAL. SQ SCH (22:39)
[2020-03-10 23:41] VITALS: BP 129/63
[2020-03-11 03:36] VITALS: BP 149/64
[2020-03-11] MEDS: HEPARIN for SUB-Q USE 5,000 UNIT/ML VIAL. SQ SCH ×3 (05:22→21:19)
[2020-03-11 07:00] VITALS: BP 153/70
--- NOTE | 2020-03-11 07:21 | EKG ---
[facility] [address] [place] [address] Test Date: 2020-03-10 Test Time: 18:06:54 Pat Name: TRACEY LOPEZ Department: Room: 3 Gender: F Disability Case Manager: : 1945 Requested By: JHON WASHINGTON Order Number: [id number] Reading MD: Fran Juarez MD Measurements Intervals [place] Rate: 63 P: 90 DE: 158 QRS: 1 QRSD: 84 T: 58 QT: 438 QTc: 452 Interpretive Statements SINUS RHYTHM NON-SPECIFIC ST/T CHANGES Electronically Signed On 03-11-2020 12:24:55 CDT by Fran Juarez MD
[2020-03-11] MEDS: IPRATRPIUM/ALBUTEROL 0.5/2.5MG 3 ML NEBU. NEB SCH ×4 (07:32→20:11)
[2020-03-11] MEDS ORDERED: ASPIRIN ENTERIC COATED 81 MG TABLET.DR. PO SCH (08:00)
[2020-03-11] MEDS: INSULIN LISPRO 300 UNITS/3 ML VIAL. SQ SCH ×3 (08:00→16:28)
[2020-03-11] MEDS: METOPROLOL TART IMMED RELEASE 25 MG TABLET. PO SCH ×2 (08:33→21:15)
[2020-03-11] MEDS: amLODIPine BESYLATE 5 MG TABLET PO SCH (08:33)
[2020-03-11] MEDS: CETIRIZINE HCL 10 MG TABLET. PO SCH (08:33)
[2020-03-11] MEDS: LINAGLIPTIN 5 MG TABLET PO SCH (08:33)
[2020-03-11] MEDS ORDERED: ACETAMINOPHEN 650 MG SUPP.RECT. PR PRN (09:00)
[2020-03-11] MEDS ORDERED: NON FORMULARY ITEM (Tiotropium Bromide (Spiriva) 1 CAP) IH SCH (09:00)
[2020-03-11] MEDS ORDERED: ASPIRIN RECTAL 300 MG SUPP. PR PRN (09:00)
[2020-03-11] MEDS ORDERED: ACETAMINOPHEN 325 MG TABLET. PO PRN (09:00)
--- NOTE | 2020-03-11 10:11 | PDOC2 ---
NEUROLOGY CONSULT Date of Admission Date of Admission DATE: 03/11/20 TIME: 10:02 Reason for Consult Reason for Consult: Transient ischemic attack Referring Physician Referring Physician: Dr. Up Source Source: Caregiver ([id number]), Chart review, Patient History of Present Illness History of Present Illness The patient is a 74-year-old right-handed female who presented to the emergency department yesterday with weakness and numbness in the left arm and leg. Symptoms started about 2:30. NIHSS was 2. Patient has history of hypertension and diabetes but has never had a stroke, seizure, or head injury. She is feeling better today. Neurology has seen in the past for right frontal meningioma and dizziness. Past Medical History Cardiovascular: CAD, HTN, Hyperlipidemia Pulmonary: COPD (on home oxygen) Endocrine: Diabetes Past Surgical History Past Surgical History: CABG, Other (coronary stents) Family History Family History: No pertinent hx (unknown) Social History Social History Lives with family, no alcohol or tobacco Current Medications Current Medications Current Medications Insulin Human Lispro (HumaLOG) 0-7 UNITS TIDWMEALS SQ ; Start 03/11/20 at 08:00 Dextrose (Dextrose 50%-Water Syringe) 12.5 gm PRN Q15MIN PRN IV SEE COMMENTS; Start 03/10/20 at 20:00 Albuterol Sulfate (Ventolin Neb Soln) 2.5 mg PRN Q4HRS PRN INH SHORTNESS OF BREATH; Start 03/10/20 at 22:00 Amlodipine Besylate (Norvasc) 5 mg DAILY PO Last administered on 03/11/20at 08:33; Start 03/11/20 at 09:00 Aspirin (Ecotrin) 81 mg DAILYWBKFT PO Last administered on 03/11/20at 08:32; Start 03/11/20 at 08:00; Stop 03/11/20 at 08:51; Status DC Atorvastatin Calcium (Lipitor) 40 mg HS PO Last administered on 03/10/20at 22:33; Start 03/10/20 at 22:30 Gabapentin (Neurontin) 100 mg PRN Q8HRS PRN PO PAIN; Start 03/10/20 at 22:00 Metoprolol Tartrate (Lopressor) 25 mg BID PO Last administered on 03/11/20at 08:3 3; Start 03/10/20 at 22:30 Cetirizine HCl (ZyrTEC) 10 mg DAILY PO Last administered on 03/11/20at 08:33; Start 03/11/20 at 09:00 Linagliptin (Tradjenta) 5 mg DAILY PO Last administered on 03/11/20at 08:33; Start 03/11/20 at 09:00 Non-Formulary Medication (Tiotropium [place] (Spiriva)) 1 cap DAILY IH ; Start 03/11/20 at 09:00; Status UNV Ondansetron HCl (Zofran) 4 mg PRN Q6HRS PRN IVP NAUSEA/VOMITING; Start 03/10/20 at 22:00 Acetaminophen (Tylenol) 650 mg PRN Q6HRS PRN PO MILD PAIN / TEMP > 100.3'F; Start 03/10/20 at 22:00; Stop 03/11/20 at 08:51; Status DC Heparin Sodium (Porcine) (Heparin Sodium) 5,000 unit Q8HRS SQ Last administered on 03/11/20at 05:22; Start 03/10/20 at 22:00 Albuterol/ Ipratropium (Duoneb) 3 ml RTQID NEB Last administered on 03/11/20at 07:32; Start 03/11/20 at 08:00 Acetaminophen (Tylenol) 650 mg PRN Q6HRS PRN PO TEMP > 100.4F; Start 03/11/20 at 09:00 Acetaminophen (Tylenol Supp) 650 mg PRN Q4HRS PRN RI TEMP > 100.4F; Start 03/11/20 at 09:00 Aspirin (Ecotrin) 325 mg DAILYWBKFT PO ; Start 03/12/20 at 08:00 Aspirin (Aspirin Rectal Supp) 300 mg PRN DAILY PRN RI IF UNABLE TO TAKE PO; Start 03/11/20 at 09:00 Active Scripts Active Doxycycline Hyclate 100 Mg Tablet 1 Tab PO BID Prednisone (Prednisone) 10 Mg Tablet 10 Mg PO UD Take 5 tablets by mouth daily for 2 days, then take 4 tablets by mouth daily for 2 days, then take 3 tablets by mouth daily for 2 days, then take 2 tablets by mouth daily for 2 days, then take 1 tablets by mouth daily for 2 days, then stop. Tessalon Perle (Benzonatate) 100 Mg Capsule 1 Cap PO TID Spiriva (Tiotropium [place]) 18 Mcg Cap.w.dev 1 Cap IH DAILY Claritin (Loratadine) 10 Mg Tablet 1 Tab PO DAILY Losartan Potassium 50 Mg Tablet 50 Mg PO DAILY 30 Days Atorvastatin Calcium 40 Mg Tablet 1 Tab PO DAILY Reported Norvasc (Amlodipine Besylate) 5 Mg Tablet 5 Mg PO DAILY Proair Hfa (Albuterol Sulfate) 8.5 Gm Hfa.aer.ad 1 Puff INH QID PRN Januvia (Sitagliptin Phosphate) 50 Mg Tablet 1 Tab PO DAILY Metoprolol Tartrate 25 Mg Tablet 25 Mg PO BID Aspir 81 (Aspirin) 81 Mg Tablet.dr 1 Tab PO DAILY Glipizide Er (Glipizide) 2.5 Mg Tab.er.24 4 Tab PO DAILY Gave this morning Take again tomorrow morning Gabapentin (Gabapentin) 100 Mg Capsule 100 Mg PO PRN Q8HRS PRN Not given on this admission Take as previously directed Metformin Hcl Er (Metformin Hcl) 500 Mg Tab.er.24h 2 Tab PO BID Gave this morning Take again tonight Allergies Allergies: Coded Allergies: No Known Drug Allergies (Unverified , 12/06/15) ROS Review of System Negative for fever, chills, weight loss, shortness of breath, chest pain, indigestion, hematochezia, melena, and dysuria. Full 14-point review of systems is negative. Physical Exam Physical Examination General: Well-developed, well-nourished female in no acute distress HEENT: Normocephalic andatraumatic. Temporal arteriespulsatile and nontender. Neck: Supple without bruit, no meningismus Musculoskeletal: Stability:see neurologic. Gait exam:see neurologic. Tone:see neuro logic.Strength:see neurologic. Neurological: Mental Status:intact, orientation, memory, attention span/concentration, langua ge, fund of knowledge normal. Cranial Nerves:Pupils equal and reactive to light, extraocular movements areintact, visual wylie are full to confrontation. Facial sensation is normal. There is no facial asymmetry. Vestibulo-ocular reflex is intact. Palate elevates and tongue protrudes in midline. All other cranial related problems are negative except as mentioned before.Reflexes:2+ and symmetric with flexor plantar responses. Motor:5/5 strength with normal tone and bulk. Coordination:Finger-nose finger and zskb-pf-xmhw testing are normal. Rapid alternating movements and fine finger movements are intact. Gait: not tested. Sensory: stocking loss. Vitals VITALS Vital Signs Date Time Temp Pulse Resp B/P (MAP) Pulse Ox O2 Delivery O2 Flow Rate FiO2 03/11/20 08:33 60 153/70 03/11/20 08:00 Nasal Cannula 1.0 03/11/20 07:32 98 03/11/20 07:00 97.5 15 97.5 Labs Labs Laboratory Tests Test 03/10/20 16:44 03/10/20 20:20 03/11/20 07:51 White Blood Count 6.9 x10^3/uL (4.0-11.0) Red Blood Count 4.92 x10^6/uL (3.50-5.40) Hemoglobin 14.0 g/dL (12.0-15.5) Hematocrit 41.7 % (36.0-47.0) Mean Corpuscular Volume 85 fL (79-100) Mean Corpuscular Hemoglobin 29 pg (25-35) Mean Corpuscular Hemoglobin Concent 34 g/dL (31-37) Red Cell Distribution Width 14.8 % (11.5-14.5) Platelet Count 122 x10^3/uL (140-400) Neutrophils (%) (Auto) 58 % (31-73) Lymphocytes (%) (Auto) 31 % (24-48) Monocytes (%) (Auto) 8 % (0-9) Eosinophils (%) (Auto) 3 % (0-3) Basophils (%) (Auto) 1 % (0-3) Neutrophils # (Auto) 4.0 x10^3/uL (1.8-7.7) Lymphocytes # (Auto) 2.1 x10^3/uL (1.0-4.8) Monocytes # (Auto) 0.5 x10^3/uL (0.0-1.1) Eosinophils # (Auto) 0.2 x10^3/uL (0.0-0.7) Basophils # (Auto) 0.1 x10^3/uL (0.0-0.2) Prothrombin Time 12.7 SEC (11.7-14.0) Prothromb Time International Ratio 1.0 (0.8-1.1) Sodium Level 145 mmol/L (136-145) Potassium Level 4.3 mmol/L (3.5-5.1) Chloride Level 106 mmol/L (98-107) Carbon Dioxide Level 31 mmol/L (21-32) Anion Gap 8 (6-14) Blood Urea Nitrogen 35 mg/dL (7-20) Creatinine 1.6 mg/dL (0.6-1.0) Estimated GFR (Cockcroft-Gault) 31.5 BUN/Creatinine Ratio 22 (6-20) Glucose Level 101 mg/dL (70-99) Calcium Level 9.0 mg/dL (8.5-10.1) Total Bilirubin 1.0 mg/dL (0.2-1.0) Aspartate Amino Transf (AST/SGOT) 25 U/L (15-37) Alanine Aminotransferase (ALT/SGPT) 32 U/L (14-59) Alkaline Phosphatase 64 U/L (46-116) Troponin I Quantitative < 0.017 ng/mL (0.000-0.055) Total Protein 7.6 g/dL (6.4-8.2) Albumin 3.8 g/dL (3.4-5.0) Albumin/Globulin Ratio 1.0 (1.0-1.7) Glucose (Fingerstick) 80 mg/dL (70-99) 85 mg/dL (70-99) Laboratory Tests Test 03/10/20 16:44 03/10/20 20:20 03/11/20 07:51 White Blood Count 6.9 x10^3/uL (4.0-11.0) Red Blood Count 4.92 x10^6/uL (3.50-5.40) Hemoglobin 14.0 g/dL (12.0-15.5) Hematocrit 41.7 % (36.0-47.0) Mean Corpuscular Volume 85 fL (79-100) Mean Corpuscular Hemoglobin 29 pg (25-35) Mean Corpuscular Hemoglobin Concent 34 g/dL (31-37) Red Cell Distribution Width 14.8 % (11.5-14.5) Platelet Count 122 x10^3/uL (140-400) Neutrophils (%) (Auto) 58 % (31-73) Lymphocytes (%) (Auto) 31 % (24-48) Monocytes (%) (Auto) 8 % (0-9) Eosinophils (%) (Auto) 3 % (0-3) Basophils (%) (Auto) 1 % (0-3) Neutrophils # (Auto) 4.0 x10^3/uL (1.8-7.7) Lymphocytes # (Auto) 2.1 x10^3/uL (1.0-4.8) Monocytes # (Auto) 0.5 x10^3/uL (0.0-1.1) Eosinophils # (Auto) 0.2 x10^3/uL (0.0-0.7) Basophils # (Auto) 0.1 x10^3/uL (0.0-0.2) Prothrombin Time 12.7 SEC (11.7-14.0) Prothromb Time International Ratio 1.0 (0.8-1.1) Sodium Level 145 mmol/L (136-145) Potassium Level 4.3 mmol/L (3.5-5.1) Chloride Level 106 mmol/L (98-107) Carbon Dioxide Level 31 mmol/L (21-32) Anion Gap 8 (6-14) Blood Urea Nitrogen 35 mg/dL (7-20) Creatinine 1.6 mg/dL (0.6-1.0) Estimated GFR (Cockcroft-Gault) 31.5 BUN/Creatinine Ratio 22 (6-20) Glucose Level 101 mg/dL (70-99) Calcium Level 9.0 mg/dL (8.5-10.1) Total Bilirubin 1.0 mg/dL (0.2-1.0) Aspartate Amino Transf (AST/SGOT) 25 U/L (15-37) Alanine Aminotransferase (ALT/SGPT) 32 U/L (14-59) Alkaline Phosphatase 64 U/L (46-116) Troponin I Quantitative < 0.017 ng/mL (0.000-0.055) Total Protein 7.6 g/dL (6.4-8.2) Albumin 3.8 g/dL (3.4-5.0) Albumin/Globulin Ratio 1.0 (1.0-1.7) Glucose (Fingerstick) 80 mg/dL (70-99) 85 mg/dL (70-99) Images Images CT HEAD WO CONTRAST Clinical indications: Reason: neuro deficit, left side numbness since yesterday. COMPARISON: August 14, 2019. Technique: Noncontrast axial cross sectional scanning of the head was performed. PQRS compliance Statement One or more of the following individualized dose reduction techniques were utilized for this study: 1. Automated exposure control 2. Adjustment of the mA and/or kV according to patient size 3. Use of iterative reconstruction technique Findings: Again seen is a calcified meningioma of the paramidline of the right frontal lobe anteriorly. This measures about 3 cm and is unchanged. There is a another extradural round calcification of the posterior left parietal region which measures less than a centimeter. This could represent a small meningioma or focal cortical thickening of the inner table of the skull. This is stable. No acute intracranial hemorrhage or midline shift or mass-effect or hydrocephalus or extra-axial fluid collection is seen. There is encephalomalacia adjacent to the right frontal meningioma. This is unchanged. There is moderate bilateral periventricular white matter hypodensity consistent with chronic small vessel ischemic disease in this age group. This is stable. There is chronic small vessel ischemic disease of the anterior limb of the left internal capsule. This is unchanged. No new focal hypodense area or sulci effacement is seen to indicate an acute infarct or edema radiographically. No skull fracture or pneumocephalus is seen. No opacification of the mastoid sinuses or the middle ear cavities or the paranasal sinuses is seen. The maxillary sinuses are not completely seen in this study. IMPRESSION: No new intracranial abnormality is seen. Stable study. Stable right frontal partially calcified meningioma. Small subcentimeter meningioma versus focal cortical thickening of the inner table of the skull of the posterior left parietal region which is stable. Stable chronic small vessel ischemic disease. On the previous study, a small cutaneous nodule was seen in the left frontal area. This is again evident and is unchanged. Assessment/Plan Assessment/Plan Impression: Possible transient ischemic attack, non-focal exam now History of right frontal and left parietal and meningiomas Diabetic neuropathy Hypertension, diabetes, hyperlipidemia Recommendations: MRI of the brain Carotid Doppler studies Echocardiogram Aspirin Statin Rehabilitation screening Aim for discharge later today if tests negative. Discussed with patients [id number] Thank you for letting me help with the patient's care. DUC KATE MD Mar 11, 2020 10:11
[2020-03-11 10:37] LABS: CHOLESTEROL/HDL RATIO 3.5
--- NOTE | 2020-03-11 12:06 | RAD ---
DOPPLER CAROTID BILAT History: Reason: TIA, left paresis; / Spl. Instructions: / History: COMPARISON: None Technique: Duplex sonography of the cervical portion of both carotid arteries was performed. Real-time grayscale, color flow Doppler, and Doppler spectral waveform analysis is performed. PQRS Compliance Statement - Stenosis calculations for CT, MR and conventional angiography are based upon measurement of the distal ICA diameter in accordance with the NASCET methodology. Stenosis calculations for carotid ultrasound studies are derived from validated velocity criteria which are known to correlate with the NASCET methodology. Findings: Right side: Peak systolic flow velocity of the CCA is 80 cm/sec. Peak systolic flow velocity of the ICA is 123 cm/sec. The ICA/CCA ratio is 6.8. Peak end diastolic flow velocity of the ICA is 35 cm/sec. The peak systolic velocity of the ECA is 51 cm/sec. Moderate scattered atheromatous plaque most prominent within the carotid bifurcation. Enlarged right common carotid artery compared to the left. Left side: Peak systolic flow velocity of the CCA is 46 cm/sec. Peak systolic flow velocity of the ICA is 87 cm/sec. The ICA/CCA ratio is 1.9. Peak end diastolic flow velocity of the ICA is 23 cm/sec. Peak systolic flow velocity of the ECA is 41 cm/sec. Moderate scattered atheromatous plaque most prominent within the carotid bifurcation. Vertebral arteries: Bilateral vertebral arteries demonstrate antegrade flow. IMPRESSION: 1. Elevated right internal carotid to common carotid artery velocity ratio, may relate to increased size of the common carotid artery contributing to decreased velocity. No luminal stenosis seen on grayscale imaging. No velocity elevation to suggest stenosis. 2. Moderate bilateral atheromatous plaque. Electronically signed by: Randy Smalls DO (03/11/2020 12:03 PM) [id number]
--- NOTE | 2020-03-11 12:34 | CARD ---
MR#: [id number] Date of Study: 03/11/2020 Ordering Physician: DUC KATE, Referring Physician: DUC KATE, Tech: Ayah Byrd APPROVED REPORT EXAM: Two-dimensional and M-mode echocardiogram with Doppler and color Doppler. Other Information Quality : AverageHR: 55bpm INDICATION COPD CVA/TIA RISK FACTORS Hypertension Hyperlipidemia Diabetes 2D DIMENSIONS RVDd2.8 (2.9-3.5cm)Left Atrium(2D)3.6 (1.6-4.0cm) IVSd0.9 (0.7-1.1cm)Aortic Root(2D)2.6 (2.0-3.7cm) LVDd4.5 (3.9-5.9cm)LVOT Diameter2.1 (1.8-2.4cm) PWd1.0 (0.7-1.1cm)LVDs2.6 (2.5-4.0cm) FS (%) 42.2 %SV66.3 ml LVEF(%)73.4 (>50%) Aortic Valve AoV Peak Ole.122.0cm/sAoV VTI26.5cm AO Peak GR.6.0mmHgLVOT Peak Ole.76.4cm/s LVOT VTI 15.26cmAO Mean GR.3mmHg HERBERT (VMAX)1.37nt7ZUR (VTI)1.99cm2 AI P 1/2 [id number] Mitral Valve MV E Sskezlfc37.2cm/sMV DECEL [id number] MV A Irzcojhi46.6cm/sMV [id number] E/A Ratio1.9MVA (PHT)4.19cm2 TDI E/Lateral E'10.6E/Medial E'15.1 Pulmonary Valve PV Peak Kkodnqmg032.0cm/sPV Peak Grad.5mmHg Tricuspid Valve TR P. Zlnwuvwp427rk/sRAP [id number] TR Peak Gr.12zrSqTEFS41ffBj Pulmonary Vein S1 Kidkpkib11.5cm/sD2 Zgzqqwpq75.9cm/s PVa [id number] LEFT VENTRICLE The left ventricle is normal size. There is normal left ventricular wall thickness. The left ventricu lar systolic function is normal. The ejection fraction is 55-60%. There is normal LV segmental wall m otion. RIGHT VENTRICLE The right ventricle is normal size. The right ventricular systolic function is normal. ATRIA The left atrium is mildly dilated. The right atrium is mildly dilated. The interatrial septum is inta ct with no evidence for an atrial septal defect or patent foramen ovale as noted on 2-D or Doppler im aging. AORTIC VALVE The aortic valve is thickened but opens well. Doppler and Color Flow revealed mild aortic regurgitati on. There is no significant aortic valvular stenosis. MITRAL VALVE The mitral valve is thickened but opens well. There is no evidence of mitral valve prolapse. There is no mitral valve stenosis. Doppler and Color-flow revealed trace mitral regurgitation. TRICUSPID VALVE The tricuspid valve is normal in structure and function. Doppler and Color Flow revealed mild tricusp id regurgitation with an estimated PAP of 48 mmHg. There is no tricuspid valve stenosis. PULMONIC VALVE The pulmonary valve is normal in structure and function. Doppler and Color Flow revealed trace to mil d pulmonic valvular regurgitation. GREAT VESSELS The aortic root is normal in size. The ascending aorta is normal in size. The IVC is dilated and mike apses >50% with inspiration. PERICARDIAL EFFUSION There is no evidence of significant pericardial effusion. Critical Notification Critical Value: No <Conclusion> The left ventricular systolic function is normal. The ejection fraction is 55-60%. There is normal LV segmental wall motion. Mild aortic regurgitation. Trace mitral regurgitation. Mild tricuspid regurgitation with an estimated PAP of 48 mmHg. There is no evidence of significant pericardial effusion. Signed by : Zhegn Bryant, Electronically Approved : 03/11/2020 12:34:30
--- NOTE | 2020-03-11 13:19 | RAD ---
BRAIN W/O CONTRAST History:Reason: TIA, left weakness, Technique: Multiplanar, multi sequential MR imaging was performed of the brain without contrast. Comparison: CT March 10, 2020. MRI December 07, 2015 Findings: Acute infarct within the right centrum semiovale. No additional infarct. No intracranial hemorrhage. No hydrocephalus. Chronic small basal ganglia and left thalamic lacunar infarcts. Partially empty sella, often incidental. Moderate focal and confluent foci of FLAIR hyperintensity within the hemispheric white matter and tea, most often due to chronic microvascular ischemia. Right anterior parafalcine extra-axial mass partially calcified measures 2.3 x 2.3 cm, unchanged. Punctate gradient hypointensity within the right medial frontal lobe, likely related to prior microhemorrhage. Imaged orbits are unremarkable. Imaged paranasal sinuses and mastoid air cells are clear. Impression: 1. Acute small right frontal infarct. 2. Unchanged right anterior parasagittal extra-axial mass, favor meningioma. 3. Moderate sequelae of chronic microvascular ischemia. Electronically signed by: Randy Smalls DO (03/11/2020 1:17 PM) [id number]
--- NOTE | 2020-03-11 14:09 | NUR ---
SS following for discharge planning. SS reviewed pt chart and discussed with pt RN. Pt is from home with family and is currently requiring oxygen. PT recommended home independent. SS will continue to follow for discharge planning.
[2020-03-11 15:00] VITALS: BP 100/52
--- NOTE | 2020-03-11 16:28 | PDOC1 ---
History and Physical Date of Admission Date of Admission 03/11/2020 Identification/Chief Complaint Chief Complaint my arm feels numb History of Present Illness History of Present Illness Patient is a 74 year old female who has history of diabetes mellitus type 2 and essential hypertension who was in her usual state of health until Wednesday 2 days priro to her admission when she related to the rduawilliamter in law she felt left arm numbness. Patient symptoms resolved but recurred on Wednesday afternoon and she expressed having the sensation of a stroke. She has not suffered strokes in the past but due to her statement she was brought for evaluation to the ER N eurologically the patient seem to be intact GIGI score was 2 upon eval in the ER. 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 She denies headache no blurred vision no dysphnagia no odynophagia no facial droop no hemiparesis reported. She denies chest pain palpitation or shortness of breath. No abdominal pain no nausea vomiting or diarrhea reported no urinary symptoms. She will be admitted for further evaluation and neurology consultation . Past Medical History Cardiovascular: CAD, HTN, Hyperlipidemia Pulmonary: COPD (on home oxygen) CENTRAL NERVOUS SYSTEM: Periperal neuropathy, Vertigo, Other GI: No pertinent hx Infectious disease: No pertinent hx Renal/: Chronic renal insuff Endocrine: Diabetes Past Surgical History Past Surgical History: CABG, Other (coronary stents) Family History Family History: Other (family history reviewed and found non contributory to the present. ) Social History ALCOHOL: none Drugs: None Current Problem List Problem List Problems Medical Problems: (1) TIA (transient ischemic attack) Status: Acute Current Medications Current Medications Current Medications Medications (Trade) Dose Ordered Sig/Pipo Start Time Stop Time Status Last Admin Dose Admin Acetaminophen (Tylenol Supp) 650 mg PRN Q4HRS PRN 03/11/20 09:00 Acetaminophen (Tylenol) 650 mg PRN Q6HRS PRN 03/11/20 09:00 Albuterol Sulfate (Ventolin Neb Soln) 2.5 mg PRN Q4HRS PRN 03/10/20 22:00 Albuterol/ Ipratropium (Duoneb) 3 ml RTQID 03/11/20 08:00 03/11/20 16:06 3 ML Amlodipine Besylate (Norvasc) 5 mg DAILY 03/11/20 09:00 03/11/20 08:33 5 MG Aspirin (Aspirin Rectal Supp) 300 mg PRN DAILY PRN 03/11/20 09:00 Aspirin (Ecotrin) 325 mg DAILYWBKFT 03/12/20 08:00 Atorvastatin Calcium (Lipitor) 40 mg HS 03/10/20 22:30 03/10/20 22:33 40 MG Cetirizine HCl (ZyrTEC) 10 mg DAILY 03/11/20 09:00 03/11/20 08:33 10 MG Dextrose (Dextrose 50%-Water Syringe) 12.5 gm PRN Q15MIN PRN 03/10/20 20:00 Gabapentin (Neurontin) 100 mg PRN Q8HRS PRN 03/10/20 22:00 Heparin Sodium (Porcine) (Heparin Sodium) 5,000 unit Q8HRS 03/10/20 22:00 03/11/20 14:46 5,000 UNIT Insulin Human Lispro (HumaLOG) 0-7 UNITS TIDWMEALS 03/11/20 08:00 03/11/20 12:18 3 UNITS Linagliptin (Tradjenta) 5 mg DAILY 03/11/20 09:00 03/11/20 08:33 5 MG Metoprolol Tartrate (Lopressor) 25 mg BID 03/10/20 22:30 03/11/20 08:33 25 MG Non-Formulary Medication (Tiotropium Radiant (Spiriva)) 1 cap DAILY 03/11/20 09:00 UNV Ondansetron HCl (Zofran) 4 mg PRN Q6HRS PRN 03/10/20 22:00 Allergies Allergies Allergies Coded Allergies Type Severity Reaction Last Updated Verified No Known Drug Allergies 12/06/15 No ROS Review of System CONSTITUTIONAL: No fever or chills EYES: No recent changes SKIN: No rash or itching CARDIOVASCULAR: No chest pain, syncope, palpitations, or edema RESPIRATORY: No SOB or cough GASTROINTESTINAL: No nausea, vomiting or abdominal pain NEUROLOGICAL: No headaches or weakness ENDOCRINE: No cold or heat intolerance GENITOURINARY: No urgency or frequency of urination MUSCULOSKELETAL: No back pain or joint pain LYMPHATICS: No enlarged lymph nodes PSYCHIATRIC: No anxiety or depression Physical Exam Physical Exam GEN.: No apparent distress. Alert and oriented. HEENT: Head is normocephalic, atraumatic NECK: Supple. LUNGS: Clear to auscultation. HEART: RRR, S1, S2 present. Peripheral pulses intact ABDOMEN: Soft, nontender. Positive bowel sounds. EXTREMITIES: Without any cyanosis. NEUROLOGIC: Normal speech, normal tone PSYCHIATRIC: Normal affect, normal mood. SKIN: No ulcerations Vitals Vitals Vital Signs Date Time Temp Pulse Resp B/P (MAP) Pulse Ox O2 Delivery O2 Flow Rate FiO2 03/11/20 16:06 Room Air 03/11/20 15:00 98.5 64 18 100/52 (68) 95 98.5 03/11/20 08:00 1.0 Labs Labs Laboratory Tests Test 03/10/20 16:44 03/10/20 20:20 03/11/20 07:51 03/11/20 12:02 White Blood Count 6.9 x10^3/uL (4.0-11.0) Red Blood Count 4.92 x10^6/uL (3.50-5.40) Hemoglobin 14.0 g/dL (12.0-15.5) Hematocrit 41.7 % (36.0-47.0) Mean Corpuscular Volume 85 fL (79-100) Mean Corpuscular Hemoglobin 29 pg (25-35) Mean Corpuscular Hemoglobin Concent 34 g/dL (31-37) Red Cell Distribution Width 14.8 % (11.5-14.5) Platelet Count 122 x10^3/uL (140-400) Neutrophils (%) (Auto) 58 % (31-73) Lymphocytes (%) (Auto) 31 % (24-48) Monocytes (%) (Auto) 8 % (0-9) Eosinophils (%) (Auto) 3 % (0-3) Basophils (%) (Auto) 1 % (0-3) Neutrophils # (Auto) 4.0 x10^3/uL (1.8-7.7) Lymphocytes # (Auto) 2.1 x10^3/uL (1.0-4.8) Monocytes # (Auto) 0.5 x10^3/uL (0.0-1.1) Eosinophils # (Auto) 0.2 x10^3/uL (0.0-0.7) Basophils # (Auto) 0.1 x10^3/uL (0.0-0.2) Prothrombin Time 12.7 SEC (11.7-14.0) Prothromb Time International Ratio 1.0 (0.8-1.1) Sodium Level 145 mmol/L (136-145) Potassium Level 4.3 mmol/L (3.5-5.1) Chloride Level 106 mmol/L (98-107) Carbon Dioxide Level 31 mmol/L (21-32) Anion Gap 8 (6-14) Blood Urea Nitrogen 35 mg/dL (7-20) Creatinine 1.6 mg/dL (0.6-1.0) Estimated GFR (Cockcroft-Gault) 31.5 BUN/Creatinine Ratio 22 (6-20) Glucose Level 101 mg/dL (70-99) Calcium Level 9.0 mg/dL (8.5-10.1) Total Bilirubin 1.0 mg/dL (0.2-1.0) Aspartate Amino Transf (AST/SGOT) 25 U/L (15-37) Alanine Aminotransferase (ALT/SGPT) 32 U/L (14-59) Alkaline Phosphatase 64 U/L (46-116) Troponin I Quantitative < 0.017 ng/mL (0.000-0.055) Total Protein 7.6 g/dL (6.4-8.2) Albumin 3.8 g/dL (3.4-5.0) Albumin/Globulin Ratio 1.0 (1.0-1.7) Triglycerides Level 242 mg/dL (0-150) Cholesterol Level 131 mg/dL (0-200) LDL Cholesterol, Calculated 46 mg/dL (0-100) VLDL Cholesterol, Calculated 48 mg/dL (0-40) Non-HDL Cholesterol Calculated 94 mg/dL (0-129) HDL Cholesterol 37 mg/dL (40-60) Cholesterol/HDL Ratio 3.5 Glucose (Fingerstick) 80 mg/dL (70-99) 85 mg/dL (70-99) 178 mg/dL (70-99) Laboratory Tests Test 03/10/20 16:44 03/10/20 20:20 03/11/20 07:51 03/11/20 12:02 White Blood Count 6.9 x10^3/uL (4.0-11.0) Red Blood Count 4.92 x10^6/uL (3.50-5.40) Hemoglobin 14.0 g/dL (12.0-15.5) Hematocrit 41.7 % (36.0-47.0) Mean Corpuscular Volume 85 fL (79-100) Mean Corpuscular Hemoglobin 29 pg (25-35) Mean Corpuscular Hemoglobin Concent 34 g/dL (31-37) Red Cell Distribution Width 14.8 % (11.5-14.5) Platelet Count 122 x10^3/uL (140-400) Neutrophils (%) (Auto) 58 % (31-73) Lymphocytes (%) (Auto) 31 % (24-48) Monocytes (%) (Auto) 8 % (0-9) Eosinophils (%) (Auto) 3 % (0-3) Basophils (%) (Auto) 1 % (0-3) Neutrophils # (Auto) 4.0 x10^3/uL (1.8-7.7) Lymphocytes # (Auto) 2.1 x10^3/uL (1.0-4.8) Monocytes # (Auto) 0.5 x10^3/uL (0.0-1.1) Eosinophils # (Auto) 0.2 x10^3/uL (0.0-0.7) Basophils # (Auto) 0.1 x10^3/uL (0.0-0.2) Prothrombin Time 12.7 SEC (11.7-14.0) Prothromb Time International Ratio 1.0 (0.8-1.1) Sodium Level 145 mmol/L (136-145) Potassium Level 4.3 mmol/L (3.5-5.1) Chloride Level 106 mmol/L (98-107) Carbon Dioxide Level 31 mmol/L (21-32) Anion Gap 8 (6-14) Blood Urea Nitrogen 35 mg/dL (7-20) Creatinine 1.6 mg/dL (0.6-1.0) Estimated GFR (Cockcroft-Gault) 31.5 BUN/Creatinine Ratio 22 (6-20) Glucose Level 101 mg/dL (70-99) Calcium Level 9.0 mg/dL (8.5-10.1) Total Bilirubin 1.0 mg/dL (0.2-1.0) Aspartate Amino Transf (AST/SGOT) 25 U/L (15-37) Alanine Aminotransferase (ALT/SGPT) 32 U/L (14-59) Alkaline Phosphatase 64 U/L (46-116) Troponin I Quantitative < 0.017 ng/mL (0.000-0.055) Total Protein 7.6 g/dL (6.4-8.2) Albumin 3.8 g/dL (3.4-5.0) Albumin/Globulin Ratio 1.0 (1.0-1.7) Triglycerides Level 242 mg/dL (0-150) Cholesterol Level 131 mg/dL (0-200) LDL Cholesterol, Calculated 46 mg/dL (0-100) VLDL Cholesterol, Calculated 48 mg/dL (0-40) Non-HDL Cholesterol Calculated 94 mg/dL (0-129) HDL Cholesterol 37 mg/dL (40-60) Cholesterol/HDL Ratio 3.5 Glucose (Fingerstick) 80 mg/dL (70-99) 85 mg/dL (70-99) 178 mg/dL (70-99) VTE Prophylaxis Ordered VTE Prophylaxis Devices: Yes VTE Pharmacological Prophylaxi: Yes Assessment/Plan Assessment/Plan TIA suspect acute CVA History of diabetes mellitus type 2 Essential hypertension fairly controlled. Obesity Plan: will check hba1c will restart home meds MRI of the brain neuro checks reassess in the am will start ASA and STatin therapy follow recs from neurology further recommendations based on clinical course. DVT prophylaxis heparin Justicifation of Admission Dx: Justifications for Admission: Justification of Admission Dx: Yes Stroke - Ischemic: Stroke-Ischemic IRASEMA PABLO MD Mar 11, 2020 16:28
[2020-03-11 19:00] VITALS: BP 141/70
[2020-03-11] MEDS: ATORVASTATIN CALCIUM 40 MG TABLET. PO SCH (21:15)
[2020-03-11 23:00] VITALS: BP 126/66
[2020-03-12 03:00] VITALS: BP 121/67
[2020-03-12 04:09] LABS: HEMOGLOBIN A1C 6.7 % (4.8-5.6)
[2020-03-12] MEDS: HEPARIN for SUB-Q USE 5,000 UNIT/ML VIAL. SQ SCH (06:14)
[2020-03-12 07:00] VITALS: BP 150/54
[2020-03-12] MEDS: IPRATRPIUM/ALBUTEROL 0.5/2.5MG 3 ML NEBU. NEB SCH ×2 (07:42→11:38)
[2020-03-12] MEDS: INSULIN LISPRO 300 UNITS/3 ML VIAL. SQ SCH ×2 (07:48→11:44)
[2020-03-12] MEDS ORDERED: ASPIRIN ENTERIC COATED 325 MG TABLET.DR. PO SCH (08:00)
[2020-03-12] MEDS: CETIRIZINE HCL 10 MG TABLET. PO SCH (08:12)
[2020-03-12] MEDS: amLODIPine BESYLATE 5 MG TABLET PO SCH (08:12)
[2020-03-12] MEDS: LINAGLIPTIN 5 MG TABLET PO SCH (08:12)
[2020-03-12] MEDS: METOPROLOL TART IMMED RELEASE 25 MG TABLET. PO SCH (08:13)
--- NOTE | 2020-03-12 09:43 | PDOC ---
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 Follows commands, does not speak Wol[place] PERRL. EOMI. CN: no focal findings. Muscle tone: normal. Muscle strength: 5/5 DTR: 2+ Plantar reflex: flexor Gait: not examined in bed. Sensory exam: stocking loss. No cerebellar signs elicited. Review of Relevant I have reviewed the following items lety (where applicable) has been applied. Labs Laboratory Tests Test 03/10/20 16:44 03/10/20 20:20 03/11/20 07:51 03/11/20 12:02 White Blood Count 6.9 x10^3/uL (4.0-11.0) Red Blood Count 4.92 x10^6/uL (3.50-5.40) Hemoglobin 14.0 g/dL (12.0-15.5) Hematocrit 41.7 % (36.0-47.0) Mean Corpuscular Volume 85 fL (79-100) Mean Corpuscular Hemoglobin 29 pg (25-35) Mean Corpuscular Hemoglobin Concent 34 g/dL (31-37) Red Cell Distribution Width 14.8 % (11.5-14.5) Platelet Count 122 x10^3/uL (140-400) Neutrophils (%) (Auto) 58 % (31-73) Lymphocytes (%) (Auto) 31 % (24-48) Monocytes (%) (Auto) 8 % (0-9) Eosinophils (%) (Auto) 3 % (0-3) Basophils (%) (Auto) 1 % (0-3) Neutrophils # (Auto) 4.0 x10^3/uL (1.8-7.7) Lymphocytes # (Auto) 2.1 x10^3/uL (1.0-4.8) Monocytes # (Auto) 0.5 x10^3/uL (0.0-1.1) Eosinophils # (Auto) 0.2 x10^3/uL (0.0-0.7) Basophils # (Auto) 0.1 x10^3/uL (0.0-0.2) Prothrombin Time 12.7 SEC (11.7-14.0) Prothromb Time International Ratio 1.0 (0.8-1.1) Sodium Level 145 mmol/L (136-145) Potassium Level 4.3 mmol/L (3.5-5.1) Chloride Level 106 mmol/L (98-107) Carbon Dioxide Level 31 mmol/L (21-32) Anion Gap 8 (6-14) Blood Urea Nitrogen 35 mg/dL (7-20) Creatinine 1.6 mg/dL (0.6-1.0) Estimated GFR (Cockcroft-Gault) 31.5 BUN/Creatinine Ratio 22 (6-20) Glucose Level 101 mg/dL (70-99) Hemoglobin A1c 6.7 % (4.8-5.6) Calcium Level 9.0 mg/dL (8.5-10.1) Total Bilirubin 1.0 mg/dL (0.2-1.0) Aspartate Amino Transf (AST/SGOT) 25 U/L (15-37) Alanine Aminotransferase (ALT/SGPT) 32 U/L (14-59) Alkaline Phosphatase 64 U/L (46-116) Troponin I Quantitative < 0.017 ng/mL (0.000-0.055) Total Protein 7.6 g/dL (6.4-8.2) Albumin 3.8 g/dL (3.4-5.0) Albumin/Globulin Ratio 1.0 (1.0-1.7) Triglycerides Level 242 mg/dL (0-150) Cholesterol Level 131 mg/dL (0-200) LDL Cholesterol, Calculated 46 mg/dL (0-100) VLDL Cholesterol, Calculated 48 mg/dL (0-40) Non-HDL Cholesterol Calculated 94 mg/dL (0-129) HDL Cholesterol 37 mg/dL (40-60) Cholesterol/HDL Ratio 3.5 Glucose (Fingerstick) 80 mg/dL (70-99) 85 mg/dL (70-99) 178 mg/dL (70-99) Test 03/11/20 16:22 03/11/20 21:12 03/12/20 07:38 Glucose (Fingerstick) 132 mg/dL (70-99) 259 mg/dL (70-99) 125 mg/dL (70-99) Laboratory Tests Test 03/11/20 12:02 03/11/20 16:22 03/11/20 21:12 03/12/20 07:38 Glucose (Fingerstick) 178 mg/dL (70-99) 132 mg/dL (70-99) 259 mg/dL (70-99) 125 mg/dL (70-99) Medications Current Medications Insulin Human Lispro (HumaLOG) 0-7 UNITS TIDWMEALS SQ Last administered on 03/11/20at 12:18; Start 03/11/20 at 08:00 Dextrose (Dextrose 50%-Water Syringe) 12.5 gm PRN Q15MIN PRN IV SEE COMMENTS; Start 03/10/20 at 20:00 Albuterol Sulfate (Ventolin Neb Soln) 2.5 mg PRN Q4HRS PRN INH SHORTNESS OF BREATH; Start 03/10/20 at 22:00 Amlodipine Besylate (Norvasc) 5 mg DAILY PO Last administered on 03/12/20at 08:12; Start 03/11/20 at 09:00 Aspirin (Ecotrin) 81 mg DAILYWBKFT PO Last administered on 03/11/20at 08:32; Start 03/11/20 at 08:00; Stop 03/11/20 at 08:51; Status DC Atorvastatin Calcium (Lipitor) 40 mg HS PO Last administered on 03/11/20at 21:15; Start 03/10/20 at 22:30 Gabapentin (Neurontin) 100 mg PRN Q8HRS PRN PO PAIN; Start 03/10/20 at 22:00 Metoprolol Tartrate (Lopressor) 25 mg BID PO Last administered on 03/12/20at 08:13; Start 03/10/20 at 22:30 Cetirizine HCl (ZyrTEC) 10 mg DAILY PO Last administered on 03/12/20at 08:12; Start 03/11/20 at 09:00 Linagliptin (Tradjenta) 5 mg DAILY PO Last administered on 03/12/20at 08:12; Start 03/11/20 at 09:00 Non-Formulary Medication (Tiotropium Perry (Spiriva)) 1 cap DAILY IH ; Start 03/11/20 at 09:00; Status UNV Ondansetron HCl (Zofran) 4 mg PRN Q6HRS PRN IVP NAUSEA/VOMITING; Start 03/10/20 at 22:00 Acetaminophen (Tylenol) 650 mg PRN Q6HRS PRN PO MILD PAIN / TEMP > 100.3'F; Start 03/10/20 at 22:00; Stop 03/11/20 at 08:51; Status DC Heparin Sodium (Porcine) (Heparin Sodium) 5,000 unit Q8HRS SQ Last administered on 03/12/20at 06:14; Start 03/10/20 at 22:00 Albuterol/ Ipratropium (Duoneb) 3 ml RTQID NEB Last administered on 03/12/20at 0 7:42; Start 03/11/20 at 08:00 Acetaminophen (Tylenol) 650 mg PRN Q6HRS PRN PO TEMP > 100.4F; Start 03/11/20 at 09:00 Acetaminophen (Tylenol Supp) 650 mg PRN Q4HRS PRN OH TEMP > 100.4F; Start 03/11/20 at 09:00 Aspirin (Ecotrin) 325 mg DAILYWBKFT PO Last administered on 03/12/20at 08:12; Start 03/12/20 at 08:00 Aspirin (Aspirin Rectal Supp) 300 mg PRN DAILY PRN OH IF UNABLE TO TAKE PO; Start 03/11/20 at 09:00 Active Scripts Active Doxycycline Hyclate 100 Mg Tablet 1 Tab PO BID Prednisone (Prednisone) 10 Mg Tablet 10 Mg PO UD Take 5 tablets by mouth daily for 2 days, then take 4 tablets by mouth daily for 2 days, then take 3 tablets by mouth daily for 2 days, then take 2 tablets by mouth daily for 2 days, then take 1 tablets by mouth daily for 2 days, then stop. Tessalon Perle (Benzonatate) 100 Mg Capsule 1 Cap PO TID Spiriva (Tiotropium Perry) 18 Mcg Cap.w.dev 1 Cap IH DAILY Claritin (Loratadine) 10 Mg Tablet 1 Tab PO DAILY Losartan Potassium 50 Mg Tablet 50 Mg PO DAILY 30 Days Atorvastatin Calcium 40 Mg Tablet 1 Tab PO DAILY Reported Norvasc (Amlodipine Besylate) 5 Mg Tablet 5 Mg PO DAILY Proair Hfa (Albuterol Sulfate) 8.5 Gm Hfa.aer.ad 1 Puff INH QID PRN Januvia (Sitagliptin Phosphate) 50 Mg Tablet 1 Tab PO DAILY Metoprolol Tartrate 25 Mg Tablet 25 Mg PO BID Aspir 81 (Aspirin) 81 Mg Tablet.dr 1 Tab PO DAILY Glipizide Er (Glipizide) 2.5 Mg Tab.er.24 4 Tab PO DAILY Gave this morning Take again tomorrow morning Gabapentin (Gabapentin) 100 Mg Capsule 100 Mg PO PRN Q8HRS PRN Not given on this admission Take as previously directed Metformin Hcl Er (Metformin Hcl) 500 Mg Tab.er.24h 2 Tab PO BID Gave this morning Take again tonight Vitals/I & O Vital Sign - Last 24 Hours 03/11/20 03/11/20 03/11/20 03/11/20 15:00 16:06 19:00 20:00 Temp 98.5 98.3 98.5 98.3 Pulse 64 66 Resp 18 15 B/P (MAP) 100/52 (68) 141/70 (93) Pulse Ox 95 91 O2 Delivery Room Air Room Air Room Air Room Air 03/11/20 03/11/20 03/12/20 03/12/20 21:15 23:00 03:00 07:00 Temp 98.3 98.0 97.5 98.3 98.0 97.5 Pulse 66 58 60 59 Resp 15 15 18 B/P (MAP) 141/70 126/66 (86) 121/67 (85) 150/54 (86) Pulse Ox 91 92 97 O2 Delivery Room Air Room Air Room Air 03/12/20 03/12/20 03/12/20 03/12/20 07:43 08:00 08:12 08:13 Pulse 73 73 B/P (MAP) 150/54 150/54 O2 Delivery Room Air Room Air O2 Flow Rate 1.0 Intake and Output 03/11/20 03/11/20 03/12/20 15:00 23:00 07:00 Intake Total 200 ml 230 ml Balance 200 ml 230 ml Images BRAIN W/O CONTRAST History:Reason: TIA, left weakness, Technique: Multiplanar, multi sequential MR imaging was performed of the brain without contrast. Comparison: CT March 10, 2020. MRI December 07, 2015 Findings: Acute infarct within the right centrum semiovale. No additional infarct. No intracranial hemorrhage. No hydrocephalus. Chronic small basal ganglia and left thalamic lacunar infarcts. Partially empty sella, often incidental. Moderate focal and confluent foci of FLAIR hyperintensity within the hemispheric white matter and tea, most often due to chronic microvascular ischemia. Right anterior parafalcine extra-axial mass partially calcified measures 2.3 x 2.3 cm, unchanged. Punctate gradient hypointensity within the right medial frontal lobe, likely related to prior microhemorrhage. Imaged orbits are unremarkable. Imaged paranasal sinuses and mastoid air cells are clear. Impression: 1. Acute small right frontal infarct. 2. Unchanged right anterior parasagittal extra-axial mass, favor meningioma. 3. Moderate sequelae of chronic microvascular ischemia. DOPPLER CAROTID BILAT History: Reason: TIA, left paresis; / Spl. Instructions: / History: COMPARISON: None Technique: Duplex sonography of the cervical portion of both carotid arteries was performed. Real-time grayscale, color flow Doppler, and Doppler spectral waveform analysis is performed. PQRS Compliance Statement - Stenosis calculations for CT, MR and conventional angiography are based upon measurement of the distal ICA diameter in accordance with the NASCET methodology. Stenosis calculations for carotid ultrasound studies are derived from validated velocity criteria which are known to correlate with the NASCET methodology. Findings: Right side: Peak systolic flow velocity of the CCA is 80 cm/sec. Peak systolic flow velocity of the ICA is 123 cm/sec. The ICA/CCA ratio is 6.8. Peak end diastolic flow velocity of the ICA is 35 cm/sec. The peak systolic velocity of the ECA is 51 cm/sec. Moderate scattered atheromatous plaque most prominent within the carotid bifurcation. Enlarged right common carotid artery compared to the left. Left side: Peak systolic flow velocity of the CCA is 46 cm/sec. Peak systolic flow velocity of the ICA is 87 cm/sec. The ICA/CCA ratio is 1.9. Peak end diastolic flow velocity of the ICA is 23 cm/sec. Peak systolic flow velocity of the ECA is 41 cm/sec. Moderate scattered atheromatous plaque most prominent within the carotid bifurcation. Vertebral arteries: Bilateral vertebral arteries demonstrate antegrade flow. IMPRESSION: 1. Elevated right internal carotid to common carotid artery velocity ratio, may relate to increased size of the common carotid artery contributing to decreased velocity. No luminal stenosis seen on grayscale imaging. No velocity elevation to suggest stenosis. 2. Moderate bilateral atheromatous plaque. Echocardiogram: LEFT VENTRICLE The left ventricle is normal size. There is normal left ventricular wall thickness. The left ventricular systolic function is normal. The ejection fraction is 55-60%. There is normal LV segmental wall motion. RIGHT VENTRICLE The right ventricle is normal size. The right ventricular systolic function is normal. ATRIA The left atrium is mildly dilated. The right atrium is mildly dilated. The interatrial septum is intact with no evidence for an atrial septal defect or patent foramen ovale as noted on 2-D or Doppler imaging. AORTIC VALVE The aortic valve is thickened but opens well. Doppler and Color Flow revealed mild aortic regurgitation. There is no significant aortic valvular stenosis. MITRAL VALVE The mitral valve is thickened but opens well. There is no evidence of mitral valve prolapse. There is no mitral valve stenosis. Doppler and Color-flow revealed trace mitral regurgitation. TRICUSPID VALVE The tricuspid valve is normal in structure and function. Doppler and Color Flow revealed mild tricuspid regurgitation with an estimated PAP of 48 mmHg. There is no tricuspid valve stenosis. PULMONIC VALVE The pulmonary valve is normal in structure and function. Doppler and Color Flow revealed trace to mild pulmonic valvular regurgitation. GREAT VESSELS The aortic root is normal in size. The ascending aorta is normal in size. The IVC is dilated and collapses >50% with inspiration. PERICARDIAL EFFUSION There is no evidence of significant pericardial effusion. Critical Notification Critical Value: No <Conclusion> The left ventricular systolic function is normal. The ejection fraction is 55-60%. There is normal LV segmental wall motion. Mild aortic regurgitation. Trace mitral regurgitation. Mild tricuspid regurgitation with an estimated PAP of 48 mmHg. There is no evidence of significant pericardial effusion. Justicifation of Admission Dx: Justifications for Admission: Justification of Admission Dx: Yes Stroke - Ischemic: Stroke-Ischemic DUC KATE MD Mar 12, 2020 09:43
[2020-03-12 10:52] VITALS: BP 100/52
[2020-03-12] MEDS ORDERED: ATOR40TA59 PO (11:10)
--- NOTE | 2020-03-12 12:46 | NUR ---
Discharge Note: TRACEY LOPE[facility] Discharge instructions and discharge home medications reviewed with Patient and a copy given. All questions have been answered and understanding verbalized. The following instructions and handouts were given: f/u with pcp within one week. Discontinued lines and drains: Peripheral IV intact. Patient discharged to Home or Self Care with Family Member via Wheelchair
--- NOTE | 2020-03-12 15:19 | PDOC3 ---
Discharge Summary Visit Information Date of Admission: Mar 11, 2020 Date of Discharge: Mar 12, 2020 Admitting Diagnosis Comment: TIA suspect acute CVA History of diabetes mellitus type 2 Essential hypertension fairly controlled. 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 Diabetic neuropathy Essential Hypertension, diabetes type 2 well controlled with hba1c of 6.7 Dyslipidemia Brief Hospital Course Allergies Allergies Coded Allergies Type Severity Reaction Last Updated Verified No Known Drug Allergies 12/06/15 No Vital Signs Vital Signs Date Time Temp Pulse Resp B/P (MAP) Pulse Ox O2 Delivery O2 Flow Rate FiO2 03/12/20 11:39 94 Room Air 03/12/20 10:52 97.3 63 16 100/52 (68) 97.3 03/12/20 08:00 1.0 Lab Results Laboratory Tests Test 03/10/20 16:44 03/10/20 20:20 03/11/20 07:51 03/11/20 12:02 White Blood Count 6.9 x10^3/uL (4.0-11.0) Red Blood Count 4.92 x10^6/uL (3.50-5.40) Hemoglobin 14.0 g/dL (12.0-15.5) Hematocrit 41.7 % (36.0-47.0) Mean Corpuscular Volume 85 fL (79-100) Mean Corpuscular Hemoglobin 29 pg (25-35) Mean Corpuscular Hemoglobin Concent 34 g/dL (31-37) Red Cell Distribution Width 14.8 % (11.5-14.5) Platelet Count 122 x10^3/uL (140-400) Neutrophils (%) (Auto) 58 % (31-73) Lymphocytes (%) (Auto) 31 % (24-48) Monocytes (%) (Auto) 8 % (0-9) Eosinophils (%) (Auto) 3 % (0-3) Basophils (%) (Auto) 1 % (0-3) Neutrophils # (Auto) 4.0 x10^3/uL (1.8-7.7) Lymphocytes # (Auto) 2.1 x10^3/uL (1.0-4.8) Monocytes # (Auto) 0.5 x10^3/uL (0.0-1.1) Eosinophils # (Auto) 0.2 x10^3/uL (0.0-0.7) Basophils # (Auto) 0.1 x10^3/uL (0.0-0.2) Prothrombin Time 12.7 SEC (11.7-14.0) Prothromb Time International Ratio 1.0 (0.8-1.1) Sodium Level 145 mmol/L (136-145) Potassium Level 4.3 mmol/L (3.5-5.1) Chloride Level 106 mmol/L (98-107) Carbon Dioxide Level 31 mmol/L (21-32) Anion Gap 8 (6-14) Blood Urea Nitrogen 35 mg/dL (7-20) Creatinine 1.6 mg/dL (0.6-1.0) Estimated GFR (Cockcroft-Gault) 31.5 BUN/Creatinine Ratio 22 (6-20) Glucose Level 101 mg/dL (70-99) Hemoglobin A1c 6.7 % (4.8-5.6) Calcium Level 9.0 mg/dL (8.5-10.1) Total Bilirubin 1.0 mg/dL (0.2-1.0) Aspartate Amino Transf (AST/SGOT) 25 U/L (15-37) Alanine Aminotransferase (ALT/SGPT) 32 U/L (14-59) Alkaline Phosphatase 64 U/L (46-116) Troponin I Quantitative < 0.017 ng/mL (0.000-0.055) Total Protein 7.6 g/dL (6.4-8.2) Albumin 3.8 g/dL (3.4-5.0) Albumin/Globulin Ratio 1.0 (1.0-1.7) Triglycerides Level 242 mg/dL (0-150) Cholesterol Level 131 mg/dL (0-200) LDL Cholesterol, Calculated 46 mg/dL (0-100) VLDL Cholesterol, Calculated 48 mg/dL (0-40) Non-HDL Cholesterol Calculated 94 mg/dL (0-129) HDL Cholesterol 37 mg/dL (40-60) Cholesterol/HDL Ratio 3.5 Glucose (Fingerstick) 80 mg/dL (70-99) 85 mg/dL (70-99) 178 mg/dL (70-99) Test 03/11/20 16:22 03/11/20 21:12 03/12/20 07:38 03/12/20 11:20 Glucose (Fingerstick) 132 mg/dL (70-99) 259 mg/dL (70-99) 125 mg/dL (70-99) 272 mg/dL (70-99) Laboratory Tests Test 03/11/20 16:22 03/11/20 21:12 03/12/20 07:38 03/12/20 11:20 Glucose (Fingerstick) 132 mg/dL (70-99) 259 mg/dL (70-99) 125 mg/dL (70-99) 272 mg/dL (70-99) Brief Hospital Course Patient is a 74 year old female who has history of diabetes mellitus type 2 and essential hypertension who was in her usual state of health until Wednesday 2 days priro to her admission when she related to the rduaghter in law she felt left arm numbness. Patient symptoms resolved but recurred on Wednesday afternoon and she expressed having the sensation of a stroke. She has not suffered strokes in the past but due to her statement she was brought for evaluation to the ER Neurologically the patient seem to be intact GIGI score was 2 upon eval in the ER. 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 She denies headache no blurred vision no dysphnagia no odynophagia no facial droop no hemiparesis reported. She denies chest pain palpitation or shortness of breath. No abdominal pain no nausea vomiting or diarrhea reported no urinary symptoms. She will be admitted for further evaluation and neurology consultation . She was on aspirin therapy as well. The patient was deemed appropriate from the neurological standpoint of view she is on home oxygen as part of her comorb idities with COPD. No acute events reported overnight and she was in good spirits to be discharged home. We encouraged her to follow-up with her primary care physician within 1 week Discharge Information Condition at Discharge: Improved Follow Up: Weeks Disposition/Orders: D/C to Home Scheduled Amlodipine Besylate (Norvasc) 5 Mg Tablet, 5 MG PO DAILY for hypertension, (Reported) Entered as Reported by: LAURA CARBAJAL on 08/15/19 1623 Last Action: Continued on 03/10/202158 by MARGO COTO MD Aspirin (Aspir 81) 81 Mg Tablet.dr, 1 TAB PO DAILY, #30 Ref 5 (Reported) Entered as Reported by: MARILYN BENTLEY on 12/08/15 1332 Last Action: Continued on 03/10/202158 by MARGO COTO MD Atorvastatin Calcium (Atorvastatin Calcium) 40 Mg Tablet, 80 MG PO HS for cva for 30 Days, #60 Prescribed by: IRASEMA PABLO MD on 03/12/20 1110 Benzonatate (Tessalon Perle) 100 Mg Capsule, 1 CAP PO TID for cough, #30 Prescribed by: KARIME SUMMERS MD on 10/26/18 1443 Glipizide (Glipizide Er) 2.5 Mg Tab.er.24, 4 TAB PO DAILY for diabetes, #30 Ref 5 (Reported) Gave this morning Take again tomorrow morning Entered as Reported by: MARYCARMEN CARBONE on 12/06/15 1835 Loratadine (Claritin) 10 Mg Tablet, 1 TAB PO DAILY for allergies, #30 Ref 5 Prescribed by: KARIME SUMMERS MD on 10/25/18 1657 Last Action: Converted on 03/10/202158 by MARGO COTO MD Losartan Potassium (Losartan Potassium) 50 Mg Tablet, 50 MG PO DAILY for HYPERTENSION for 30 Days, #30 Prescribed by: KARIME SUMMERS MD on 10/25/18 1657 Metformin Hcl (Metformin Hcl Er) 500 Mg Tab.er.24h, 2 TAB PO BID for diabetes, #180 Ref 3 (Reported) Gave this morning Take again tonight Entered as Reported by: MARYCARMEN CARBONE on 12/06/15 1831 Metoprolol Tartrate (Metoprolol Tartrate) 25 Mg Tablet, 25 MG PO BID for FOR HYPERTENSION, #60 Ref 0 (Reported) Entered as Reported by: MARILYN BENTLEY on 12/08/15 1333 Last Action: Continued on 03/10/202158 by MARGO COOT MD Sitagliptin Phosphate (Januvia) 50 Mg Tablet, 1 TAB PO DAILY for diabetes, #30 Ref 5 (Reported) Entered as Reported by: ESTEFANIA IVY on 10/25/18 1604 Last Action: Converted on 03/10/202158 by MARGO COTO MD Tiotropium Ranger (Spiriva) 18 Mcg Cap.w.dev, 1 CAP IH DAILY for lungs, #30 Ref 3 Prescribed by: KARIME SUMMERS MD on 10/25/181656 Last Action: Converted on 03/10/202158 by MARGO COTO MD Scheduled PRN Albuterol Sulfate (Proair Hfa) 8.5 Gm Hfa.aer.ad, 1 PUFF INH QID PRN for SHORTNESS OF BREATH, (Reported) Entered as Reported by: ESTEFANIA IVY on 10/25/18 1604 Last Action: Continued on 03/10/202158 by MARGO COTO MD Gabapentin (Gabapentin ) 100 Mg Capsule, 100 MG PO PRN Q8HRS PRN for PAIN, (Reported) Not given on this admission Take as previously directed Entered as Reported by: MARYCARMEN CARBONE on 12/06/15 1833 Last Action: Continued on 03/10/202158 by MARGO COTO MD Discontinued Medications Atorvastatin Calcium (Atorvastatin Calcium) 40 Mg Tablet, 1 TAB PO DAILY for cho lesterol, #30 Ref 5 Prescribed by: KARIME SUMMERS MD on 10/25/181656 Last Action: Continued on 03/10/202158 by MARGO COTO MD Doxycycline Hyclate (Doxycycline Hyclate) 100 Mg Tablet, 1 TAB PO BID, #14 Prescribed by: Silvia Whitehead APRN on 12/21/19 0047 Prednisone (Prednisone ) 10 Mg Tablet, 10 MG PO UD for copd, #30 Ref 0 Take 5 tablets by mouth daily for 2 days, then take 4 tablets by mouth daily for 2 days, then take 3 tablets by mouth daily for 2 days, then take 2 tablets by mouth daily for 2 days, then take 1 tablets by mouth daily for 2 days, then stop. Prescribed by: KARIME SUMMERS MD on 10/26/18 1443 Justicifation of Admission Dx: Justifications for Admission: Justification of Admission Dx: Yes Stroke - Ischemic: Stroke-Ischemic IRASEMA PABLO MD Mar 12, 2020 15:19
[2020-03-12] MEDS ORDERED: ATORVASTATIN CALCIUM 40 MG TABLET. PO SCH (21:00)
== END 2020-03-12 12:47 | disposition home or self-care (01) | DRG 66 ==
LOC: ER 16:29 → 6 SOUTH 17:35
PROVIDERS: ADMIT Internal Medicine; ATTEND Internal Medicine
DX: I63.81 Other cerebral infarction due to occlusion or stenosis of small artery (principal); D32.9 Benign neoplasm of meninges, unspecified; E11.22 Type 2 diabetes mellitus with diabetic chronic kidney disease; E11.40 Type 2 diabetes mellitus with diabetic neuropathy, unspecified; E78.00 Pure hypercholesterolemia, unspecified; E66.9 Obesity, unspecified; I12.9 Hypertensive chronic kidney disease with stage 1 through stage 4 chronic kidney disease, or unspecified chronic kidney disease; E78.5 Hyperlipidemia, unspecified; Z86.011 Personal history of benign neoplasm of the brain; I25.10 Atherosclerotic heart disease of native coronary artery without angina pectoris; J44.9 Chronic obstructive pulmonary disease, unspecified; N18.9 Chronic kidney disease, unspecified; R29.702 NIHSS score 2; Z86.73 Personal history of transient ischemic attack (TIA), and cerebral infarction without residual deficits; Z95.1 Presence of aortocoronary bypass graft; Z95.5 Presence of coronary angioplasty implant and graft; Z99.81 Dependence on supplemental oxygen; Z68.30 Body mass index [BMI] 30.0-30.9, adult
CPT/HCPCS: 36415; 70450; 70551; 80053; 80061; 82962; 83036; 84484; 85025; 85610; 93005; 93306; 93880; 94640; J1644; J1815; 92610-GN; 99285-25; G0378

== ENCOUNTER → 2021-02-27 | Outpatient (CLI) | payer MEDICAID ==
--- NOTE | 2021-02-27 13:19 | RAD ---
EXAM: RENAL ULTRASOUND CLINICAL HISTORY: Reason: ACUTE RENAL FAILURE / Spl. Instructions: / History: COMPARISON: None available. TECHNIQUE: Ultrasound examination of the bilateral kidneys and urinary bladder was performed. FINDINGS: This exam is mildly limited given respiratory motion artifacts. The right kidney measures 10.1 cm in bipolar length. The renal cortex is normal in thickness. Renal e chogenicity is normal. There is no evidence for hydronephrosis, shadowing renal calculus or focal ab normality . The left kidney measures 8.2 cm in bipolar length. The renal cortex is normal in thickness. Renal ech ogenicity is normal. There is no evidence for hydronephrosis, shadowing renal calculus or focal abnor mality. Images of the partially filled urinary bladder are unremarkable. Bladder volume measures 144 mm. IMPRESSION: Normal sonographic survey of the kidneys and bladder. Electronically signed by: Leland Andrews MD (02/27/2021 1:17 PM) [place]
== END ==
LOC: US 11:57
PROVIDERS: ATTEND Internal Medicine Nephrology
DX: N17.9 Acute kidney failure, unspecified (principal)
CPT/HCPCS: 76770